=== PATIENT | female | born 1940 | race Caucasian/White ===

== ENCOUNTER 2018-09-18 13:35 | Inpatient (IN) ==
--- NOTE | 2018-09-18 13:57 | ED ---
HPI General Chief Complaint: Weakness Stated Complaint: Slurred Speech,Muscle Weakess Complaint Time Seen by Provider: 09/18/18 13:47 Source: patient Mode of arrival: wheelchair Limitations: other History of Present Illness HPI Narrative: The patient is a 78-year-old female who presents to the emergency department via private vehicle with her and a family friend for strokelike symptoms. The patient and her family and friends were going to lunch earlier today and stopped at approximately 1:30 PM to eat. When the patient tried to get out of the car she suddenly realized she had weakness and dysarthria. The family and friend immediately brought the patient to the emergency department. The patient did complain of weakness on the lower extremities bilaterally, dysarthria, and change in vision. The patient takes an aspirin a day, has no previous history of stroke. The patient does have a history of hypertension. Symptoms are moderate, started acutely at 130 P a.m. per Onset (ago): minute(s) Time: 13:59 Last Observed Normal: 13:30 Timing confirmed by: spouse and family member Location: Reports speech and right leg History of same: No Severity: moderate Quality: Reports weak Relieving factors: none Exacerbating factors: none On Anticoagulants: Yes (ASA) Related Data Allergies Allergy/AdvReac Type Severity Reaction Status Date / Time ampicillin Allergy Severe DIARRHEA Unverified 07/02/17 21:56 Review of Systems ROS: all other systems reviewed are negative [facility] Medical History Medical History Hypertension (Acute) Kidney disease (Acute) Social History Social History Substance History: No History of Abuse Second Hand Smoke Exposure: No Smoking Status: Never smoker How Often Do You Have a Drink Containing Alcohol: Never Recent Travel in [facility] within the Last 8 Weeks: No Recent Out of Country Travel within the Last 8 Weeks: No Immunization History Tetanus Immunization: <5 Years Exam Narrative Exam Narrative: GENERAL: Awake, alert, 78-year-old female who appears her stated age and is in no acute respiratory distress. SKIN: Focused skin assessment warm/dry. HEAD: Atraumatic. Normocephalic. EYES: Pupils equal and round. 3 mm bilateral and reactive. EOMs appear intact vertically and horizontally, however, patient has difficulty looking downwards. Patient is able to see fingers at a distance of 2 feet. However, visual dumont appear diminished in the lower dumont bilaterally. ENT: No nasal bleeding or discharge. Mucous membranes pink and moist. NECK: Trachea midline. No JVD. CARDIOVASCULAR: Regular rate and rhythm. No murmur appreciated. RESPIRATORY: No accessory muscle use. Clear to auscultation. Breath sounds equal bilaterally. GASTROINTESTINAL: Abdomen soft, non-tender, nondistended. Hepatic and splenic margins not palpable. MUSCULOSKELETAL: No obvious deformities. No clubbing. No cyanosis. No edema. NEUROLOGICAL: Awake and alert. Patient appears to have decreased visual dumont in the lower dumont bilaterally. Horizontal eye movements are intact, patient is able look vertically, occasionally has difficulty looking downwards. She is able to see fingers at a distance of 2 feet straight in front of her. Smile is symmetric. Tongue is midline. No drift of the upper extremities. Drift of the right lower extremity but it does not fall to the bed. Decreased sensation to soft touch right lower extremity. Sensation is symmetric on the arms and face. Finger to nose is normal. Heel to plascencia is normal. Patient is oriented x4. Mild dysarthria. PSYCHIATRIC: Appropriate mood and affect; insight and judgment normal. Course Initial Documented Vital Signs Temperature 98.2 F 09/18/18 13:42 Pulse Rate 96 H 09/18/18 13:42 Respiratory Rate 16 09/18/18 13:42 Blood Pressure 172/77 H 09/18/18 13:42 Pulse Oximetry 99 09/18/18 13:42 Last Documented Vital Signs Temperature 98.2 F 09/18/18 13:42 Pulse Rate 78 09/18/18 14:41 Respiratory Rate 19 09/18/18 14:41 Blood Pressure 160/72 H 09/18/18 14:41 Pulse Oximetry 100 09/18/18 14:41 Critical Care Time Critical Care Time: Yes Total Critical Care Time: 40 Attestation: Aggregate critical care time was 40 minutes. Time to perform other separately billable procedures was not included in the critical care time. My time did not include minutes spent treating any other patients simultaneously or on activities that did not directly contribute to the patient's treatment. The services I provided to this patient were to treat and/or prevent clinically significant deterioration that could result in: Hemorrhagic conversion, chronic neurologic deficit, aspiration, arrhythmia. I provided critical care services requiring my management, as noted below: Chart data review, documentation time, medication orders and management, vital sign assessments/reviewing monitor data, ordering and reviewing lab tests, ordering and interpreting/reviewing x-rays and diagnostic studies, care of the patient and discussion of the patient with the admitting physicians. NIH Stroke Scale NIH Stroke Scale Level of Consciousness: 0-Alert Orientation Questions: 0-Answers both correct Responds to Commands: 0-Both tasks correct Gaze Eye Movement: 0-Horizontal movement WNL Visual Dumont: 1-Partial hemianopia Facial Movement: 0-Normal Motor Functions Arm LEFT: 0-No drift Motor Functions Arm RIGHT: 0-No drift Motor Functions Leg LEFT: 0-No drift Motor Functions Leg RIGHT: 1-Drift before 5 seconds Limb Ataxia: 0-No ataxia Sensory Loss: 1-Mild sensory loss Best Language: 0-Normal Articulation: 1-Mild dysarthia Extinction or Inattention Sensory: 0-Absent Total: 4 Quality Measure Queries Stroke Last date observed well: 09/18/18 Last time observed well: 13:15 Medical Decision Making MDM Narrative Medical decision making narrative: The patient was brought back to echo room 50 immediately. The patient was placed on a stroke stretcher and an accurate weight was obtained. The patient stroke scale was obtained, was 4 with drift of the right lower extremity, decreased sensation right lower extremity, mild dysarthria, and visual field deficits of lower dumont bilaterally. I discussed the patient immediately with the neurologist, Dr. Mejía, who agrees with CT and CTA. He does recommend TPA if the patient's symptoms do not improve. I discussed the CT of the brain with the radiologist, Dr. Gómez, who states there is no acute intracranial hemorrhage. I had a discussion regarding TPA and the risk and benefits with the patient as well as the and friend at bedside. The patient is agreeable to TPA. The patient does have dysarthria and visual field deficits, most likely TPA is of benefit. The patient was hypertensive, therefore, was administered labetalol and placed on a Cardene drip. The patient will be admitted to the intensive surgical care unit for further evaluation. Medical Screen Exam Complete: Yes Emergency Medical Condition: Yes Differential Diagnosis Differential Diagnosis: Differential diagnosis includes CVA, TIA, hypertensive urgency, hypertensive emergency, intracranial hemorrhage, MS, transient focal neurologic deficit. Lab Data Lab results reviewed: Yes I reviewed the patient's lab results. Result diagrams: 09/18/18 13:50 Lab Results 09/18/18 09/18/18 09/18/18 Range/Units 13:50 13:50 13:50 WBC 9.2 (4.0-11.0) th/mm3 RBC 4.66 (4.00-5.30) mil/mm3 Hgb 15.0 (11.6-15.3) gm/dL POC Hgb (Calc) 13.9 (11.6-15.3) g/dL Hct 43.2 (35.0-46.0) % POC Hct 41.0 (35-46.0) % MCV 92.6 (80.0-100.0) fL MCH 32.1 (27.0-34.0) pg MCHC 34.6 (32.0-36.0) % RDW 13.8 (11.6-17.2) % Plt Count 248 (150-450) th/mm3 MPV 8.0 (7.0-11.0) fL Prelim Diff (Auto) Slide review pending Neut % (Auto) 65.1 (16.0-70.0) % Lymph % (Auto) 25.6 (9.0-44.0) % [place] % (Auto) 7.3 (0.0-8.0) % Eos % (Auto) 1.4 (0.0-4.0) % Baso % (Auto) 0.6 (0.0-2.0) % Neut # (Auto) 6.0 (1.8-7.7) th/mm3 Lymph # (Auto) 2.3 (1.0-4.8) th/mm3 [place] # (Auto) 0.7 (0.0-0.9) th/mm3 Eos # (Auto) 0.1 (0.0-0.4) th/mm3 Baso # (Auto) 0.1 (0.0-0.2) th/mm3 Differential Comment . PT 10.0 (9.8-11.6) sec INR 1.0 Ratio APTT 20.1 L (23.4-31.7) sec Fibrinogen 389 H (227-377) mg/dL POC Sodium 141 (137-144) mmol/L POC Potassium 4.3 (3.6-5.0) mmol/L POC Chloride 104 (102-111) mmol/L POC BUN 25 H (5-21) mg/dL POC Creatinine 1.4 H (0.6-1.3) mg/dL POC Glucose 94 (68-110) mg/dL Total Creatine Kinase 102 (26-192) U/L Troponin I Less than 0.02 L (0.02-0.05) ng/mL Beta HCG, Quant 5 (0-5) mIU/mL Imaging Data Radiologist's impression: Chest X-Ray 09/18/18 13:47 CONCLUSION: Mild interstitial prominence in the lungs. Old healed fracture of the right humerus. No infiltrate. Head CT 09/18/18 13:47 CONCLUSION: 1. Cerebral atrophy and chronic ischemic small vessel vasculopathy. Report was called by [Dr. Gómez to [facility] at 2:22 PM.] Discharge Plan Physicians Team ED Provider: Talat Youngblood Primary Care Provider: MITESH, Other Providers: Albert Mejía Discharge Interventions Interventions: Vital Signs Last Done: 09/18/18 14:13 Status ED Status: Admitted Patient
[2018-09-18] MEDS ORDERED: Alteplase Drip 61.5 MG in Syringe/Bag 1 EACH IV.SIG ONE (14:11)
[2018-09-18] MEDS ORDERED: Alteplase Bolus 9 MG/9 ML Syringe IV.PUSH ONE (14:11)
[2018-09-18 14:20] LABS: Baso # (Auto) 0.1 th/mm3 (0.0-0.2); Baso % (Auto) 0.6 % (0.0-2.0); Eos # (Auto) 0.1 th/mm3 (0.0-0.4); Eos % (Auto) 1.4 % (0.0-4.0); Hematocrit 43.2 % (35.0-46.0); Lymph # (Auto) 2.3 th/mm3 (1.0-4.8); Lymph % (Auto) 25.6 % (9.0-44.0); Mean Corpuscular HGB Conc 34.6 % (32.0-36.0); Mean Corpuscular Hemoglobin 32.1 pg (27.0-34.0); Mean Corpuscular Volume 92.6 fL (80.0-100.0); Mono # (Auto) 0.7 th/mm3 (0.0-0.9); Mono % (Auto) 7.3 % (0.0-8.0); Neut % (Auto) 65.1 % (16.0-70.0); Platelet Count 248 th/mm3 (150-450); Red Blood Count 4.66 mil/mm3 (4.00-5.30); Red Cell Distribution Width 13.8 % (11.6-17.2); White Blood Count 9.2 th/mm3 (4.0-11.0)
[2018-09-18] MEDS: niCARdipine Inj 25 MG in Sodium Chlor 0.9% Inj 240 ML IV.CONT PRN ×3 (14:20→23:08)
[2018-09-18] MEDS ORDERED: Labetalol HCl Inj 100 MG/20 ML Vial IV.PUSH ONE (14:23)
--- NOTE | 2018-09-18 14:26 | CT ---
EXAM DATE: 09/18/2018 2:00 PM EDT AGE/SEX: 78 years / Female INDICATIONS: Right side weakness CLINICAL DATA: This is the patient's initial encounter. Patient reports that signs and symptoms have been present for 1 day and indicates a pain score of 0/10. MEDICAL/SURGICAL HISTORY: Cerebrovascular disease. Hypertension. None. RADIATION DOSE: 32.47 CTDI (mGy) COMPARISON: [facility], CTA HEAD W CONTRAST W 3D, 09/18/2018. . TECHNIQUE: CT of the head without contrast. Using automated exposure control and adjustment of the mA and/or kV according to patient size, radiation dose was kept as low as reasonably achievable to ob tain optimal diagnostic quality images. DICOM format image data is available electronically for revi ew and comparison. FINDINGS: Cerebrum: The ventricles are normal for age. Mild cerebral atrophy. Areas of low attenuation through out the white matter. No evidence of midline shift, mass lesion, hemorrhage or acute infarction. No extraaxial fluid collections are seen. Posterior Fossa: The cerebellum and brainstem are intact. The 4th ventricle is midline. The cerebe llopontine angle is unremarkable. Extracranial: The visualized portion of the orbits is intact. Skull: The calvaria is intact. No evidence of skull fracture. CONCLUSION: 1. Cerebral atrophy and chronic ischemic small vessel vasculopathy. Report was called by [Dr. Gómez to [place] at 2:22 PM.] Electronically signed by: Freddy Gómez MD 09/18/2018 2:25 PM EDT
[2018-09-18 14:34] LABS: Activated Partial Thrombo Time 20.1 sec (23.4-31.7)
--- NOTE | 2018-09-18 14:38 | XR ---
EXAM DATE: 09/18/2018 2:25 PM EDT AGE/SEX: 78 years / Female INDICATIONS: Stroke alert. CLINICAL DATA: This is the patient's initial encounter. Patient reports that signs and symptoms have been present for 1 day and indicates a pain score of Nonresponsive. MEDICAL/SURGICAL HISTORY: None. None. COMPARISON: No prior exams available for comparison. FINDINGS: A single AP view of the chest demonstrates the lungs to be symmetrically aerated without evidence of mass, infiltrate or effusion. There is mild interstitial prominence throughout the lungs The cardiom ediastinal contours are unremarkable. Osseous structures are intact. CONCLUSION: Mild interstitial prominence in the lungs. Old healed fracture of the right humerus. No infiltrate. Electronically signed by: Srikanth Bellamy MD 09/18/2018 2:36 PM EDT
[2018-09-18 14:44] LABS: Beta HCG,Quantitative 5 mIU/mL (0-5)
[2018-09-18 14:46] LABS: Creatine Kinase 102 U/L (26-192)
--- NOTE | 2018-09-18 14:49 | CT ---
EXAM DATE: 09/18/2018 2:16 PM EDT AGE/SEX: 78 years / Female INDICATIONS: Stroke alert, right sided weakness CLINICAL DATA: This is the patient's initial encounter. Patient reports that signs and symptoms have been present for 1 day and indicates a pain score of 0/10. MEDICAL/SURGICAL HISTORY: Hypertension. None. RADIATION DOSE: 27.40 CTDI (mGy) ; Combined studies COMPARISON: [facility], CT HEAD W/O CONTRAST, 09/18/2018. . TECHNIQUE: Volumetric scanning was performed using a multi-row detector CT scanner during bolus infu dianelys of 80 ml Visipaque 320 (iodixanol) nonionic water-soluble contrast as a cumulative dose for mul tiple exams. The data was post processed with a variety of visualization algorithms including full volume maximum intensity projection, multi-planar sliding thin slab reformation, curved planar reform ation, and surface rendering techniques. Using automated exposure control and adjustment of the mA a nd/or kV according to patient size, radiation dose was kept as low as reasonably achievable to obtain optimal diagnostic quality images. DICOM format image data is available electronically for review a nd comparison. FINDINGS: Anterior Circulation: Intracranial Carotid Arteries: Right internal carotid artery is occluded. TODD: Slightly hypoplastic right A1 segment in comparison to the left. Otherwise, there is contralater al filling of the right TODD through the anterior communicating artery. No large vessel occlusion. MCA: Contralateral filling of the right MCA territories through the anterior communicating artery. Th e procedure indicating arteries are diminutive in caliber bilaterally. No evidence for large vessel o cclusion. Posterior Circulation: Distal Vertebral Arteries: Distal Vertebral arteries are symmetrical and patent. Basilar Artery: There is no evidence for aneurysm, vessel truncation or stenosis, and no evidence for vascular malformation. OCCUPATIONAL HEALTH PHYSIOTHERAPIST and Cerebellar Branches: There is no evidence for aneurysm, vessel truncation or stenosis, and no evidence for vascular malformation. CONCLUSION: 1. Occlusion of the right internal carotid artery. 2. Slightly hypoplastic right A1 segment. Otherwise, there is reconstitution of the anterior and mid dle cerebral arteries through the anterior communicating artery and likely posterior communicating ar teries although the P-comm's are also hypoplastic. No evidence for TODD or MCA large vessel occlusion. Electronically signed by: Samuel Portillo MD 09/18/2018 2:48 PM EDT
[2018-09-18] MEDS ORDERED: Bisacodyl 10 MG Supp RECTAL PRN (14:51)
[2018-09-18] MEDS ORDERED: Morphine Sulfate Inj 2 MG/ML Vial IV.PUSH PRN (14:51)
--- NOTE | 2018-09-18 15:13 | CT ---
EXAM DATE: 09/18/2018 3:00 PM EDT AGE/SEX: 78 years / Female INDICATIONS: Stroke alert, Right sided weakness CLINICAL DATA: This is the patient's initial encounter. Patient reports that signs and symptoms have been present for 1 day and indicates a pain score of 0/10. MEDICAL/SURGICAL HISTORY: Hypertension. None. RADIATION DOSE: 27.40 CTDI (mGy) ; Combined studies COMPARISON: . TECHNIQUE: Volumetric scanning was performed using a multirow detector CT scanner during bolus infus ion of 80 ml Visipaque 320 (iodixanol) nonionic water-soluble contrast as a cumulative dose for mult iple exams. The data was postprocessed with a variety of visualization algorithms including full-vo lume maximum intensity projection, multiplanar sliding thin-slab reformation, curved-planar reformati on, and surface-rendering techniques. Using automated exposure control and adjustment of the mA and/ or kV according to patient size, radiation dose was kept as low as reasonably achievable to obtain op timal diagnostic quality images. DICOM format image data is available electronically for review and comparison. FINDINGS: Aortic Arch: There is a three-vessel origin of the great vessels from the aorta. No evidence of ost ial narrowing Right Carotid: The common carotid artery is intact with mild atherosclerotic changes. There is compl ete occlusion of the right internal carotid artery starting at its origin. Left Carotid: The common carotid artery is intact. Mild atherosclerotic changes are seen at the orig in of the left internal carotid artery in the region of the bulb demonstrating mild narrowing without significant stenosis. The external carotid artery is intact. Vertebrals: The vertebral arteries have a symmetric diameter. No stenotic lesions are seen. Percent stenosis is calculated using the diameter of the stenotic region over the diameter of the nor mal distal internal carotid artery. CONCLUSION: 1. Complete occlusion of the right internal carotid artery. 2. Mild narrowing the left internal carotid artery. Electronically signed by: Freddy Gómez MD 09/18/2018 3:11 PM EDT
[2018-09-18 15:16] LABS: Platelet Estimate Normal (Normal); Platelet Morphology Normal (Normal); RBC Morphology Normal (Normal)
[2018-09-18 15:58] LABS: Bacteria,Urine Rare /hpf; Bilirubin,Urine Negative (Negative); Clarity,Urine Hazy (Clear); Color,Urine Yellow (Yellw/Straw); Glucose,Urine (UA) Negative (Negative); Leukocyte Esterase,Urine Trace (Negative); Nitrite,Urine Negative (Negative); Squamous Epithelial Cell,Urine 2 /hpf (0-5)
[2018-09-18 16:17] LABS: Amphetamine Screen,Urine Neg (Neg); Barbiturate Screen,Urine Neg (Neg); Cannabinoid Screen,Urine Neg (Neg); Cocaine Screen,Urine Neg (Neg)
[2018-09-18 16:34] LABS: Opiate Screen,Urine Neg (Neg)
[2018-09-18 17:36] LABS: Free T4 (Free Thyroxine) 0.94 ng/dL (0.76-1.46); Thyroid Stimulating Hormone 0.462 uIU/mL (0.358-3.740)
--- NOTE | 2018-09-18 18:02 | MB ---
cc: Albert Mejía MD DATE: 09/18/2018 HISTORY OF PRESENT ILLNESS: This is a 78-year-old right-handed woman with a history of hypertension, borderline diabetes, hypercholesterolemia, 1 kidney and hypothyroidism. She does take a baby aspirin a day. Today, she is going out for lunch and had a sudden onset of slurred speech and the car. She was driven here and was felt to have some numbness in the right leg, slurred speech and diminished vision inferiorly. As such, we did give her tPA. Her NIH stroke scale was 4 at that time. She has since recovered. SOCIAL HISTORY: Not a smoker or drinker. Lives with her . FAMILY HISTORY: Negative cancer, seizure, stroke. REVIEW OF SYSTEMS: She denied any history of MN, CABG, stent, angioplasty, atrial fibrillation, Coumadin, heart problems, hepatic or pulmonary disease, lupus, ulcer, cancer, seizure, prior stroke. MEDICATIONS AT HOME: She was taking a baby aspirin a day. Otherwise, none listed for home medications. PHYSICAL EXAMINATION: VITAL SIGNS: Sinus rhythm at 69. Afebrile. Highest pulse 104. Blood pressure initially up to 202/89. She was given a Cardene drip and down to 128/57, now 174/106. HEART: Regular rate and rhythm. I did not detect a murmur. There is probably a 2/6 systolic ejection murmur that radiates to the right carotid versus a carotid bruit, but I think probably more of a heart murmur that radiates there. NEUROLOGIC: The pupils are equal. Visual koehler are full. There is no diminished vision inferiorly. Extraocular movements intact without nystagmus. Face is symmetric with normal sensation. Tongue is midline. There is no drift. She has normal strength in her upper and lower extremities bilaterally. DTRs are trace throughout. Toes downgoing bilaterally. Pinprick is intact throughout except for mildly diminished at the feet bilaterally. She is not ataxic on [id number]. Speech is fluent. She is not aphasic. Names well and gives a good history. No longer slurred speech. LABORATORY DATA: CBC is normal. Urine drug screen pending. UA: 7 white cells, trace leukocyte esterase only. BMP: Creatinine is 1.4. Troponin, CPK, beta hCG, coags normal. A CT of the head was read as no AC or MC occlusion, but it turns out, she has a right internal carotid artery occlusion. She appears to fill well across the anterior communicating artery. Neck CTA showed a complete right internal carotid artery occlusion. ASSESSMENT AND PLAN: Her neurological exam is back to normal at this time. She does have that right carotid occlusion. It is unclear if that is old or not, probably I would suspect is chronic. We will check an MRI of the brain, an echo and a Holter. Twenty-four hours after the tPA is done, we will give her Plavix and I will be following in the hospital. MD BRANDI Ridley/obed , 04:07 PM , 04:17 PM
[2018-09-18] MEDS ORDERED: Gadobutrol PF 7.5 MMOL/7.5 ML Vial (for RAD) IV.SIG ONE (18:17)
--- NOTE | 2018-09-18 18:29 | ECHRPT ---
Indication: CVA/TIA CONCLUSIONS Normal left ventricular size. There is assymetric septal hypertrophy. The left ventricular systolic function is low normal with an estimated ejection fraction in the rang e of 50- 55%. Mild mitral valve regurgitation. Moderate mitral annular calcification. The estimated pulmonary arterial pressure is 29 mmHg. There is mild tricuspid valve regurgitation. There is a small pericardial effusion present. BP: / HR: Rhythm: MEASUREMENTS (Male / Female) Normal Values Technical Quality:Very technically difficult study 2D ECHO LV Diastolic Diameter PLAX 3.3 cm 4.2 - 5.9 / 3.9 - 5.3 cm LV Systolic Diameter PLAX 2.6 cm IVS Diastolic Thickness 2.1 cm 0.6 - 1.0 / 0.6 - 0.9 cm LVPW Diastolic Thickness 1.4 cm 0.6 - 1.0 / 0.6 - 0.9 cm LV Relative Wall Thickness 1.1 RV Internal Dim ED PLAX 2.1 cm LVOT Diameter 1.5 cm Aortic Root Diameter 2.1 cm LA Systolic Diameter LX 3.5 cm 3.0 - 4.0 / 2.7 - 3.8 cm M-MODE Aortic Root Diameter MM 2.8 cm LA Systolic Diameter MM 4.3 cm LA Ao Ratio MM 1.5 AV Cusp Separation MM 1.5 cm DOPPLER AV Peak Velocity 155.0 cm/s AV Peak Gradient 9.6 mmHg LVOT Peak Velocity 129.0 cm/s LVOT Peak Gradient 6.7 mmHg AV Area Cont Eq pk 1.5 cm Mitral E Point Velocity 44.9 cm/s Mitral A Point Velocity 78.0 cm/s Mitral E to A Ratio 0.6 LV E' Lateral Velocity 3.9 cm/s Mitral E to LV E' Lateral Ratio 11.5 LV E' Septal Velocity 3.8 cm/s Mitral E to LV E' Septal Ratio 11.8 TR Peak Velocity 218.0 cm/s TR Peak Gradient 19.0 mmHg Right Atrial Pressure 10.0 mmHg Pulmonary Artery Systolic Pressu 29.0 mmHg Right Ventricular Systolic Press 29.0 mmHg PV Peak Velocity 141.0 cm/s PV Peak Gradient 8.0 mmHg FINDINGS LEFT VENTRICLE Normal left ventricular size. There is assymetric septal hypertrophy. The left ventricular systolic function is low normal with an estimated ejection fraction in the rang e of 50- 55%. No regional wall motion abnormalities are present. RIGHT VENTRICLE Normal right ventricular size and systolic function. LEFT ATRIUM The left atrial size is normal. RIGHT ATRIUM The right atrial size is normal. ATRIAL SEPTUM Normal atrial septal thickness without atrial level shunting by limited color doppler interrogation. AORTA The aortic root and proximal ascending aorta are normal in size on limited imaging. MITRAL VALVE Structurally normal mitral valve. Mild mitral valve regurgitation. Moderate mitral annular calcification. AORTIC VALVE The aortic valve is not well visualized. Aortic valve sclerosis is present. No aortic valve stenosis or regurgitation. TRICUSPID VALVE The tricuspid valve is not well visualized. The estimated pulmonary arterial pressure is 29 mmHg. There is mild tricuspid valve regurgitation. PULMONARY VALVE No pulmonary valve regurgitation or stenosis. VESSELS The inferior vena cava is normal in size. PERICARDIUM There is a small pericardial effusion present. [address] (Electronically Signed) Final Date:18 September 2018 18:29
[2018-09-18] MEDS ORDERED: Dextrose 50% in Water 50 ML Vial IV.PUSH PRN (18:31)
--- NOTE | 2018-09-18 18:37 | P.HPCC ---
History of Present Illness Service: Critical care medicine Primary Care Physician: UNKNOWN Chief Complaint: Slurred speech, unsteady walking History of Present Illness: This 78-year-old right-handed woman developed sudden speech difficulty earlier today and when attempting to walk she was unsteady. Her family recognized stroke symptomatology and brought her straight to the emergency department where she was found to be dysarthric, unsteady, and weak in the right arm. Blood pressure was controlled with nicardipine and she received TPA after consultation with the neurologist. I have seen her initially on the floor following her arrival and her symptoms have largely resolved. She does sense that her words were abnormal initially despite appearing normal to others. Her history is significant for hypertension and diabetes. We will plan to hold her outpatient antihypertensives, amlodipine and clonidine, tonight and adjust the Cardene drip for better control. - Diagnosis (1) Hypertensive urgency (2) Acute CVA (cerebrovascular accident) (3) Dysarthria Inpatient Certification: I certify that the inpatient services were ordered in accordance with Medicare regulations governing the order. This includes certification that hospital inpatient services are reasonable and necessary and in the case of services not specified as inpatient-only under 42 CFR 419.22(n), that they are appropriately provided as inpatient services in accordance to with the 2-midnight benchmark under 43 CFR 412.3(e) Estimated Total Length of Stay (Days): 3 Plans for Post Hospital Care: Home Review of Systems No chest pain or shortness of breath. PMFSH - History History Provided By: Patient - Medical History Medical History: Medical History (Last Updated 09/18/18 @ 13:56 by Mariela Gonzalez) Hypertension Kidney disease - Tobacco History Second Hand Smoke Exposure: No Smoking Status: Never smoker - Alcohol History How Often Do You Have a Drink Containing Alcohol: Never - Substance Use History Substance History: No History of Abuse - Travel History Recent Travel in the [place] Within the Last 8 Weeks: No Recent Travel Out of the Country Within the Last 8 Weeks: No - Immunization History Tetanus Immunization: <5 Years Medications and Allergies Active Medications: Active Medications Al Hydroxide/Mg Hydroxide (Milk Of Magnesia Liq) 30 ml PO Q12H PRN PRN Reason: Mild Constipation Albuterol (Duoneb Neb (Prn)) 1 ampul NEB Q2HR NEB PRN PRN Reason: WHEEZING Bisacodyl (Dulcolax Supp) 10 mg RECTAL DAILY PRN PRN Reason: SEVERE CONSITIPATION Chlorhexidine Gluconate (Chlorhexidine 2% Cloth) 3 pack TOPICAL DAILY@0400 CORDELIA Stop: 09/24/18 03:59 Chlorhexidine Gluconate (Chlorhexidine 2% Cloth) 3 pack TOPICAL DAILY@0400 PRN PRN Reason: Extra cloth needed Stop: 09/24/18 03:59 Dextrose (D50w Vial) 50 ml IV.PUSH UNSCH PRN PRN Reason: PER HYPOGLYCEMIA PROTOCOL Famotidine (Pepcid Pf Inj) 20 mg IV.PUSH Q12HR CORDEL[place] Glucagon (Glucagon Inj) 1 mg OTHER PRN PRN PRN Reason: for Hypoglycemia Protocol Hydralazine HCl (Apresoline Inj) 10 mg IV.PUSH Q2H PRN PRN Reason: SBP > 170 Sodium Chloride (Ns Inj) 1,000 mls @ 70 mls/hr IV.CONT .[id number] CORDELIA Nicardipine HCl 25 mg/ Sodium (Chloride) 250 mls @ 50 mls/hr IV.CONT TITRATE PRN; Protocol PRN Reason: Per Protocol Last Titration: 09/18/18 15:11 Dose: 0 mg/hr, 0 mls/hr Insulin Aspart (Novolog Insulin Correctional Sugar Inj) 0 unit SQ Q6HR [facility]; Protocol Labetalol HCl (Trandate Inj) 20 mg IV.PUSH Q2H PRN PRN Reason: SBP > 180 Lactulose (Lactulose Liq) 30 ml PO DAILY PRN PRN Reason: SEVERE CONSITIPATION Morphine Sulfate (Morphine Inj) 2 mg IV.PUSH Q2H PRN PRN Reason: PAIN SCALE 6 TO 10 Senna/Docusate Sodium (Camila-Colace) 1 tab PO BID [facility] Sennosides (Senokot) 17.2 mg PO Q12H PRN PRN Reason: Moderate Constipation Sodium Chloride (Ns Flush) 2 ml IV.FLUSH BID [facility] Sodium Chloride (Ns Flush) 2 ml IV.FLUSH PRN PRN PRN Reason: FLUSH AFTER USING IV ACCESS Allergies Allergy/AdvReac Type Severity Reaction Status Date / Time ampicillin Allergy Severe DIARRHEA Unverified 07/02/17 21:56 Home Medications Medication Instructions Recorded Confirmed Type amlodipine 10 mg PO DAILY 09/18/18 09/18/18 History clonidine HCl 0.1 mg PO BID 09/18/18 09/18/18 History glipizide 5 mg PO DAILY 09/18/18 09/18/18 History linagliptin [Tradjenta] 5 mg PO DAILY 09/18/18 09/18/18 History lovastatin 20 mg PO HS 09/18/18 09/18/18 History omeprazole 20 mg PO HS 09/18/18 09/18/18 History Results - Labs CBC & Chem 7: 09/18/18 13:50 Labs: Short CBC 09/18/18 Range/Units 13:50 WBC 9.2 (4.0-11.0) th/mm3 Hgb 15.0 (11.6-15.3) gm/dL Hct 43.2 (35.0-46.0) % Plt Count 248 (150-450) th/mm3 Cardiac Enzymes 09/18/18 Range/Units 13:50 Total Creatine Kinase 102 (26-192) U/L Troponin I Less than 0.02 L (0.02-0.05) ng/mL Urine 09/18/18 Range/Units 15:30 Urine Color Yellow (Yellw/Straw) Urine Clarity Hazy H (Clear) Urine pH 6.0 (5.0-8.5) Ur Specific Jackson 1.020 (1.002-1.035) Urine Protein 500 or greater (Neg-Trace) mg/dL Urine Glucose (UA) Negative (Negative) mg/dL - Imaging Impressions Chest X-Ray 09/18/18 13:47 CONCLUSION: Mild interstitial prominence in the lungs. Old healed fracture of the right humerus. No infiltrate. Head CT 09/18/18 13:47 CONCLUSION: 1. Cerebral atrophy and chronic ischemic small vessel vasculopathy. Report was called by [Dr. Gómez to [place] at 2:22 PM.] Head CTA 09/18/18 13:47 CONCLUSION: 1. Occlusion of the right internal carotid artery. 2. Slightly hypoplastic right A1 segment. Otherwise, there is reconstitution of the anterior and middle cerebral arteries through the anterior communicating artery and likely posterior communicating arteries although the P-comm's are also hypoplastic. No evidence for TODD or MCA large vessel occlusion. Neck CTA 09/18/18 13:47 CONCLUSION: 1. Complete occlusion of the right internal carotid artery. 2. Mild narrowing the left internal carotid artery. Exam Vital signs: Vital Signs 09/18/18 13:42 09/18/18 13:45 09/18/18 13:49 Temperature 98.2 F Pulse Rate 96 H Respiratory Rate 16 Blood Pressure 172/77 H Pulse Oximetry 99 96 96 09/18/18 14:13 09/18/18 14:26 09/18/18 14:41 Temperature Pulse Rate 84 73 78 Respiratory Rate 20 19 19 Blood Pressure 202/89 H 173/74 H 160/72 H Pulse Oximetry 100 110 H 100 09/18/18 14:56 09/18/18 15:05 09/18/18 15:11 Temperature Pulse Rate 75 84 78 Respiratory Rate 18 19 Blood Pressure 162/72 H 153/69 H 126/58 L Pulse Oximetry 98 99 99 09/18/18 15:15 09/18/18 15:20 09/18/18 15:34 Temperature Pulse Rate 80 73 104 H Respiratory Rate 17 20 17 Blood Pressure 142/71 H 154/79 H 128/57 L Pulse Oximetry 99 100 100 09/18/18 15:47 09/18/18 15:56 09/18/18 16:10 Temperature Pulse Rate 69 75 81 Respiratory Rate 20 19 Blood Pressure 174/106 H 206/83 H 154/69 H Pulse Oximetry 99 96 09/18/18 16:26 09/18/18 17:00 Temperature Pulse Rate 83 90 Respiratory Rate 20 20 Blood Pressure 150/72 H 146/77 H Pulse Oximetry 97 98 Intake & Output 09/17/18 09/18/18 09/18/18 18:59 06:59 18:59 Intake Total 61.5 / 61.5 Balance 61.5 / 61.5 Weight 76.2 kg Intake: IV 61.5 / 61.5 Activase Drip 61.5 MG In Bag/ 61.5 / 61.5 Syringe 1 EACH @ 61.5 mls/hr IV .SIG ONCE ONE Rx#:[id number] Narrative: General: Calm, alert Head: Atraumatic, normal Neck: Supple, airway widely patent, no obstructive sounds Lungs: Clear bilaterally, no wheezes or crackles, comfortable respiratory pattern Heart: Normal S1-S2, regular rate and rhythm, 3/6 systolic murmur RSB, 2nd ICS, no JVD Abdomen: Soft, nondistended, no guarding, bowel sounds active Extremities: Warm, well-perfused, no peripheral edema Neuro: Pupils are equal and react to light. Extraocular movements are intact. She moves 4 extremities to command and spontaneously. 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 Caprini VTE Risk Assessment Caprini VTE Risk Assessment: Moderate/High Risk (score >= 2) VTE Pharmacological Exception Reason: High risk for bleeding Caprini Risk Assessment Model: Point Value = 1 Point Value = 2 Point Value = 3 Point Value = 5 Age 41-60 Minor surgery BMI > 25 kg/m2 Swollen legs Varicose veins or History of unexplained or recurrent spontaneous Oral contraceptives or hormone replacement Sepsis (< 1 month) Serious lung disease, including pneumonia (< 1 month) Abnormal pulmonary function Acute myocardial infarction Congestive heart failure (< 1 month) History of inflammatory bowel disease Medical patient at bed rest Age 61-74 Arthroscopic surgery Major open surgery (> 45 min) Laparoscopic surgery (> 45 min) Malignancy Confined to bed (> 72 hours) Immobilizing plaster cast Central venous access Age >= 75 History of VTE Family history of VTE Factor V Leiden Prothrombin [id number] Lupus anticoagulant Anticardiolipin antibodies Elevated serum homocysteine Heparin-induced thrombocytopenia Other congenital or acquired thrombophilia Stroke (< 1 month) Elective arthroplasty Hip, pelvis, or leg fracture Acute spinal cord injury (< 1 month) Prophylaxis Regimen: Total Risk Factor Score Risk Level Prophylaxis Regimen 0-1 Low Early ambulation 2 Moderate Order ONE of the following: *Sequential Compression Device (SCD) *Heparin 5000 units SQ BID 3-4 Higher Order ONE of the following medications: *Heparin 5000 units SQ TID *Enoxaparin/Lovenox 40 mg SQ daily (WT < 150 kg, CrCl > 30 mL/min) *Enoxaparin/Lovenox 30 mg SQ daily (WT < 150 kg, CrCl > 10-29 mL/min) *Enoxaparin/Lovenox 30 mg SQ BID (WT < 150 kg, CrCl > 30 mL/min) AND/OR *Sequential Compression Device (SCD) 5 or more Highest Order ONE of the following medications: *Heparin 5000 units SQ TID (Preferred with Epidurals) *Enoxaparin/Lovenox 40 mg SQ daily (WT < 150 kg, CrCl > 30 mL/min) *Enoxaparin/Lovenox 30 mg SQ daily (WT < 150 kg, CrCl > 10-29 mL/min) *Enoxaparin/Lovenox 30 mg SQ BID (WT < 150 kg, CrCl > 30 mL/min) AND *Sequential Compression Device (SCD) Assessment and Plan - Problem List (1) Hypertensive urgency Code(s): I16.0 - Hypertensive urgency Status: Acute (2) Acute CVA (cerebrovascular accident) Code(s): I63.9 - Cerebral infarction, unspecified Status: Acute (3) Dysarthria Code(s): R47.1 - Dysarthria and anarthria Status: Acute - Assessment and Plan Plan: Plan: 1. Maintain blood pressure control with nicardipine, and aim for less than 160 systolic after TPA 2. Restart amlodipine and clonidine in a.m. 3. Repeat head CT after 24 hours 4. Lipid profile 5. Cardiac echo 6. Post TPA order set protocol 7. Pepcid for GI ulcer prophylaxis 8. No chemical DVT prophylaxis due to risk of bleed 9. Serial neurologic exams 10. Maintenance IV isotonic crystalloid Overall impression: Patient arrived critically ill with acute ischemic cerebrovascular accident including dysarthria and right extremity weakness. She required nicardipine for control of hypertensive urgency and subsequently received TPA. We will follow her neurologic exam closely tonight and maintain blood pressure control. She has a murmur consistent with aortic stenosis - review ECHO. Critical care 38 minutes
[2018-09-18] MEDS: Sod Chloride 0.9% Inj 1,000 ML IV.CONT SCH (18:52)
--- NOTE | 2018-09-18 19:12 | MR ---
EXAM DATE: 09/18/2018 6:29 PM EDT AGE/SEX: 78 years / Female INDICATIONS: CVA. CLINICAL DATA: This is the patient's initial encounter. Patient reports that signs and symptoms have been present for 1 day and indicates a pain score of 0/10. MEDICAL/SURGICAL HISTORY: Hypertension. Renal disease, end stage. Appendectomy. sect ion. COMPARISON: No prior exams available for comparison. TECHNIQUE: Multiplanar, multisequence examination of the brain was performed without and with 7.5 ml Gadavist (gadobutrol) contrast as a single exam dose. FINDINGS: There is moderate chronic ischemic changes in the periventricular white matter. No recent infarct jarad ntified on diffusion-weighted images. Absent flow void distal right internal carotid artery character istic of right internal carotid artery occlusion. No mass effect or midline shift. No hydrocephalus. No abnormal extra-axial fluid. No abnormal enhanci ng lesions within the brain. CONCLUSION: 1. No acute findings. No recent infarct. 2. Occlusion of the distal right internal carotid artery. Moderate to severe chronic white matter is chemic changes. Electronically signed by: Bunny Warner MD 09/18/2018 7:11 PM EDT
[2018-09-18] MEDS: Famotidine PF Inj 20 MG/2 ML Vial IV.PUSH SCH (21:27)
[2018-09-18] MEDS: Senna/Docusate Sodium 8.6/50 MG Tablet PO SCH (21:27)
[2018-09-19] MEDS: Insulin NovoLOG Aspart Correctional Sugar Inj SQ SCH ×4 (01:32→18:53)
[2018-09-19] MEDS: niCARdipine Inj 25 MG in Sodium Chlor 0.9% Inj 240 ML IV.CONT PRN ×2 (01:32→09:28)
[2018-09-19] MEDS ORDERED: Chlorhexidine Gluconate 2% 1 Pack (2 Cloths) TOPICAL PRN (04:00)
[2018-09-19] MEDS: Chlorhexidine Gluconate 2% 1 Pack (2 Cloths) TOPICAL SCH (05:44)
[2018-09-19] MEDS: Sod Chloride 0.9% Inj 1,000 ML IV.CONT SCH ×2 (06:53→18:53)
--- NOTE | 2018-09-19 08:11 | P.PNNEU ---
Subjective Active Medications: Active Medications Al Hydroxide/Mg Hydroxide (Milk Of Magnesia Liq) 30 ml PO Q12H PRN PRN Reason: Mild Constipation Albuterol (Duoneb Neb (Prn)) 1 ampul NEB Q2HR NEB PRN PRN Reason: WHEEZING Bisacodyl (Dulcolax Supp) 10 mg RECTAL DAILY PRN PRN Reason: SEVERE CONSITIPATION Chlorhexidine Gluconate (Chlorhexidine 2% Cloth) 3 pack TOPICAL DAILY@0400 [facility] Stop: 09/24/18 03:59 Last Admin: 09/19/18 05:44 Dose: 3 pack Chlorhexidine Gluconate (Chlorhexidine 2% Cloth) 3 pack TOPICAL DAILY@0400 PRN PRN Reason: Extra cloth needed Stop: 09/24/18 03:59 Dextrose (D50w Vial) 50 ml IV.PUSH UNSCH PRN PRN Reason: PER HYPOGLYCEMIA PROTOCOL Famotidine (Pepcid Pf Inj) 20 mg IV.PUSH Q12HR [facility] Last Admin: 09/18/18 21:27 Dose: 20 mg Glucagon (Glucagon Inj) 1 mg OTHER PRN PRN PRN Reason: for Hypoglycemia Protocol Hydralazine HCl (Apresoline Inj) 10 mg IV.PUSH Q2H PRN PRN Reason: SBP > 170 Sodium Chloride (Ns Inj) 1,000 mls @ 70 mls/hr IV.CONT .[id number] [facility] Last Admin: 09/19/18 06:53 Dose: 70 mls/hr Nicardipine HCl 25 mg/ Sodium (Chloride) 250 mls @ 50 mls/hr IV.CONT TITRATE PRN; Protocol PRN Reason: Per Protocol Last Admin: 09/19/18 01:32 Dose: 5 mg/hr, 50 mls/hr Insulin Aspart (Novolog Insulin Correctional Sugar Inj) 0 unit SQ Q6HR [facility]; Protocol Last Admin: 09/19/18 06:53 Dose: Not Given Labetalol HCl (Trandate Inj) 20 mg IV.PUSH Q2H PRN PRN Reason: SBP > 180 Lactulose (Lactulose Liq) 30 ml PO DAILY PRN PRN Reason: SEVERE CONSITIPATION Morphine Sulfate (Morphine Inj) 2 mg IV.PUSH Q2H PRN PRN Reason: PAIN SCALE 6 TO 10 Senna/Docusate Sodium (Camila-Colace) 1 tab PO BID [facility] Last Admin: 09/18/18 21:27 Dose: Not Given Sennosides (Senokot) 17.2 mg PO Q12H PRN PRN Reason: Moderate Constipation Sodium Chloride (Ns Flush) 2 ml IV.FLUSH BID [facility] Last Admin: 09/18/18 21:27 Dose: 2 ml Sodium Chloride (Ns Flush) 2 ml IV.FLUSH PRN PRN PRN Reason: FLUSH AFTER USING IV ACCESS Allergies/Adverse Reactions: Allergies Allergy/AdvReac Type Severity Reaction Status Date / Time ampicillin Allergy Intermediate DIARRHEA Verified 09/18/18 23:08 Physical Exam Vital signs: Vital Signs 09/18/18 13:42 09/18/18 13:45 09/18/18 13:49 Temperature 98.2 F Pulse Rate 96 H Respiratory Rate 16 Blood Pressure 172/77 H Pulse Oximetry 99 96 96 09/18/18 14:13 09/18/18 14:26 09/18/18 14:41 Temperature Pulse Rate 84 73 78 Respiratory Rate 20 19 19 Blood Pressure 202/89 H 173/74 H 160/72 H Pulse Oximetry 100 110 H 100 09/18/18 14:56 09/18/18 15:05 09/18/18 15:11 Temperature Pulse Rate 75 84 78 Respiratory Rate 18 19 Blood Pressure 162/72 H 153/69 H 126/58 L Pulse Oximetry 98 99 99 09/18/18 15:15 09/18/18 15:20 09/18/18 15:34 Temperature Pulse Rate 80 73 104 H Respiratory Rate 17 20 17 Blood Pressure 142/71 H 154/79 H 128/57 L Pulse Oximetry 99 100 100 09/18/18 15:47 09/18/18 15:56 09/18/18 16:10 Temperature Pulse Rate 69 75 81 Respiratory Rate 20 19 Blood Pressure 174/106 H 206/83 H 154/69 H Pulse Oximetry 99 96 09/18/18 16:26 09/18/18 17:00 09/18/18 18:45 Temperature Pulse Rate 83 90 75 Respiratory Rate 20 20 21 Blood Pressure 150/72 H 146/77 H Pulse Oximetry 97 98 98 09/18/18 18:46 09/18/18 19:00 09/18/18 19:01 Temperature 97.9 F Pulse Rate 72 71 71 Respiratory Rate 25 H 26 H 24 Blood Pressure 177/77 H 150/67 H Pulse Oximetry 98 98 99 09/18/18 19:16 09/18/18 19:31 09/18/18 19:44 Temperature Pulse Rate 73 73 Respiratory Rate 25 H 23 Blood Pressure 130/61 137/60 Pulse Oximetry 96 96 94 L 09/18/18 19:46 09/18/18 20:00 09/18/18 20:01 Temperature 98.1 F Pulse Rate 73 76 76 Respiratory Rate 48 H 39 H 30 H Blood Pressure 138/65 149/70 H Pulse Oximetry 95 95 93 L 09/18/18 20:16 09/18/18 20:31 09/18/18 20:46 Temperature Pulse Rate 74 75 77 Respiratory Rate 30 H 20 19 Blood Pressure 132/63 116/58 L 113/58 L Pulse Oximetry 95 93 L 94 L 09/18/18 21:00 09/18/18 21:01 09/18/18 21:16 Temperature Pulse Rate 77 78 77 Respiratory Rate 23 25 H 25 H Blood Pressure 128/60 131/61 Pulse Oximetry 93 L 93 L 94 L 09/18/18 21:31 09/18/18 21:46 09/18/18 22:00 Temperature Pulse Rate 76 77 76 Respiratory Rate 21 29 H 20 Blood Pressure 120/58 L 122/60 Pulse Oximetry 94 L 95 94 L 09/18/18 22:01 09/18/18 22:16 09/18/18 22:31 Temperature Pulse Rate 76 78 72 Respiratory Rate 21 45 H 30 H Blood Pressure 119/56 L 136/60 111/56 L Pulse Oximetry 94 L 96 95 09/18/18 22:46 09/18/18 23:00 09/18/18 23:01 Temperature Pulse Rate 70 73 71 Respiratory Rate 18 24 20 Blood Pressure 105/52 L 116/53 L Pulse Oximetry 95 92 L 93 L 09/18/18 23:16 09/18/18 23:31 09/18/18 23:46 Temperature Pulse Rate 76 72 75 Respiratory Rate 56 H 20 24 Blood Pressure 127/65 115/58 L 112/55 L Pulse Oximetry 98 95 94 L 09/19/18 00:00 09/19/18 00:01 09/19/18 00:16 Temperature 97.9 F Pulse Rate 74 73 81 Respiratory Rate 25 H 24 29 H Blood Pressure 120/59 L 120/59 L 123/60 Pulse Oximetry 95 96 95 09/19/18 00:31 09/19/18 00:46 09/19/18 01:00 Temperature Pulse Rate 75 66 71 Respiratory Rate 43 H 20 28 H Blood Pressure 111/56 L 108/55 L Pulse Oximetry 95 98 97 09/19/18 01:01 09/19/18 01:16 09/19/18 01:31 Temperature Pulse Rate 69 72 69 Respiratory Rate 21 19 18 Blood Pressure 126/57 L 111/54 L 110/55 L Pulse Oximetry 97 95 93 L 09/19/18 01:46 09/19/18 02:00 09/19/18 02:01 Temperature Pulse Rate 72 69 69 Respiratory Rate 21 21 20 Blood Pressure 127/63 128/61 Pulse Oximetry 94 L 92 L 92 L 09/19/18 02:16 09/19/18 02:31 09/19/18 02:46 Temperature Pulse Rate 69 70 76 Respiratory Rate 20 19 31 H Blood Pressure 113/58 L 120/56 L 137/62 Pulse Oximetry 92 L 90 L 97 09/19/18 03:00 09/19/18 03:01 09/19/18 03:16 Temperature Pulse Rate 73 73 74 Respiratory Rate 26 H 29 H 38 H Blood Pressure 124/58 L 128/60 Pulse Oximetry 98 98 98 09/19/18 03:31 09/19/18 03:32 09/19/18 03:46 Temperature Pulse Rate 75 75 75 Respiratory Rate 37 H 30 H 20 Blood Pressure 151/65 H 154/60 H 133/58 L Pulse Oximetry 99 98 97 09/19/18 04:00 09/19/18 04:01 09/19/18 04:16 Temperature 98 F Pulse Rate 76 75 78 Respiratory Rate 20 19 30 H Blood Pressure 131/62 136/61 Pulse Oximetry 94 L 94 L 96 09/19/18 04:31 09/19/18 04:46 09/19/18 05:00 Temperature Pulse Rate 75 76 77 Respiratory Rate 20 25 H 19 Blood Pressure 128/62 131/62 Pulse Oximetry 90 L 95 95 09/19/18 05:01 09/19/18 05:16 09/19/18 05:31 Temperature Pulse Rate 78 79 78 Respiratory Rate 25 H 22 38 H Blood Pressure 123/58 L 128/62 128/61 Pulse Oximetry 96 95 97 09/19/18 05:46 09/19/18 06:00 09/19/18 06:01 Temperature Pulse Rate 77 82 81 Respiratory Rate 23 29 H 32 H Blood Pressure 124/58 L 132/62 Pulse Oximetry 95 96 96 09/19/18 06:16 09/19/18 06:31 Temperature Pulse Rate 80 81 Respiratory Rate 29 H 42 H Blood Pressure 132/63 136/56 L Pulse Oximetry 95 97 Intake & Output 09/18/18 09/19/18 09/19/18 18:59 06:59 18:59 Intake Total 61.5 / 61.5 1750 / 1750 Output Total 500 / 500 Balance 61.5 / 61.5 1250 / 1250 Weight 76.2 kg 78.7 kg Intake: IV 61.5 / 61.5 1750 / 1750 NS Inj 1,000 ML @ 70 mls/hr IV. 1000 / 1000 CONT .[id number] [facility] Rx#:[id number] Cardene Inj 25 MG In NS Inj 240 750 / 750 ML @ 5 MG/HR 50 mls/hr IV.CONT TITRATE PRN Rx#:[id number] Activase Drip 61.5 MG In Bag/ 61.5 / 61.5 Syringe 1 EACH @ 61.5 mls/hr IV .SIG ONCE ONE Rx#:[id number] Output: Urine 500 / 500 Other: # Voids 1 2 Weight On Admission 76.2 kg Narrative: sr vff face sym nl speech 5/5 t/o Objective Laboratory Results - last 24 hr 09/18/18 09/18/18 09/18/18 13:50 13:50 13:50 WBC 9.2 RBC 4.66 Hgb 15.0 POC Hgb (Calc) 13.9 Hct 43.2 POC Hct 41.0 MCV 92.6 MCH 32.1 MCHC 34.6 RDW 13.8 Plt Count 248 MPV 8.0 Prelim Diff (Auto) Slide review pending Neut % (Auto) 65.1 Lymph % (Auto) 25.6 [place] % (Auto) 7.3 Eos % (Auto) 1.4 Baso % (Auto) 0.6 Neut # (Auto) 6.0 Lymph # (Auto) 2.3 [place] # (Auto) 0.7 Eos # (Auto) 0.1 Baso # (Auto) 0.1 WBC Differential . Diff Scan Auto diff confirmed Differential Comment . Platelet Estimate Normal Platelet Morphology Normal RBC Morphology Normal ESR PT 10.0 INR 1.0 APTT 20.1 L Fibrinogen 389 H POC Sodium 141 POC Potassium 4.3 POC Chloride 104 POC BUN 25 H POC Creatinine 1.4 H POC Glucose 94 Total Creatine Kinase 102 Troponin I Less than 0.02 L Vitamin B12 TSH Free T4 Beta HCG, Quant 5 Urine Color Urine Clarity Urine pH Ur Specific [place] Urine Protein Urine Glucose (UA) Urine Ketones Urine Occult Blood Urine Nitrate Urine Bilirubin Urine Urobilinogen Ur Leukocyte Esterase Urine RBC Urine WBC Ur Squamous Epith Cells Urine Bacteria Micro UA Comment Ur Microscopic Review Urine Culture Comments Nasal Screen MRSA (PCR) Urine Opiates Screen Ur Barbiturates Screen Ur Amphetamines Screen U Benzodiazepines Scrn Urine Cocaine Screen U Cannabinoids Screen Blood Type Blood Type Recheck Antibody Screen 09/18/18 09/18/18 09/18/18 13:50 13:50 13:50 WBC RBC Hgb POC Hgb (Calc) Hct POC Hct MCV MCH MCHC RDW Plt Count MPV Prelim Diff (Auto) Neut % (Auto) Lymph % (Auto) [place] % (Auto) Eos % (Auto) Baso % (Auto) Neut # (Auto) Lymph # (Auto) [place] # (Auto) Eos # (Auto) Baso # (Auto) WBC Differential Diff Scan Differential Comment Platelet Estimate Platelet Morphology RBC Morphology ESR 18 PT INR APTT Fibrinogen POC Sodium POC Potassium POC Chloride POC BUN POC Creatinine POC Glucose Total Creatine Kinase Troponin I Vitamin B12 494 TSH 0.462 Free T4 0.94 Beta HCG, Quant Urine Color Urine Clarity Urine pH Ur Specific [place] Urine Protein Urine Glucose (UA) Urine Ketones Urine Occult Blood Urine Nitrate Urine Bilirubin Urine Urobilinogen Ur Leukocyte Esterase Urine RBC Urine WBC Ur Squamous Epith Cells Urine Bacteria Micro UA Comment Ur Microscopic Review Urine Culture Comments Nasal Screen MRSA (PCR) Urine Opiates Screen Ur Barbiturates Screen Ur Amphetamines Screen U Benzodiazepines Scrn Urine Cocaine Screen U Cannabinoids Screen Blood Type A Positive Blood Type Recheck Not needed Antibody Screen Negative 09/18/18 09/18/18 09/18/18 15:30 15:30 23:00 WBC RBC Hgb POC Hgb (Calc) Hct POC Hct MCV MCH MCHC RDW Plt Count MPV Prelim Diff (Auto) Neut % (Auto) Lymph % (Auto) [place] % (Auto) Eos % (Auto) Baso % (Auto) Neut # (Auto) Lymph # (Auto) [place] # (Auto) Eos # (Auto) Baso # (Auto) WBC Differential Diff Scan Differential Comment Platelet Estimate Platelet Morphology RBC Morphology ESR PT INR APTT Fibrinogen POC Sodium POC Potassium POC Chloride POC BUN POC Creatinine POC Glucose Total Creatine Kinase Troponin I Vitamin B12 TSH Free T4 Beta HCG, Quant Urine Color Yellow Urine Clarity Hazy H Urine pH 6.0 Ur Specific [place] 1.020 Urine Protein 500 or greater Urine Glucose (UA) Negative Urine Ketones Negative Urine Occult Blood Negative Urine Nitrate Negative Urine Bilirubin Negative Urine Urobilinogen Less than 2 Ur Leukocyte Esterase Trace H Urine RBC 2 Urine WBC 7 H Ur Squamous Epith Cells 2 Urine Bacteria Rare H Micro UA Comment Cath-culture ind Ur Microscopic Review Not Reportable Urine Culture Comments Cath-cult indicated Nasal Screen MRSA (PCR) Not detected Urine Opiates Screen Neg Ur Barbiturates Screen Neg Ur Amphetamines Screen Neg U Benzodiazepines Scrn Neg Urine Cocaine Screen Neg U Cannabinoids Screen Neg Blood Type Blood Type Recheck Antibody Screen 09/19/18 09/19/18 00:03 06:49 WBC RBC Hgb POC Hgb (Calc) Hct POC Hct MCV MCH MCHC RDW Plt Count MPV Prelim Diff (Auto) Neut % (Auto) Lymph % (Auto) [place] % (Auto) Eos % (Auto) Baso % (Auto) Neut # (Auto) Lymph # (Auto) [place] # (Auto) Eos # (Auto) Baso # (Auto) WBC Differential Diff Scan Differential Comment Platelet Estimate Platelet Morphology RBC Morphology ESR PT INR APTT Fibrinogen POC Sodium POC Potassium POC Chloride POC BUN POC Creatinine POC Glucose 128 H 141 H Total Creatine Kinase Troponin I Vitamin B12 TSH Free T4 Beta HCG, Quant Urine Color Urine Clarity Urine pH Ur Specific [place] Urine Protein Urine Glucose (UA) Urine Ketones Urine Occult Blood Urine Nitrate Urine Bilirubin Urine Urobilinogen Ur Leukocyte Esterase Urine RBC Urine WBC Ur Squamous Epith Cells Urine Bacteria Micro UA Comment Ur Microscopic Review Urine Culture Comments Nasal Screen MRSA (PCR) Urine Opiates Screen Ur Barbiturates Screen Ur Amphetamines Screen U Benzodiazepines Scrn Urine Cocaine Screen U Cannabinoids Screen Blood Type Blood Type Recheck Antibody Screen Review/Management - Review/Management Plan: imp no cva on mri ldl nl r ica old occlusion plan is plavix start 75 at 24 hours post tpa and fu echo and holter and ok to dc if echo neg oob ok
[2018-09-19] MEDS: Senna/Docusate Sodium 8.6/50 MG Tablet PO SCH ×3 (09:27→20:41)
[2018-09-19] MEDS: Famotidine PF Inj 20 MG/2 ML Vial IV.PUSH SCH ×2 (09:27→20:14)
--- NOTE | 2018-09-19 09:51 | P.PNCC ---
Subjective Subjective Remarks/Hospital Course: This 78-year-old right-handed woman developed sudden speech difficulty earlier today and when attempting to walk she was unsteady. Her family recognized stroke symptomatology and brought her straight to the emergency department where she was found to be dysarthric, unsteady, and weak in the right arm. Blood pressure was controlled with nicardipine and she received TPA after consultation with the neurologist. I have seen her initially on the floor following her arrival and her symptoms have largely resolved. She does sense that her words were abnormal initially despite appearing normal to others. Her history is significant for hypertension and diabetes. We will plan to hold her outpatient antihypertensives, amlodipine and clonidine, tonight and adjust the Cardene drip for better control. 09/19: MRI shows no acute injury. Chronically occluded distal right internal carotid artery observed. Cardiac echo without obvious cause for TIA/CVA. Mild mitral regurgitation, low normal EF, sinus mechanism. Neurology service would like to see her Holter monitor reading before discharge. - Diagnosis (1) Hypertensive urgency (2) Acute CVA (cerebrovascular accident) (3) Dysarthria Objective Vital Signs / I&O: Vital Signs 09/18/18 13:42 09/18/18 13:45 09/18/18 13:49 Temperature 98.2 F Pulse Rate 96 H Respiratory Rate 16 Blood Pressure 172/77 H Pulse Oximetry 99 96 96 09/18/18 14:13 09/18/18 14:26 09/18/18 14:41 Temperature Pulse Rate 84 73 78 Respiratory Rate 20 19 19 Blood Pressure 202/89 H 173/74 H 160/72 H Pulse Oximetry 100 110 H 100 09/18/18 14:56 09/18/18 15:05 09/18/18 15:11 Temperature Pulse Rate 75 84 78 Respiratory Rate 18 19 Blood Pressure 162/72 H 153/69 H 126/58 L Pulse Oximetry 98 99 99 09/18/18 15:15 09/18/18 15:20 09/18/18 15:34 Temperature Pulse Rate 80 73 104 H Respiratory Rate 17 20 17 Blood Pressure 142/71 H 154/79 H 128/57 L Pulse Oximetry 99 100 100 09/18/18 15:47 09/18/18 15:56 09/18/18 16:10 Temperature Pulse Rate 69 75 81 Respiratory Rate 20 19 Blood Pressure 174/106 H 206/83 H 154/69 H Pulse Oximetry 99 96 09/18/18 16:26 09/18/18 17:00 09/18/18 18:45 Temperature Pulse Rate 83 90 75 Respiratory Rate 20 20 21 Blood Pressure 150/72 H 146/77 H Pulse Oximetry 97 98 98 09/18/18 18:46 09/18/18 19:00 09/18/18 19:01 Temperature 97.9 F Pulse Rate 72 71 71 Respiratory Rate 25 H 26 H 24 Blood Pressure 177/77 H 150/67 H Pulse Oximetry 98 98 99 09/18/18 19:16 09/18/18 19:31 09/18/18 19:44 Temperature Pulse Rate 73 73 Respiratory Rate 25 H 23 Blood Pressure 130/61 137/60 Pulse Oximetry 96 96 94 L 09/18/18 19:46 09/18/18 20:00 09/18/18 20:01 Temperature 98.1 F Pulse Rate 73 76 76 Respiratory Rate 48 H 39 H 30 H Blood Pressure 138/65 149/70 H Pulse Oximetry 95 95 93 L 09/18/18 20:16 09/18/18 20:31 09/18/18 20:46 Temperature Pulse Rate 74 75 77 Respiratory Rate 30 H 20 19 Blood Pressure 132/63 116/58 L 113/58 L Pulse Oximetry 95 93 L 94 L 09/18/18 21:00 09/18/18 21:01 09/18/18 21:16 Temperature Pulse Rate 77 78 77 Respiratory Rate 23 25 H 25 H Blood Pressure 128/60 131/61 Pulse Oximetry 93 L 93 L 94 L 09/18/18 21:31 09/18/18 21:46 09/18/18 22:00 Temperature Pulse Rate 76 77 76 Respiratory Rate 21 29 H 20 Blood Pressure 120/58 L 122/60 Pulse Oximetry 94 L 95 94 L 09/18/18 22:01 09/18/18 22:16 09/18/18 22:31 Temperature Pulse Rate 76 78 72 Respiratory Rate 21 45 H 30 H Blood Pressure 119/56 L 136/60 111/56 L Pulse Oximetry 94 L 96 95 09/18/18 22:46 09/18/18 23:00 09/18/18 23:01 Temperature Pulse Rate 70 73 71 Respiratory Rate 18 24 20 Blood Pressure 105/52 L 116/53 L Pulse Oximetry 95 92 L 93 L 09/18/18 23:16 09/18/18 23:31 09/18/18 23:46 Temperature Pulse Rate 76 72 75 Respiratory Rate 56 H 20 24 Blood Pressure 127/65 115/58 L 112/55 L Pulse Oximetry 98 95 94 L 09/19/18 00:00 09/19/18 00:01 09/19/18 00:16 Temperature 97.9 F Pulse Rate 74 73 81 Respiratory Rate 25 H 24 29 H Blood Pressure 120/59 L 120/59 L 123/60 Pulse Oximetry 95 96 95 09/19/18 00:31 09/19/18 00:46 09/19/18 01:00 Temperature Pulse Rate 75 66 71 Respiratory Rate 43 H 20 28 H Blood Pressure 111/56 L 108/55 L Pulse Oximetry 95 98 97 09/19/18 01:01 09/19/18 01:16 09/19/18 01:31 Temperature Pulse Rate 69 72 69 Respiratory Rate 21 19 18 Blood Pressure 126/57 L 111/54 L 110/55 L Pulse Oximetry 97 95 93 L 09/19/18 01:46 09/19/18 02:00 09/19/18 02:01 Temperature Pulse Rate 72 69 69 Respiratory Rate 21 21 20 Blood Pressure 127/63 128/61 Pulse Oximetry 94 L 92 L 92 L 09/19/18 02:16 09/19/18 02:31 09/19/18 02:46 Temperature Pulse Rate 69 70 76 Respiratory Rate 20 19 31 H Blood Pressure 113/58 L 120/56 L 137/62 Pulse Oximetry 92 L 90 L 97 09/19/18 03:00 09/19/18 03:01 09/19/18 03:16 Temperature Pulse Rate 73 73 74 Respiratory Rate 26 H 29 H 38 H Blood Pressure 124/58 L 128/60 Pulse Oximetry 98 98 98 09/19/18 03:31 09/19/18 03:32 09/19/18 03:46 Temperature Pulse Rate 75 75 75 Respiratory Rate 37 H 30 H 20 Blood Pressure 151/65 H 154/60 H 133/58 L Pulse Oximetry 99 98 97 09/19/18 04:00 09/19/18 04:01 09/19/18 04:16 Temperature 98 F Pulse Rate 76 75 78 Respiratory Rate 20 19 30 H Blood Pressure 131/62 136/61 Pulse Oximetry 94 L 94 L 96 09/19/18 04:31 11/02/18 04:46 09/19/18 05:00 Temperature Pulse Rate 75 76 77 Respiratory Rate 20 25 H 19 Blood Pressure 128/62 131/62 Pulse Oximetry 90 L 95 95 09/19/18 05:01 09/19/18 05:16 09/19/18 05:31 Temperature Pulse Rate 78 79 78 Respiratory Rate 25 H 22 38 H Blood Pressure 123/58 L 128/62 128/61 Pulse Oximetry 96 95 97 09/19/18 05:46 09/19/18 06:00 09/19/18 06:01 Temperature Pulse Rate 77 82 81 Respiratory Rate 23 29 H 32 H Blood Pressure 124/58 L 132/62 Pulse Oximetry 95 96 96 09/19/18 06:16 09/19/18 06:31 Temperature Pulse Rate 80 81 Respiratory Rate 29 H 42 H Blood Pressure 132/63 136/56 L Pulse Oximetry 95 97 Intake & Output 09/18/18 09/19/18 09/19/18 18:59 06:59 18:59 Intake Total 61.5 / 61.5 1999 Output Total 500 / 500 Balance 61.5 / 61.5 1500 / 1500 Weight 76.2 kg 78.7 kg Intake: IV 61.5 / 61.5 1999 NS Inj 1,000 ML @ 70 mls/hr IV. 1000 / 1000 CONT .[id number] [facility] Rx#:[id number] Cardene Inj 25 MG In NS Inj 240 1000 / 1000 ML @ 5 MG/HR 50 mls/hr IV.CONT TITRATE PRN Rx#:[id number] Activase Drip 61.5 MG In Bag/ 61.5 / 61.5 Syringe 1 EACH @ 61.5 mls/hr IV .SIG ONCE ONE Rx#:[id number] Output: Urine 500 / 500 Other: # Voids 1 2 Weight On Admission 76.2 kg Result Diagrams: 09/18/18 13:50 Objective Remarks: Narrative: General: Calm, alert Head: Atraumatic, normal Neck: Supple, airway widely patent, no obstructive sounds Lungs: Clear bilaterally, no wheezes or crackles, comfortable respiratory pattern Heart: Normal S1-S2, regular rate and rhythm, 3/6 systolic murmur RSB, no JVD Abdomen: Soft, nondistended, nontender, no guarding, bowel sounds active Extremities: Warm, well-perfused, no peripheral edema Neuro: Pupils are equal and react to light. Extraocular movements are intact. She moves 4 extremities to command and spontaneously. Oriented x3, conversant, speech and medical receptionist intact. Assessment and Plan - Problem List (1) Hypertensive urgency Code(s): I16.0 - Hypertensive urgency Status: Acute (2) Acute CVA (cerebrovascular accident) Code(s): I63.9 - Cerebral infarction, unspecified Status: Acute (3) Dysarthria Code(s): R47.1 - Dysarthria and anarthria Status: Acute - Assessment and Plan Plan: Plan: 1. Maintain blood pressure control with nicardipine, convert to amlodipine and clonidine. 2. Restart amlodipine and clonidine 3. Repeat head CT today 24 hours after TPA 4. Lipid profile 5. Cardiac echo 6. Post TPA order set protocol 7. Pepcid for GI ulcer prophylaxis 8. No chemical DVT prophylaxis due to risk of bleed 9. Serial neurologic exams 10. Maintenance IV isotonic crystalloid 11. Swallow eval, cardiac diet. 12. Transfer to floor 13. Start Plavix 75 mg daily at 1700 today (24 hours after TPA) per Neurology Service Overall impression: Patient arrived critically ill with acute ischemic cerebrovascular accident including dysarthria and right extremity weakness. She required nicardipine for control of hypertensive urgency and subsequently received TPA. She had a good response with return of speech and right-sided strength. MRI is significant for chronically occluded distal right internal carotid artery. Cardiac echo is largely benign. Holter monitor is in progress.
[2018-09-19] MEDS: amLODIPine 10 MG Tablet PO SCH (10:10)
[2018-09-19] MEDS: Dexmedetomidine Inj 200 MCG in Sodium Chlor 0.9% Inj 48 ML IV.CONT PRN ×2 (15:00→19:40)
--- NOTE | 2018-09-19 15:37 | CT ---
EXAM DATE: 09/19/2018 3:31 PM EDT AGE/SEX: 78 years / Female INDICATIONS: Status post TPA. CLINICAL DATA: This is the patient's initial encounter. Patient reports that signs and symptoms have been present for 2 days and indicates a pain score of Nonresponsive. MEDICAL/SURGICAL HISTORY: Hypertension. Cerebrovascular disease. Renal disease. None. RADIATION DOSE: 31.30 CTDI (mGy) COM[place]: [facility] [place] & W/O [place]AST, 09/18/2018. [facility] [place]/O CONTRAST, 09/18/2018. . TECHNIQUE: CT of the head without contrast. Using automated exposure control and adjustment of the mA and/or kV according to patient size, radiation dose was kept as low as reasonably achievable to ob tain optimal diagnostic quality images. DICOM format image data is available electronically for revi ew and comparison. FINDINGS: Examination quality is degraded by motion artifact. Cerebrum: There is mild generalized atrophy and ventricles are normal given the degree of atrophy. M oderate periventricular white matter change is present. No midline shift, mass lesion, hemorrhage or acute infarction. No extraaxial fluid collections are seen. Posterior Fossa: The cerebellum and brainstem demonstrate no acute abnormality. The 4th ventricle is midline. The cerebellopontine angle is within normal limits. Extracranial: The visualized sinuses are clear. Skull: The calvaria is intact. No skull fracture. CONCLUSION: 1. Examination quality is degraded by motion artifact. No hemorrhage is identified. 2. Chronic findings include mild generalized atrophy and moderate periventricular white matter walker eTariq . Electronically signed by: Decaln Zhang MD 09/19/2018 3:35 PM EDT
--- NOTE | 2018-09-19 20:22 | ECG ---
Date Performed: 09/18/2018 Time Performed: 15:56:37 PTAGE: 78 years EKG: Sinus rhythm WITH SHORT CT INTERVAL MINIMAL VOLTAGE CRITERIA FOR LVH, CONSIDER NORMAL VARIANT NONSPECIFIC T-WAVE ABNORMALITY BORDERLINE ECG PREVIOUS TRACING : 04/11/2010 11.03 Compared to previous tracing, ST abnormalities are new Clin ical correlation is recommended DOCTOR: Jhonny Root Interpretating Date/Time 09/19/2018 20:21:00
[2018-09-19 22:43] LABS: Calcium 8.2 mg/dL (8.5-10.1); Carbon Dioxide 25.4 meq/L (21.0-32.0); Potassium 3.8 meq/L (3.5-5.1)
[2018-09-19 22:45] LABS: Chol/HDL Ratio 6.24 Ratio; HDL Cholesterol 29.3 mg/dL (40.0-60.0)
[2018-09-20] MEDS: Insulin NovoLOG Aspart Correctional Sugar Inj SQ SCH ×4 (00:56→19:07)
[2018-09-20] MEDS: Chlorhexidine Gluconate 2% 1 Pack (2 Cloths) TOPICAL SCH (03:19)
[2018-09-20] MEDS: Sod Chloride 0.9% Inj 1,000 ML IV.CONT SCH (07:58)
[2018-09-20] MEDS: Famotidine PF Inj 20 MG/2 ML Vial IV.PUSH SCH ×2 (08:00→22:35)
[2018-09-20] MEDS: amLODIPine 10 MG Tablet PO SCH (08:00)
[2018-09-20] MEDS: Senna/Docusate Sodium 8.6/50 MG Tablet PO SCH ×2 (08:00→21:59)
[2018-09-20] MEDS: hydrALAZINE 50 MG Tablet PO PRN ×2 (10:06→15:46)
[2018-09-20] MEDS: hydrALAZINE HCl Inj 20 MG/ML Vial IV.PUSH PRN (12:33)
--- NOTE | 2018-09-20 14:49 | P.PNCC ---
Subjective Subjective Remarks/Hospital Course: This 78-year-old right-handed woman developed sudden speech difficulty earlier today and when attempting to walk she was unsteady. Her family recognized stroke symptomatology and brought her straight to the emergency department where she was found to be dysarthric, unsteady, and weak in the right arm. Blood pressure was controlled with nicardipine and she received TPA after consultation with the neurologist. I have seen her initially on the floor following her arrival and her symptoms have largely resolved. She does sense that her words were abnormal initially despite appearing normal to others. Her history is significant for hypertension and diabetes. We will plan to hold her outpatient antihypertensives, amlodipine and clonidine, tonight and adjust the Cardene drip for better control. 09/19: MRI shows no acute injury. Chronically occluded distal right internal carotid artery observed. Cardiac echo without obvious cause for TIA/CVA. Mild mitral regurgitation, low normal EF, sinus mechanism. Neurology service would like to see her Holter monitor reading before discharge. 09/20: Patient is developed severe agitated delirium and requiring four-point restraints and Precedex infusion. History from family indicates early Alzheimer 's disease and dementia as a chronic problem. We will need to keep her in the ICU for management. She is without a doubt a risk to herself and others. - Diagnosis (1) Hypertensive urgency (2) Acute CVA (cerebrovascular accident) (3) Dysarthria Objective Vital Signs / I&O: Vital Signs 09/19/18 15:00 09/19/18 16:00 09/19/18 16:30 Temperature 98.0 F Pulse Rate 75 60 57 L Respiratory Rate 21 24 118 H Blood Pressure 125/66 137/65 132/61 Pulse Oximetry 93 L 94 L 93 L 09/19/18 16:45 09/19/18 17:00 09/19/18 17:15 Temperature Pulse Rate 57 L 58 L 58 L Respiratory Rate 112 H 128 H 115 H Blood Pressure 128/61 121/58 L 126/61 Pulse Oximetry 92 L 92 L 92 L 09/19/18 17:30 09/19/18 17:45 09/19/18 18:00 Temperature Pulse Rate 58 L 57 L 57 L Respiratory Rate 105 H 100 H 86 H Blood Pressure 126/62 127/60 128/55 L Pulse Oximetry 92 L 96 98 09/19/18 19:00 09/19/18 20:00 09/19/18 21:00 Temperature 97.9 F Pulse Rate 56 L 55 L 58 L Respiratory Rate 77 H 126 H 57 H Blood Pressure 140/65 143/65 H 138/63 Pulse Oximetry 92 L 94 L 95 09/19/18 21:36 09/19/18 22:00 09/19/18 23:00 Temperature Pulse Rate 54 L 55 L Respiratory Rate 75 H 66 H Blood Pressure 141/65 H 144/67 H Pulse Oximetry 94 L 95 94 L 09/20/18 00:00 09/20/18 01:00 09/20/18 02:00 Temperature 98.1 F Pulse Rate 55 L 55 L 56 L Respiratory Rate 75 H 84 H 66 H Blood Pressure 144/66 H 140/65 139/64 Pulse Oximetry 95 96 96 09/20/18 03:00 09/20/18 04:00 09/20/18 05:00 Temperature 98 F Pulse Rate 56 L 60 61 Respiratory Rate 74 H 77 H 88 H Blood Pressure 148/68 H 143/67 H 152/67 H Pulse Oximetry 96 97 97 09/20/18 06:00 09/20/18 07:00 09/20/18 07:59 Temperature Pulse Rate 72 90 Respiratory Rate 87 H 20 Blood Pressure 162/74 H 179/77 H Pulse Oximetry 99 97 09/20/18 08:00 09/20/18 08:04 09/20/18 09:00 Temperature 98.3 F Pulse Rate 75 74 81 Respiratory Rate 18 75 H Blood Pressure 172/76 H 178/84 H Pulse Oximetry 94 L 94 L 96 09/20/18 10:00 09/20/18 11:00 Temperature Pulse Rate 93 H 88 Respiratory Rate 22 24 Blood Pressure 152/68 H 172/78 H Pulse Oximetry 98 93 L Intake & Output 09/19/18 09/20/18 09/20/18 18:59 06:59 18:59 Intake Total 480 / 480 50 / 50 Output Total 300 / 300 Balance 180 / 180 50 / 50 Weight 78 kg Intake: IV 50 / 50 Precedex Inj 200 MCG In NS Inj 50 / 50 48 ML @ 0.2 MCG/KG/HR 3.93 mls/ hr IV.CONT TITRATE PRN Rx#: [id number] Oral 480 / 480 Output: Urine 300 / 300 Other: # Incontinent Voids 3 Result Diagrams: 09/18/18 13:50 09/19/18 21:59 Objective Remarks: Narrative: General: Agitated, confused Head: Atraumatic, normal Neck: Supple, airway widely patent, no obstructive sounds Lungs: Clear bilaterally, no wheezes or crackles, comfortable respiratory pattern Heart: Normal S1-S2, regular rate and rhythm, 3/6 systolic murmur RSB, no JVD Abdomen: Soft, nondistended, nontender, no guarding, bowel sounds active Extremities: Warm, well-perfused, no peripheral edema Neuro: Pupils are equal and react to light. Extraocular movements are intact. She moves 4 extremities to command and spontaneously. This oriented x3, speech clear. Very agitated moving all 4 extremities with 5/5 strength Assessment and Plan - Problem List (1) Hypertensive urgency Code(s): I16.0 - Hypertensive urgency Status: Acute (2) Acute CVA (cerebrovascular accident) Code(s): I63.9 - Cerebral infarction, unspecified Status: Acute (3) Dysarthria Code(s): R47.1 - Dysarthria and anarthria Status: Acute - Assessment and Plan Plan: Plan: 1. Maintain blood pressure control with nicardipine, convert to amlodipine and clonidine. 2. Restart amlodipine and clonidine 3. Repeat head CT today 24 hours after TPA 4. Lipid profile 5. Cardiac echo 6. Post TPA order set protocol 7. Pepcid for GI ulcer prophylaxis 8. No chemical DVT prophylaxis due to risk of bleed 9. Serial neurologic exams 10. Maintenance IV isotonic crystalloid 11. Swallow eval, cardiac diet. 12. Transfer to floor 13. Start Plavix 75 mg daily at 1700 today (24 hours after TPA) per Neurology Service 14: Overall impression: Patient arrived critically ill with acute ischemic cerebrovascular accident including dysarthria and right extremity weakness. She required nicardipine for control of hypertensive urgency and subsequently received TPA. She had a good response with return of speech and right-sided strength. MRI is significant for chronically occluded distal right internal carotid artery. Cardiac echo is largely benign. Holter monitor is in progress. Her agitated state is requiring sedation protocol for management. She is critically ill at this time and a danger to herself and others. Critical care 32 minutes
[2018-09-20] MEDS: Labetalol HCl Inj 100 MG/20 ML Vial IV.PUSH PRN (16:39)
[2018-09-20] MEDS: Dexmedetomidine Inj 200 MCG in Sodium Chlor 0.9% Inj 48 ML IV.CONT PRN (20:36)
[2018-09-21] MEDS: Insulin NovoLOG Aspart Correctional Sugar Inj SQ SCH ×4 (00:55→18:06)
[2018-09-21] MEDS: Sod Chloride 0.9% Inj 1,000 ML IV.CONT SCH ×3 (02:36→17:40)
[2018-09-21] MEDS: Chlorhexidine Gluconate 2% 1 Pack (2 Cloths) TOPICAL SCH (04:14)
[2018-09-21] MEDS: hydrALAZINE HCl Inj 20 MG/ML Vial IV.PUSH PRN ×2 (04:38→10:37)
--- NOTE | 2018-09-21 08:17 | P.PNCC ---
Subjective Subjective Remarks/Hospital Course: This 78-year-old right-handed woman developed sudden speech difficulty earlier today and when attempting to walk she was unsteady. Her family recognized stroke symptomatology and brought her straight to the emergency department where she was found to be dysarthric, unsteady, and weak in the right arm. Blood pressure was controlled with nicardipine and she received TPA after consultation with the neurologist. I have seen her initially on the floor following her arrival and her symptoms have largely resolved. She does sense that her words were abnormal initially despite appearing normal to others. Her history is significant for hypertension and diabetes. We will plan to hold her outpatient antihypertensives, amlodipine and clonidine, tonight and adjust the Cardene drip for better control. 09/19: MRI shows no acute injury. Chronically occluded distal right internal carotid artery observed. Cardiac echo without obvious cause for TIA/CVA. Mild mitral regurgitation, low normal EF, sinus mechanism. Neurology service would like to see her Holter monitor reading before discharge. 09/20: Patient is developed severe agitated delirium and requiring four-point restraints and Precedex infusion. History from family indicates early Alzheimer 's disease and dementia as a chronic problem. We will need to keep her in the ICU for management. She is without a doubt a risk to herself and others. 09/21: Calm and cooperative this morning. Agitated confusion has passed. Neurological exam grossly normal and non-focal. - Diagnosis (1) Hypertensive urgency (2) Acute CVA (cerebrovascular accident) (3) Dysarthria Objective Vital Signs / I&O: Vital Signs 09/20/18 10:00 09/20/18 11:00 09/20/18 12:21 Temperature 98.2 F Pulse Rate 93 H 88 86 Respiratory Rate 22 24 20 Blood Pressure 152/68 H 172/78 H 197/81 H Pulse Oximetry 98 93 L 94 L 09/20/18 13:00 09/20/18 14:00 09/20/18 15:00 Temperature Pulse Rate 83 114 H 118 H Respiratory Rate 20 20 22 Blood Pressure 186/82 H 214/77 H 198/105 H Pulse Oximetry 95 99 94 L 09/20/18 16:43 09/20/18 17:33 09/20/18 18:13 Temperature 98.4 F Pulse Rate 86 94 H 78 Respiratory Rate 22 22 20 Blood Pressure 162/77 H 163/84 H 159/75 H Pulse Oximetry 94 L 92 L 99 09/20/18 19:00 09/20/18 19:50 09/20/18 20:00 Temperature 97.7 F Pulse Rate 74 70 Respiratory Rate 20 16 Blood Pressure 157/70 H 143/66 H Pulse Oximetry 98 93 L 96 09/20/18 21:00 09/20/18 22:00 09/20/18 23:00 Temperature Pulse Rate 62 58 L 56 L Respiratory Rate 20 18 16 Blood Pressure 151/70 H 152/68 H 154/68 H Pulse Oximetry 96 98 100 09/21/18 00:00 09/21/18 01:54 EDT 09/21/18 01:55 EDT Temperature 97.7 F Pulse Rate 56 L 58 L 56 L Respiratory Rate 16 18 16 Blood Pressure 146/65 H 152/67 H 151/66 H Pulse Oximetry 98 98 98 09/21/18 03:00 09/21/18 04:00 09/21/18 05:00 Temperature 97.8 F Pulse Rate 62 66 60 Respiratory Rate 16 21 22 Blood Pressure 162/72 H 175/74 H 160/68 H Pulse Oximetry 99 100 100 09/21/18 06:00 Temperature Pulse Rate 64 Respiratory Rate 22 Blood Pressure 167/73 H Pulse Oximetry 100 Intake & Output 09/20/18 09/21/18 09/21/18 19:59 06:59 18:59 Intake Total Output Total Balance Weight Intake: IV Precedex Inj 200 MCG In NS Inj 48 ML @ 0.2 MCG/KG/HR 3.93 mls/ hr IV.CONT TITRATE PRN Rx#: [id number] NS Inj 1,000 ML @ 70 mls/hr IV. CONT .[id number] [facility] Rx#:[id number] Oral Output: Urine Other: # Incontinent Voids Result Diagrams: 09/18/18 13:50 09/19/18 21:59 Objective Remarks: Narrative: General: Head: Atraumatic, normal Neck: Supple, airway widely patent, no obstructive sounds Lungs: Clear bilaterally, no wheezes or crackles, comfortable respiratory pattern Heart: Normal S1-S2, regular rate and rhythm, 3/6 systolic murmur RSB, no JVD Abdomen: Soft, nondistended, nontender, no guarding, bowel sounds active Extremities: Warm, well-perfused, no peripheral edema Neuro: Pupils are equal and react to light. Extraocular movements are intact. She moves 4 extremities to command and spontaneously. She is oriented x3, speech clear. Moving all 4 extremities with 5/5 strength Assessment and Plan - Problem List (1) Hypertensive urgency Code(s): I16.0 - Hypertensive urgency Status: Acute (2) Acute CVA (cerebrovascular accident) Code(s): I63.9 - Cerebral infarction, unspecified Status: Acute (3) Encephalopathy acute Code(s): G93.40 - Encephalopathy, unspecified Status: Acute (4) Dysarthria Code(s): R47.1 - Dysarthria and anarthria Status: Acute - Assessment and Plan Plan: Plan: 1. Continue amlodipine and clonidine. 2. Transfer to floor 3. Repeat head 4. Lipid profile 5. Cardiac echo 6. Post TPA order set protocol 7. Pepcid for GI ulcer prophylaxis 8. No chemical DVT prophylaxis due to risk of bleed 9. Serial neurologic exams 10. Maintenance IV isotonic crystalloid 11. Swallow eval, cardiac diet. 12. Transfer to floor 13. Start Plavix 75 mg daily at 1700 today (24 hours after TPA) per Neurology Service 14: Overall impression: Patient arrived critically ill with acute ischemic cerebrovascular accident including dysarthria and right extremity weakness. She required nicardipine for control of hypertensive urgency and subsequently received TPA. She had a good response with return of speech and right-sided strength. MRI is significant for chronically occluded distal right internal carotid artery. Cardiac echo is largely benign. Holter monitor is in progress. Yesterday her agitated state was requiring sedation protocol for management and she was a danger to herself and others. This morning she if fine.
[2018-09-21] MEDS: Senna/Docusate Sodium 8.6/50 MG Tablet PO SCH ×2 (09:31→22:49)
[2018-09-21] MEDS: Famotidine PF Inj 20 MG/2 ML Vial IV.PUSH SCH ×2 (09:31→22:48)
[2018-09-21] MEDS: amLODIPine 10 MG Tablet PO SCH (09:31)
[2018-09-21] MEDS: Labetalol HCl Inj 100 MG/20 ML Vial IV.PUSH PRN (09:41)
[2018-09-22] MEDS: Insulin NovoLOG Aspart Correctional Sugar Inj SQ SCH ×5 (01:35→23:36)
[2018-09-22] MEDS: Chlorhexidine Gluconate 2% 1 Pack (2 Cloths) TOPICAL SCH (03:30)
[2018-09-22] MEDS: Sod Chloride 0.9% Inj 1,000 ML IV.CONT SCH ×2 (06:20→22:58)
--- NOTE | 2018-09-22 07:57 | P.PNNEU ---
Subjective Active Medications: Active Medications Al Hydroxide/Mg Hydroxide (Milk Of Khanh Liq) 30 ml PO Q12H PRN PRN Reason: Mild Constipation Albuterol (Duoneb Neb (Prn)) 1 ampul NEB Q2HR NEB PRN PRN Reason: WHEEZING Amlodipine Besylate (Norvasc) 10 mg PO DAILY [facility] Last Admin: 09/21/18 09:31 Dose: 10 mg Bisacodyl (Dulcolax Supp) 10 mg RECTAL DAILY PRN PRN Reason: SEVERE CONSITIPATION Chlorhexidine Gluconate (Chlorhexidine 2% Cloth) 3 pack TOPICAL DAILY@0400 [facility] Stop: 09/24/18 03:59 Last Admin: 09/22/18 03:30 Dose: Not Given Chlorhexidine Gluconate (Chlorhexidine 2% Cloth) 3 pack TOPICAL DAILY@0400 PRN PRN Reason: Extra cloth needed Stop: 09/24/18 03:59 Clonidine HCl (Catapres) 0.2 mg PO Q12HR [facility] Last Admin: 09/21/18 22:49 Dose: 0.2 mg Clonidine HCl (Catapres) 0.1 mg PO Q6H PRN PRN Reason: SBP > 170 Clopidogrel Bisulfate (Plavix) 75 mg PO Q24H [facility] Last Admin: 09/21/18 22:49 Dose: 75 mg Dextrose (D50w Vial) 50 ml IV.PUSH UNSCH PRN PRN Reason: PER HYPOGLYCEMIA PROTOCOL Famotidine (Pepcid Pf Inj) 10 mg IV.PUSH Q12HR [facility] Last Admin: 09/21/18 22:48 Dose: 10 mg Glucagon (Glucagon Inj) 1 mg OTHER PRN PRN PRN Reason: for Hypoglycemia Protocol Hydralazine HCl (Apresoline Inj) 10 mg IV.PUSH Q2H PRN PRN Reason: SBP > 170 Last Admin: 09/21/18 10:37 Dose: 10 mg Hydralazine HCl (Apresoline) 50 mg PO Q6H PRN PRN Reason: SBP > 170 Last Admin: 09/20/18 15:46 Dose: 50 mg Sodium Chloride (Ns Inj) 1,000 mls @ 70 mls/hr IV.CONT .[id number] [facility] Last Admin: 09/22/18 06:20 Dose: 70 mls/hr Nicardipine HCl 25 mg/ Sodium (Chloride) 250 mls @ 50 mls/hr IV.CONT TITRATE PRN; Protocol PRN Reason: Per Protocol Last Titration: 09/19/18 10:30 Dose: 0 mg/hr, 0 mls/hr Insulin Aspart (Novolog Insulin Correctional Sugar Inj) 0 unit SQ Q6HR [facility]; Protocol Last Admin: 09/22/18 06:20 Dose: Not Given Labetalol HCl (Trandate Inj) 20 mg IV.PUSH Q2H PRN PRN Reason: SBP > 180 Last Admin: 09/21/18 09:41 Dose: 20 mg Lactulose (Lactulose Liq) 30 ml PO DAILY PRN PRN Reason: SEVERE CONSITIPATION Lorazepam (Ativan Inj) 1 mg IV.PUSH Q15M PRN PRN Reason: SEVERE AGITATION Last Admin: 09/20/18 15:46 Dose: 1 mg Morphine Sulfate (Morphine Inj) 2 mg IV.PUSH Q2H PRN PRN Reason: PAIN SCALE 6 TO 10 Senna/Docusate Sodium (Camila-Colace) 1 tab PO BID [facility] Last Admin: 09/21/18 22:49 Dose: 1 tab Sennosides (Senokot) 17.2 mg PO Q12H PRN PRN Reason: Moderate Constipation Sodium Chloride (Ns Flush) 2 ml IV.FLUSH BID [facility] Last Admin: 09/21/18 22:49 Dose: 2 ml Sodium Chloride (Ns Flush) 2 ml IV.FLUSH PRN PRN PRN Reason: FLUSH AFTER USING IV ACCESS Allergies/Adverse Reactions: Allergies Allergy/AdvReac Type Severity Reaction Status Date / Time ampicillin Allergy Intermediate DIARRHEA Verified 09/18/18 23:08 Physical Exam Vital signs: Vital Signs 09/21/18 08:00 09/21/18 09:00 09/21/18 10:00 Temperature 98.2 F Pulse Rate 64 69 68 Respiratory Rate 26 H 30 H 26 H Blood Pressure 170/72 H 175/82 H 179/74 H Pulse Oximetry 100 97 100 09/21/18 11:00 09/21/18 12:00 09/21/18 13:00 Temperature 98.7 F Pulse Rate 76 74 79 Respiratory Rate 26 H 22 26 H Blood Pressure 120/74 182/75 H 129/84 Pulse Oximetry 98 94 L 98 09/21/18 14:00 09/21/18 15:02 09/21/18 16:00 Temperature 98.8 F Pulse Rate 82 91 H 73 Respiratory Rate 26 H 18 27 H Blood Pressure 170/95 H 176/81 H 157/70 H Pulse Oximetry 95 98 98 09/21/18 17:00 09/21/18 18:00 09/21/18 19:00 Temperature 98.7 F Pulse Rate 71 81 Respiratory Rate 24 20 Blood Pressure 167/74 H 161/70 H 168/75 H Pulse Oximetry 97 98 09/21/18 20:00 09/22/18 00:00 09/22/18 04:00 Temperature 98.8 F 98.4 F Pulse Rate 74 80 Respiratory Rate 20 18 Blood Pressure 166/74 H 158/75 H Pulse Oximetry 97 96 98 Intake & Output 09/21/18 09/22/18 09/22/18 18:59 06:59 18:59 Intake Total 1480 / 1480 1360 / 1360 Balance 1480 / 1480 1360 / 1360 Weight 76.4 kg Intake: IV 1000 / 1000 1000 / 1000 NS Inj 1,000 ML @ 70 mls/hr IV. 1000 / 1000 1000 / 1000 CONT .[id number] [facility] Rx#:[id number] Oral 480 / 480 360 / 360 Other: # Incontinent Voids 3 4 Narrative: awake vff moves all well a little groggy not yr or month and cannot remember mo but does yr at 2 min hint left droop Objective Laboratory Results - last 24 hr 09/21/18 09/21/18 09/22/18 12:25 18:02 01:32 POC Glucose 117 H 145 H 132 H 09/22/18 09/22/18 06:03 07:24 POC Glucose 132 H 140 H Review/Management - Review/Management Plan: imp no cva on mri ldl nl r ica old occlusion plan is plavix start 75 at 24 hours post tpa and fu echo and holter and ok to dc if echo neg oob ok 09/22/18 echo nl hollter pend ldl nl r ica occ old on plavix check mri repeat for any cva if neg can dc to rehab today oob chair ambulate fu office for dementia
[2018-09-22] MEDS: Senna/Docusate Sodium 8.6/50 MG Tablet PO SCH ×2 (09:20→23:00)
[2018-09-22] MEDS: Famotidine PF Inj 20 MG/2 ML Vial IV.PUSH SCH (09:21)
[2018-09-22] MEDS: amLODIPine 10 MG Tablet PO SCH (09:21)
--- NOTE | 2018-09-22 11:13 | MR ---
EXAM DATE: 09/22/2018 11:00 AM EST AGE/SEX: 78 years / Female INDICATIONS: CVA. Lower extremity weakness. CLINICAL DATA: This is the patient's initial encounter. Patient reports that signs and symptoms have been present for 2 days and indicates a pain score of 0/10. MEDICAL/SURGICAL HISTORY: . Hysterectomy. Facial surgery. COMPARISON: [facility] [place], MR HEAD W & W/O CONTRAST, 09/18/2018. . TECHNIQUE: Multiplanar, multisequence examination of the brain was performed without contrast. FINDINGS: Cerebrum: The ventricles are normal for age. A few areas of focal increased T2 signal abnormality se en within the cortex of the parietal lobes bilaterally. No evidence of midline shift, mass lesion, he morrhage. No extraaxial fluid collections are seen. The pituitary gland and suprasellar cistern are normal in configuration. White Matter: Scattered areas of high FLAIR signal abnormalities are seen in the white matter. Posterior Fossa: The cerebellum and brainstem are intact. The 4th ventricle is midline. The cerebel lopontine angle is unremarkable. The cerebellar tonsils are normal in position. Diffusion Imaging: No focal areas of restricted diffusion are seen. No evidence of acute infarction . Extracranial: The visualized portions of the orbits and paranasal sinuses are unremarkable. CONCLUSION: 1. Focal areas of restricted diffusion along the parietal cortices could be tiny lacunar infarcts. 2. Chronic ischemic small vessel vasculopathy. Electronically signed by: Freddy Gómez MD 09/22/2018 11:11 AM EST
--- NOTE | 2018-09-22 13:16 | P.PN ---
Subjective Interval history: 78 years old right handed female , some baselinedementia admitted 09/18 under [facility] service for CVA now awkeanad padminirrt, very feisty, ax ox x 3, no wekaness speehc clear denies any pain seen with suportive at bedside complains of right foot pain when standing- unable to bear weight on this- mild swelling per patient since saturday not seen by PT yet Physical Exam Vital signs: Vital Signs 09/21/18 14:00 09/21/18 15:02 09/21/18 16:00 Temperature 98.8 F Pulse Rate 82 91 H 73 Respiratory Rate 26 H 18 27 H Blood Pressure 170/95 H 176/81 H 157/70 H Pulse Oximetry 95 98 98 09/21/18 17:00 09/21/18 18:00 09/21/18 19:00 Temperature 98.7 F Pulse Rate 71 81 Respiratory Rate 24 20 Blood Pressure 167/74 H 161/70 H 168/75 H Pulse Oximetry 97 98 09/21/18 20:00 09/22/18 00:00 09/22/18 04:00 Temperature 98.8 F 98.4 F Pulse Rate 74 80 Respiratory Rate 20 18 Blood Pressure 166/74 H 158/75 H Pulse Oximetry 97 96 98 09/22/18 08:00 Temperature 98 F Pulse Rate 66 Respiratory Rate 16 Blood Pressure 177/76 H Pulse Oximetry 96 Intake & Output 09/21/18 09/22/18 09/22/18 18:59 06:59 18:59 Intake Total 1480 / 1480 1360 / 1360 Balance 1480 / 1480 1360 / 1360 Weight 76.4 kg Intake: IV 1000 / 1000 1000 / 1000 NS Inj 1,000 ML @ 70 mls/hr IV. 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 Focal areas of restricted diffusion along the parietal cortices could be tiny lacunar infarcts. 2. Chronic ischemic small vessel vasculopathy. Assessment and Plan - Plan (1) Hypertensive urgency Code(s): I16.0 - Hypertensive urgency Status: Acute (2) Acute CVA (cerebrovascular accident) Code(s): I63.9 - Cerebral infarction, unspecified Status: Acute (3) Encephalopathy acute Code(s): G93.40 - Encephalopathy, unspecified Status: Acute (4) Dysarthria Code(s): R47.1 - Dysarthria and anarthria Status: Acute - Assessment and Plan Plan: 78 years sold right handed female CVA S/P TPA Hypertensive urgency - right ICA occlusion- old - MRI no CVA. LDL normal - speech clear, grossly no motor deficits- but pain on right foot with - Neurology ff - started on Plavix - continue on amlodipine 10 mg daily, clonidine 0.2 mg po bid - Echo carotid stiudies- negative - Holter in progress - get Pt/OT eval- has not been seen by rehab yet since admission - OP ff up with Dr. Delgado on DC and ff up for dementia - continue on home statin 20 mg hs - repeat MRI today DM type 2 on oral hypoglycemic- as OP on glipizide and Tradjenta - ff blood sugars - check A1C right foot pain- unable to bear weight - get Xrays- if negative - consider get CT or MRI and podiatry consult - PT eval CM consult for SNF- prefers [facility] oob chair ambulate- PT consult
[2018-09-22] MEDS: hydrALAZINE 25 MG Tablet PO SCH ×2 (14:10→17:25)
--- NOTE | 2018-09-22 15:57 | XR ---
EXAM DATE: 09/22/2018 2:59 PM EST AGE/SEX: 78 years / Female INDICATIONS: Left foot pain. CLINICAL DATA: This is the patient's initial encounter. Patient reports that signs and symptoms have been present for 3 days and indicates a pain score of 5/10. MEDICAL/SURGICAL HISTORY: None. None. COMPARISON: [facility], XR FOOT (MIN 3 VIEWS), LEFT, 09/25/2017. . FINDINGS: Bony structures are intact and in normal alignment. Osseous density is normal. Soft tissues are unre markable. No radiopaque foreign bodies seen. CONCLUSION: No evidence of acute bony abnormality or significant soft tissue swelling. Electronically signed by: Dylan Jacobo MD 09/22/2018 3:55 PM EST
--- NOTE | 2018-09-22 19:38 | MR ---
EXAM DATE: 09/22/2018 7:22 PM EST AGE/SEX: 78 years / Female INDICATIONS: . Planter surface foot pain by MTPJ. CLINICAL DATA: This is the patient's initial encounter. Patient reports that signs and symptoms have been present for 1 week and indicates a pain score of 8/10. MEDICAL/SURGICAL HISTORY: Diabetes mellitus type II. Hysterectomy. Facial sx. COMPARISON: No prior exams available for comparison. TECHNIQUE: Multiplanar, multisequence MRI examination was performed without contrast. FINDINGS: Soft tissues dorsal and lateral to the fifth metatarsophalangeal joint are focally ulcerated. There i s marrow edema and focal T1 signal abnormality involving the head and neck of the fifth metatarsal of concern for osteomyelitis in the proper clinical setting. No abscesses are demonstrated. Marrow edema with cortical: Indistinctness and mild patchy T1 signal abnormality involves the distal phalanx of the great toe and also the head of the proximal phalanx. No other evidence of osteomyeliti s. 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 Moderate size heel spur. There is mild to moderate thickening of the proximal and mid portions of the plantar fascia. There is moderate distal and insertional tendinosis of Achilles with enthesopathic c hanges. CONCLUSION: 1. Signal changes of the fifth metatarsal head and neck of concern for osteomyelitis. The adjacent s oft tissues are ulcerated dorsally and laterally. No abscess. 2. Questionable osteomyelitis of the great toe distal phalanx and head of the proximal phalanx. 3. No other evidence of osteomyelitis. 4. [id number] osteoarthritis of Lisfranc joint. 5. Moderate severity plantar fasciitis/fibromatosis. No tear. 6. Achilles tendinosis/enthesopathic changes without tear. Electronically signed by: Declan Tuttle MD 09/22/2018 7:37 PM EST
--- NOTE | 2018-09-22 21:52 | HM ---
Date Performed: 09/19/2018 Time Performed: 20:05:00 HOOKUP DATE: 09/19/18 08:05:00 PM Fri ANALYSIS START TIME: 09/19/2018 8:10:00 PM ANALYSIS END TIME: 09/20/2018 8:13:59 PM PATIENT AGE: 78 PATIENT HEIGHT PATIENT WEIGHT: 167 DRUG LIST: ROOM 1322 PATIENT DIAGNOSIS: ACUTE CVA WITH DYSARTHRIA TEST NARRATIVE: The patient's average heart rate was 77 BPM. Heart rates greater than 120 B PM were noted 5% of the time. No episodes of bradycardia were noted. No pauses exceeding 2.0 sec onds were noted. 317 ventricular ectopics, which represented < 1% of the total beat count, were n oted. The highest ventricular ectopic frequency occurred from 05:00 PM to 06:00 PM Sat. During this time 104 VE(s) occurred. Ventricular ectopics were observed as 307 isolated beat(s) and as 5 couple t(s). No runs were noted. 377 supraventricular ectopics, which represented < 1% of the total gilberto t count, were noted. The highest supraventricular ectopic frequency occurred from 03:00 PM to 04:00 PM Sat. During this time 62 SVE(s) occurred. Multiple episodes of ST depression (defined as -1.0 mm or more) were noted in channel 1. The maximum depression of -3.0 mm occurred at 09:47:07 AM Sat . Multiple episodes of ST depression (defined as -1.0 mm or more) were noted in channel 2. The max imum depression of -2.7 mm occurred at 02:08:18 PM Sat. Multiple episodes of ST depression (defined as -1.0 mm or more) were noted in channel 3. The maximum depression of -3.1 mm occurred at 02:46:17 PM Sat. PATIENT UNABLE TO MAINTAIN A DIARY TEST INTERPRETATION: Sinus rhythm Frequent PACs Frequent PVCs Multiple episodes of nonsustained atrial tachycardia Signed by : John Meeks
[2018-09-23] MEDS: Chlorhexidine Gluconate 2% 1 Pack (2 Cloths) TOPICAL SCH (03:09)
[2018-09-23] MEDS: Insulin NovoLOG Aspart Correctional Sugar Inj SQ SCH ×3 (06:45→17:56)
[2018-09-23] MEDS: Sod Chloride 0.9% Inj 1,000 ML IV.CONT SCH (09:37)
[2018-09-23] MEDS: amLODIPine 10 MG Tablet PO SCH (09:39)
[2018-09-23] MEDS: hydrALAZINE 25 MG Tablet PO SCH ×3 (09:39→17:56)
[2018-09-23] MEDS: Senna/Docusate Sodium 8.6/50 MG Tablet PO SCH ×2 (09:39→20:57)
--- NOTE | 2018-09-23 11:20 | P.PN ---
Subjective Interval history: Patient with CVA status post TPA, hypertensive urgency. Patient seen and examined. Patient states she feels well. She denies any acute medical complaints. She no longer has pain in her right foot. She denies any headache , dizziness, lightheadedness or vision changes. She denies any chest pain or shortness of breath. She denies any nausea, vomiting or abdominal pain. Physical Exam Vital signs: Vital Signs 09/22/18 12:00 09/22/18 16:00 09/22/18 20:00 Temperature 97.2 F L 98.2 F 97.8 F Pulse Rate 62 68 52 L Respiratory Rate 20 20 16 Blood Pressure 155/68 H 140/70 199/88 H Pulse Oximetry 97 97 96 09/22/18 21:00 09/23/18 00:00 09/23/18 02:45 Temperature 98.6 F 98.2 F Pulse Rate 61 63 Respiratory Rate 16 20 Blood Pressure 168/78 H 139/71 146/73 H Pulse Oximetry 97 96 09/23/18 04:00 09/23/18 08:00 Temperature 97.8 F 98 F Pulse Rate 65 60 Respiratory Rate 16 18 Blood Pressure 169/77 H 173/75 H Pulse Oximetry 97 97 Intake & Output 09/22/18 09/23/18 09/23/18 18:59 06:59 18:59 Intake Total 700 / 700 Balance 700 / 700 Intake: IV 100 / 100 NS Inj 1,000 ML @ 70 mls/hr IV. 100 / 100 CONT .[id number] [facility] Rx#:[id number] Oral 600 / 600 Other: # Voids 5 2 # Incontinent Voids 2 # Urine Diapers 1 # Incontinent Bowel Movements 3 Narrative: GENERAL: WDWN overweight elderly female patient, INAD. Awake and alert. SKIN: Warm and dry. +Chronic venous stasis changes noted BLEs. HEAD: Atraumatic. Normocephalic. EYES: Pupils equal and round. No scleral icterus. No injection or drainage. ENT: No nasal bleeding or discharge. Mucous membranes pink and moist. NECK: Trachea midline. CARDIOVASCULAR: Regular rate and rhythm. RESPIRATORY: No accessory muscle use. Clear to auscultation. Breath sounds equal bilaterally. GASTROINTESTINAL: Abdomen soft, non-tender, nondistended. +BS. MUSCULOSKELETAL: Extremities without clubbing, cyanosis, or edema. No obvious deformities. Right foot exam unremarkable. No areas of infection. No pain to palpation. No open sores. NEUROLOGICAL: Awake and alert. No obvious cranial nerve deficits. Motor grossly within normal limits. Able to move all extremities spontaneously. Normal speech. PSYCHIATRIC: Appropriate mood and affect; insight and judgment normal. Results - Labs CBC & Chem 7: 09/18/18 13:50 09/19/18 21:59 Laboratory Results - last 24 hr 09/19/18 09/22/18 09/22/18 21:59 12:02 16:34 POC Glucose 142 H [place] Screen Neg RPR Nonreactive 09/22/18 09/23/18 23:03 06:30 POC Glucose 166 H 141 H [place] Screen RPR - Imaging Impressions Foot MRI 09/22/18 00:00 CONCLUSION: 1. Signal changes of the fifth metatarsal head and neck of concern for osteomyelitis. The adjacent soft tissues are ulcerated dorsally and laterally. No abscess. 2. Questionable osteomyelitis of the great toe distal phalanx and head of the proximal phalanx. 3. No other evidence of osteomyelitis. 4. Sooc-br-oildxyyi osteoarthritis of Lisfranc joint. 5. Moderate severity plantar fasciitis/fibromatosis. No tear. 6. Achilles tendinosis/enthesopathic changes without tear. Foot X-Ray 09/22/18 13:49 CONCLUSION: No evidence of acute bony abnormality or significant soft tissue swelling. 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 LDL normal -Echo and carotid studies- negative -speech clear, grossly no motor deficits -Neurology ff. Repeat MRI shows focal areas of restricted diffusion along the parietal cortices could be tiny lacunar infarcts, chronic ischemic small vessel vasculopathy -started on Plavix 75mg daily, continue -Holter in progress -OP ff up with Dr. Delgado on DC and ff up for dementia -continue on home statin 20 mg hs Hypertensive urgency BP improved -Continue on hydralazine 25 mg 3 times daily, clonidine 0.2 mg twice daily, Norvasc 10 mg daily -Continue to monitor BP closely DM type 2 on oral hypoglycemic- as OP on glipizide and Tradjenta Blood sugars overall controlled -Continue on Accu-Cheks and insulin sliding scale right foot pain- unable to bear weight, now resolved?? - MRI right foot + signal changes in the fifth metatarsal head and neck concern for osteomyelitis, questionable osteomyelitis of great toe distal phalanx and head of the proximal phalanx -Consult infectious disease and podiatry, appreciate assistance DVT prophylaxis -bilateral SCD/ALCON hose Code Status: Full Discussed Condition With: patient, nursing staff, Dr. Carl Discharge Planning: Likely discharge in the next 24 hours. Discharge pending podiatry and neurology clearance.
--- NOTE | 2018-09-23 13:02 | P.CONID ---
History of Present Illness Service: Infectious disease Consult date: 09/23/18 Requesting Physician: Jasvir Carl Reason for Consult: Evaluate patient for possible osteo on toe on MRI Primary Care Provider: UNKNOWN Chief Complaint: Slurred speech, unsteady walking History of Present Illness: Patient seen and examined. Records reviewed. Patient is a 78-year-old female, brought into the hospital because she was noted to be having a sudden onset of difficulty speaking as well as unsteady gait. Evaluation in the ED showed that he was dysarthric, unsteady, and weak in the right upper extremity. He received TPA. His symptoms resolved. Neurology workup showed a chronic occlusion of the right ICA. Echo did not show any evidence of thrombus. Brain MRI did not show any evidence of acute CVA. Patient clinically is better. According to the patient she has had problem with unsteady gait for years, and needs a walker to ambulate. Yesterday patient complained of pain in the right foot. It apparently started the day prior to admission. She thought she might have stepped on something. She has not had any problem with infection on the feet, or any problems with wounds. X-ray did not show any evidence of bony abnormality. MRI is showing some abnormality in the fifth toe and in the big toe. At the time my exam patient stated that his foot pain is completely gone. She is able to put weight on it and she is walking like her baseline. She is afebrile. Sed rate is normal. Patient is currently not on antibiotics. Infectious disease consultation has been requested due to the concern of possible osteomyelitis as seen on the MRI of the foot. Review of Systems Constitutional: Denies chills, Denies fever(s), Denies headache(s), Denies night sweats Eyes: Denies discharge, Denies dry eyes Ears, Nose, Mouth, and Throat: Denies difficulty swallowing, Denies lip swelling , Denies mouth pain, Denies nasal discharge, Denies sore throat Cardiovascular: Denies chest pain, Denies shortness of breath Respiratory: Denies chest congestion, Denies cough, Denies shortness of breath Gastrointestinal: Denies abdominal pain, Denies incontinent of stools, Denies loose stools, Denies nausea, Denies pain with swallowing, Denies vomiting Genitourinary: Denies difficulty urinating, Denies painful urination Musculoskeletal: Denies body aches, Denies joint swelling Skin/Breast: Denies rash, Denies wounds Neurologic: Reports unsteadiness, Denies tingling, Denies tingling/numbness/ burning sensations Psychiatric: Reports confusion PMFSH - History History Provided By: Patient - Medical History Medical History: Medical History (Last Reviewed 09/23/18 @ 13:00 by Octavia Rosenberg MD) Alzheimer's disease Dementia Hypertension Kidney disease - Tobacco History Second Hand Smoke Exposure: No Tobacco Use In Past 30 Days: No Smoking Status: Former smoker - Alcohol History How Often Do You Have a Drink Containing Alcohol: Never - Substance Use History Substance History: No History of Abuse - Travel History Recent Travel in the [place] Within the Last 8 Weeks: No Recent Travel Out of the Country Within the Last 8 Weeks: No - Immunization History Tetanus Immunization: >5 Years Hx Influenza Vaccine This Season: Yes Medications and Allergies Active Medications: Active Medications Al Hydroxide/Mg Hydroxide (Milk Of Magnfariba Liq) 30 ml PO Q12H PRN PRN Reason: Mild Constipation Albuterol (Duoneb Neb (Prn)) 1 ampul NEB Q2HR NEB PRN PRN Reason: WHEEZING Amlodipine Besylate (Norvasc) 10 mg PO DAILY [facility] Last Admin: 09/23/18 09:39 Dose: 10 mg Atorvastatin Calcium (Lipitor) 20 mg PO HS [facility] Last Admin: 09/22/18 22:59 Dose: 20 mg Bisacodyl (Dulcolax Supp) 10 mg RECTAL DAILY PRN PRN Reason: SEVERE CONSITIPATION Chlorhexidine Gluconate (Chlorhexidine 2% Cloth) 3 pack TOPICAL DAILY@0400 [facility] Stop: 09/24/18 03:59 Last Admin: 09/23/18 03:09 Dose: Not Given Chlorhexidine Gluconate (Chlorhexidine 2% Cloth) 3 pack TOPICAL DAILY@0400 PRN PRN Reason: Extra cloth needed Stop: 09/24/18 03:59 Clonidine HCl (Catapres) 0.2 mg PO Q12HR [facility] Last Admin: 09/23/18 09:39 Dose: 0.2 mg Clonidine HCl (Catapres) 0.1 mg PO Q6H PRN PRN Reason: SBP > 170 Clopidogrel Bisulfate (Plavix) 75 mg PO Q24H [facility] Last Admin: 09/22/18 22:59 Dose: 75 mg Dextrose (D50w Vial) 50 ml IV.PUSH UNSCH PRN PRN Reason: PER HYPOGLYCEMIA PROTOCOL Glucagon (Glucagon Inj) 1 mg OTHER PRN PRN PRN Reason: for Hypoglycemia Protocol Hydralazine HCl (Apresoline Inj) 10 mg IV.PUSH Q2H PRN PRN Reason: SBP > 170 Last Admin: 09/21/18 10:37 Dose: 10 mg Hydralazine HCl (Apresoline) 50 mg PO Q6H PRN PRN Reason: SBP > 170 Last Admin: 09/20/18 15:46 Dose: 50 mg Hydralazine HCl (Apresoline) 25 mg PO TID [facility] Last Admin: 09/23/18 12:08 Dose: 25 mg Sodium Chloride (Ns Inj) 1,000 mls @ 70 mls/hr IV.CONT .[id number] [facility] Last Infusion: 09/23/18 11:51 Dose: Infused Nicardipine HCl 25 mg/ Sodium (Chloride) 250 mls @ 50 mls/hr IV.CONT TITRATE PRN; Protocol PRN Reason: Per Protocol Last Titration: 09/19/18 10:30 Dose: 0 mg/hr, 0 mls/hr Insulin Aspart (Novolog Insulin Correctional Sugar Inj) 0 unit SQ Q6HR [facility]; Protocol Last Admin: 09/23/18 12:08 Dose: 1 unit Labetalol HCl (Trandate Inj) 20 mg IV.PUSH Q2H PRN PRN Reason: SBP > 180 Last Admin: 09/21/18 09:41 Dose: 20 mg Lactulose (Lactulose Liq) 30 ml PO DAILY PRN PRN Reason: SEVERE CONSITIPATION Morphine Sulfate (Morphine Inj) 2 mg IV.PUSH Q2H PRN PRN Reason: PAIN SCALE 6 TO 10 Senna/Docusate Sodium (Camila-Colace) 1 tab PO BID [facility] Last Admin: 09/23/18 09:39 Dose: 1 tab Sennosides (Senokot) 17.2 mg PO Q12H PRN PRN Reason: Moderate Constipation Sodium Chloride (Ns Flush) 2 ml IV.FLUSH BID [facility] Last Admin: 09/23/18 09:51 Dose: 2 ml Sodium Chloride (Ns Flush) 2 ml IV.FLUSH PRN PRN PRN Reason: FLUSH AFTER USING IV ACCESS Allergies Allergy/AdvReac Type Severity Reaction Status Date / Time ampicillin Allergy Intermediate DIARRHEA Verified 09/18/18 23:08 Home Medications Medication Instructions Recorded Confirmed Type amlodipine 10 mg PO DAILY 09/18/18 09/18/18 History clonidine HCl 0.1 mg PO BID 09/18/18 09/18/18 History glipizide 5 mg PO DAILY 09/18/18 09/18/18 History linagliptin [Tradjenta] 5 mg PO DAILY 09/18/18 09/18/18 History lovastatin 20 mg PO HS 09/18/18 09/18/18 History omeprazole 20 mg PO HS 09/18/18 09/18/18 History Exam Vital signs: Vital Signs 09/22/18 16:00 09/22/18 20:00 09/22/18 21:00 Temperature 98.2 F 97.8 F Pulse Rate 68 52 L Respiratory Rate 20 16 Blood Pressure 140/70 199/88 H 168/78 H Pulse Oximetry 97 96 09/23/18 00:00 09/23/18 02:45 09/23/18 04:00 Temperature 98.6 F 98.2 F 97.8 F Pulse Rate 61 63 65 Respiratory Rate 16 20 16 Blood Pressure 139/71 146/73 H 169/77 H Pulse Oximetry 97 96 97 09/23/18 08:00 Temperature 98 F Pulse Rate 60 Respiratory Rate 18 Blood Pressure 173/75 H Pulse Oximetry 97 Intake & Output 09/22/18 09/23/18 09/23/18 18:59 06:59 18:59 Intake Total 700 / 700 900 / 900 Balance 700 / 700 900 / 900 Intake: IV 100 / 100 900 / 900 NS Inj 1,000 ML @ 70 mls/hr IV. 100 / 100 900 / 900 CONT .[id number] [facility] Rx#:[id number] Oral 600 / 600 Other: # Voids 5 2 # Incontinent Voids 2 # Urine Diapers 1 # Incontinent Bowel Movements 3 Narrative: Physical examination GENERAL: Patient is a well-nourished, well-developed female, awake and alert , not in respiratory distress. SKIN: Cool and dry. No generalized rash, no ecchymoses and no evidence of embolic lesions. HEAD: Atraumatic. Normocephalic. No temporal wasting, or tenderness. EYES: Free Soil conjunctiva. No petechia or hemorrhage. Pupils equal, round and reactive to light. Extraocular movements full and intact. No scleral icterus. No injection or drainage. EARS, NOSE AND THROAT: Nose without bleeding or purulent nasal discharge. No sinus tenderness. Mucous membranes pink and moist. No oral lesions noted. No exudate. No oral thrush. NECK: Trachea midline. Supple and not tender, no meningeal signs CARDIOVASCULAR: Regular rate and rhythm. No murmurs, rubs or gallops heard RESPIRATORY: Clear to auscultation. Breath sounds equal bilaterally. No rales , wheezing or rhonchi ABDOMEN: Soft, non-tender, nondistended. Bowel sounds present and normoactive. No guarding. No rebound. No organomegaly. EXTREMITIES: No clubbing, cyanosis, or edema. Has chronic brownish pigmentation both legs. No joint effusion, has good ROM. No calf tenderness. L foot normal. R Foot normal - no wounds, no swelling, no redness, no tenderness on palpation specifically on her big toe and 5th toe NEUROLOGICAL: Awake and alert. Cranial nerves grossly intact. Motor grossly within normal limits. PSYCHIATRIC: Normal affect, calm and cooperative. LINE: No evidence of infection Results - Labs CBC & Chem 7: 09/18/18 13:50 09/19/18 21:59 Labs: Laboratory Results - last 24 hr 09/19/18 09/22/18 09/22/18 21:59 12:02 16:34 POC Glucose 142 H [place] Screen Neg RPR Nonreactive 09/22/18 09/23/18 09/23/18 23:03 06:30 12:06 POC Glucose 166 H 141 H 155 H [place] Screen RPR - Imaging Impressions Foot MRI 09/22/18 00:00 CONCLUSION: 1. Signal changes of the fifth metatarsal head and neck of concern for osteomyelitis. The adjacent soft tissues are ulcerated dorsally and laterally. No abscess. 2. Questionable osteomyelitis of the great toe distal phalanx and head of the proximal phalanx. 3. No other evidence of osteomyelitis. 4. [id number] osteoarthritis of Lisfranc joint. 5. Moderate severity plantar fasciitis/fibromatosis. No tear. 6. Achilles tendinosis/enthesopathic changes without tear. Foot X-Ray 09/22/18 13:49 CONCLUSION: No evidence of acute bony abnormality or significant soft tissue swelling. Assessment and Plan - Plan Impression TIA, neuro symptoms resolved - received TPA in ED R foot pain, resolved - MRI abnormal but clinically no evidence to support any infection in her R foot\ - R big toe and 5th toe look normal with no evidence of infection Clinically no evidence of osteo R foot Recommendation Clinically no evidence of osteo to correlate with abnormal findings of MRI Will not give any systemic Abx She can followup with her primary care She can have reevaluation of her foot if she develops any new or recurrent problems Thank you for this consultation Please call if there is any new ID issue or question
--- NOTE | 2018-09-23 18:20 | P.CONPOD ---
History of Present Illness Service: podiatry Consult date: 09/23/18 Reason for Consult: right foot pain, possible infection Primary Care Provider: UNKNOWN Chief Complaint: Slurred speech, unsteady walking History of Present Illness: 78-year-old female with pain yesterday to her right foot specifically to the 4th toe. It apparently started the day prior to admission. She thought she might have stepped [place] something [place]. She has not had any problem with infection on the feet, or any problems with wounds in the past. X-ray was negative and MRI was ordered with abnormalities to hallux/5th digit. Review of Systems All other systems reviewed negative except as stated in HPI [facility] - History History Provided By: Patient - Medical History Medical History: Medical History (Last Reviewed 09/23/18 @ 13:00 by Octavia Rosenberg MD) Alzheimer's disease Dementia Hypertension Kidney disease - Tobacco History Second Hand Smoke Exposure: No Tobacco Use In Past 30 Days: No Smoking Status: Former smoker - Alcohol History How Often Do You Have a Drink Containing Alcohol: Never - Substance Use History Substance History: No History of Abuse - Travel History Recent Travel in the [place] Within the Last 8 Weeks: No Recent Travel Out of the Country Within the Last 8 Weeks: No - Immunization History Tetanus Immunization: >5 Years Hx Influenza Vaccine This Season: Yes Medications and Allergies Active Medications: Active Medications Al Hydroxide/Mg Hydroxide (Milk Of Khanh Conley) 30 ml PO Q12H PRN PRN Reason: Mild Constipation Albuterol (Duoneb Neb (Prn)) 1 ampul NEB Q2HR NEB PRN PRN Reason: WHEEZING Amlodipine Besylate (Norvasc) 10 mg PO DAILY [facility] Last Admin: 09/23/18 09:39 Dose: 10 mg Atorvastatin Calcium (Lipitor) 20 mg PO HS [facility] Last Admin: 09/22/18 22:59 Dose: 20 mg Bisacodyl (Dulcolax Supp) 10 mg RECTAL DAILY PRN PRN Reason: SEVERE CONSITIPATION Chlorhexidine Gluconate (Chlorhexidine 2% Cloth) 3 pack TOPICAL DAILY@0400 [facility] Stop: 09/24/18 03:59 Last Admin: 09/23/18 03:09 Dose: Not Given Chlorhexidine Gluconate (Chlorhexidine 2% Cloth) 3 pack TOPICAL DAILY@0400 PRN PRN Reason: Extra cloth needed Stop: 09/24/18 03:59 Clonidine HCl (Catapres) 0.2 mg PO Q12HR [facility] Last Admin: 09/23/18 09:39 Dose: 0.2 mg Clonidine HCl (Catapres) 0.1 mg PO Q6H PRN PRN Reason: SBP > 170 Clopidogrel Bisulfate (Plavix) 75 mg PO Q24H [facility] Last Admin: 09/22/18 22:59 Dose: 75 mg Dextrose (D50w Vial) 50 ml IV.PUSH UNSCH PRN PRN Reason: PER HYPOGLYCEMIA PROTOCOL Glucagon (Glucagon Inj) 1 mg OTHER PRN PRN PRN Reason: for Hypoglycemia Protocol Hydralazine HCl (Apresoline Inj) 10 mg IV.PUSH Q2H PRN PRN Reason: SBP > 170 Last Admin: 09/21/18 10:37 Dose: 10 mg Hydralazine HCl (Apresoline) 50 mg PO Q6H PRN PRN Reason: SBP > 170 Last Admin: 09/20/18 15:46 Dose: 50 mg Hydralazine HCl (Apresoline) 25 mg PO TID [facility] Last Admin: 09/23/18 17:56 Dose: 25 mg Nicardipine HCl 25 mg/ Sodium (Chloride) 250 mls @ 50 mls/hr IV.CONT TITRATE PRN; Protocol PRN Reason: Per Protocol Last Titration: 09/19/18 10:30 Dose: 0 mg/hr, 0 mls/hr Insulin Aspart (Novolog Insulin Correctional Sugar Inj) 0 unit SQ Q6HR [facility]; Protocol Last Admin: 09/23/18 17:56 Dose: Not Given Labetalol HCl (Trandate Inj) 20 mg IV.PUSH Q2H PRN PRN Reason: SBP > 180 Last Admin: 09/21/18 09:41 Dose: 20 mg Lactulose (Lactulose Liq) 30 ml PO DAILY PRN PRN Reason: SEVERE CONSITIPATION Morphine Sulfate (Morphine Inj) 2 mg IV.PUSH Q2H PRN PRN Reason: PAIN SCALE 6 TO 10 Senna/Docusate Sodium (Camila-Colace) 1 tab PO BID [facility] Last Admin: 09/23/18 09:39 Dose: 1 tab Sennosides (Senokot) 17.2 mg PO Q12H PRN PRN Reason: Moderate Constipation Sodium Chloride (Ns Flush) 2 ml IV.FLUSH BID [facility] Last Admin: 09/23/18 09:51 Dose: 2 ml Sodium Chloride (Ns Flush) 2 ml IV.FLUSH PRN PRN PRN Reason: FLUSH AFTER USING IV ACCESS Allergies Allergy/AdvReac Type Severity Reaction Status Date / Time ampicillin Allergy Intermediate DIARRHEA Verified 09/18/18 23:08 Home Medications Medication Instructions Recorded Confirmed Type amlodipine 10 mg PO DAILY 09/18/18 09/18/18 History clonidine HCl 0.1 mg PO BID 09/18/18 09/18/18 History glipizide 5 mg PO DAILY 09/18/18 09/18/18 History linagliptin [Tradjenta] 5 mg PO DAILY 09/18/18 09/18/18 History lovastatin 20 mg PO HS 09/18/18 09/18/18 History omeprazole 20 mg PO HS 09/18/18 09/18/18 History Physical Exam Vital signs: Vital Signs 09/22/18 20:00 09/22/18 21:00 09/23/18 00:00 Temperature 97.8 F 98.6 F Pulse Rate 52 L 61 Respiratory Rate 16 16 Blood Pressure 199/88 H 168/78 H 139/71 Pulse Oximetry 96 97 09/23/18 02:45 09/23/18 04:00 09/23/18 08:00 Temperature 98.2 F 97.8 F 98 F Pulse Rate 63 65 60 Respiratory Rate 20 16 18 Blood Pressure 146/73 H 169/77 H 173/75 H Pulse Oximetry 96 97 97 09/23/18 12:45 09/23/18 15:32 Temperature 97.3 F L 97.7 F Pulse Rate 56 L 60 Respiratory Rate 20 28 H Blood Pressure 134/62 Pulse Oximetry 97 97 Intake & Output 09/22/18 09/23/18 09/23/18 18:59 06:59 18:59 Intake Total 700 / 700 900 / 900 Balance 700 / 700 900 / 900 Intake: IV 100 / 100 900 / 900 NS Inj 1,000 ML @ 70 mls/hr IV. 100 / 100 900 / 900 CONT .[id number] [facility] Rx#:[id number] Oral 600 / 600 Other: # Voids 5 2 # Incontinent Voids 2 # Urine Diapers 1 # Incontinent Bowel Movements 3 Narrative: diminished pedal pulses. Hair loss to foot and digits, thin skin. elongated toenails. No open wounds or sign of infection whatsoever. sensation intact bilaterally Results - Labs CBC & Chem 7: 09/18/18 13:50 09/19/18 21:59 Laboratory Results - last 24 hr 09/22/18 09/23/18 09/23/18 23:03 06:30 12:06 POC Glucose 166 H 141 H 155 H 09/23/18 17:54 POC Glucose 131 H - Imaging Impressions Foot MRI 09/22/18 00:00 CONCLUSION: 1. Signal changes of the fifth metatarsal head and neck of concern for osteomyelitis. The adjacent soft tissues are ulcerated dorsally and laterally. No abscess. 2. Questionable osteomyelitis of the great toe distal phalanx and head of the proximal phalanx. 3. No other evidence of osteomyelitis. 4. [id number] osteoarthritis of Lisfranc joint. 5. Moderate severity plantar fasciitis/fibromatosis. No tear. 6. Achilles tendinosis/enthesopathic changes without tear. Assessment and Plan - Assessment (1) Pain in right foot Code(s): M79.671 - Pain in right foot Status: Acute - Plan No treatment required. States pain is resolving, but mild discomfort to 4th toe. Follow up outpatient if pain continues after 2-3 weeks for further examination in-office. Podiatry signing off
[2018-09-24] MEDS: Insulin NovoLOG Aspart Correctional Sugar Inj SQ SCH ×4 (01:08→19:17)
[2018-09-24] MEDS: amLODIPine 10 MG Tablet PO SCH (08:53)
[2018-09-24] MEDS: Senna/Docusate Sodium 8.6/50 MG Tablet PO SCH ×2 (08:53→20:51)
[2018-09-24] MEDS: hydrALAZINE 25 MG Tablet PO SCH ×3 (08:54→19:17)
--- NOTE | 2018-09-24 10:22 | P.PNNEU ---
Subjective Active Medications: Active Medications Al Hydroxide/Mg Hydroxide (Milk Of Khanh Liq) 30 ml PO Q12H PRN PRN Reason: Mild Constipation Albuterol (Duoneb Neb (Prn)) 1 ampul NEB Q2HR NEB PRN PRN Reason: WHEEZING Amlodipine Besylate (Norvasc) 10 mg PO DAILY [facility] Last Admin: 09/24/18 08:53 Dose: 10 mg Atorvastatin Calcium (Lipitor) 20 mg PO HS [facility] Last Admin: 09/23/18 20:57 Dose: 20 mg Bisacodyl (Dulcolax Supp) 10 mg RECTAL DAILY PRN PRN Reason: SEVERE CONSITIPATION Clonidine HCl (Catapres) 0.2 mg PO Q12HR [facility] Last Admin: 09/24/18 08:53 Dose: 0.2 mg Clonidine HCl (Catapres) 0.1 mg PO Q6H PRN PRN Reason: SBP > 170 Last Admin: 09/24/18 03:59 Dose: 0.1 mg Clopidogrel Bisulfate (Plavix) 75 mg PO Q24H [facility] Last Admin: 09/23/18 20:57 Dose: 75 mg Dextrose (D50w Vial) 50 ml IV.PUSH UNSCH PRN PRN Reason: PER HYPOGLYCEMIA PROTOCOL Glucagon (Glucagon Inj) 1 mg OTHER PRN PRN PRN Reason: for Hypoglycemia Protocol Hydralazine HCl (Apresoline Inj) 10 mg IV.PUSH Q2H PRN PRN Reason: SBP > 170 Last Admin: 09/21/18 10:37 Dose: 10 mg Hydralazine HCl (Apresoline) 50 mg PO Q6H PRN PRN Reason: SBP > 170 Last Admin: 09/20/18 15:46 Dose: 50 mg Hydralazine HCl (Apresoline) 50 mg PO TID [facility] Nicardipine HCl 25 mg/ Sodium (Chloride) 250 mls @ 50 mls/hr IV.CONT TITRATE PRN; Protocol PRN Reason: Per Protocol Last Titration: 09/19/18 10:30 Dose: 0 mg/hr, 0 mls/hr Insulin Aspart (Novolog Insulin Correctional Sugar Inj) 0 unit SQ Q6HR CORDELIA; Protocol Last Admin: 09/24/18 06:30 Dose: Not Given Labetalol HCl (Trandate Inj) 20 mg IV.PUSH Q2H PRN PRN Reason: SBP > 180 Last Admin: 09/21/18 09:41 Dose: 20 mg Lactulose (Lactulose Liq) 30 ml PO DAILY PRN PRN Reason: SEVERE CONSITIPATION Morphine Sulfate (Morphine Inj) 2 mg IV.PUSH Q2H PRN PRN Reason: PAIN SCALE 6 TO 10 Senna/Docusate Sodium (Camila-Colace) 1 tab PO BID [facility] Last Admin: 09/24/18 08:53 Dose: 1 tab Sennosides (Senokot) 17.2 mg PO Q12H PRN PRN Reason: Moderate Constipation Sodium Chloride (Ns Flush) 2 ml IV.FLUSH BID [facility] Last Admin: 09/24/18 08:54 Dose: 2 ml Sodium Chloride (Ns Flush) 2 ml IV.FLUSH PRN PRN PRN Reason: FLUSH AFTER USING IV ACCESS Allergies/Adverse Reactions: Allergies Allergy/AdvReac Type Severity Reaction Status Date / Time ampicillin Allergy Intermediate DIARRHEA Verified 09/18/18 23:08 Physical Exam Vital signs: Vital Signs 09/23/18 12:45 09/23/18 15:32 09/23/18 20:00 Temperature 97.3 F L 97.7 F 98.4 F Pulse Rate 56 L 60 66 Respiratory Rate 20 28 H 20 Blood Pressure 134/62 183/74 H Pulse Oximetry 97 97 97 09/24/18 00:00 09/24/18 04:00 09/24/18 08:00 Temperature 97.9 F 98.2 F 99.9 F H Pulse Rate 72 79 66 Respiratory Rate 14 21 16 Blood Pressure 171/79 H 200/88 H 174/77 H Pulse Oximetry 95 95 96 Intake & Output 09/23/18 09/24/18 09/24/18 18:59 06:59 18:59 Intake Total 900 / 900 Balance 900 / 900 Weight 78.5 kg Intake: IV 900 / 900 NS Inj 1,000 ML @ 70 mls/hr IV. 900 / 900 CONT .[id number] [facility] Rx#:[id number] Other: # Voids 3 # Incontinent Voids 3 Date of Last Bowel Movement 09/24/18 # Bowel Movements 1 Narrative: sr vff face sym gait steady with walker energetic oriented Objective Laboratory Results - last 24 hr 09/22/18 09/23/18 09/23/18 12:02 12:06 17:54 POC Glucose 155 H 131 H Thiamine 148 09/23/18 09/24/18 23:26 06:30 POC Glucose 131 H 147 H Thiamine Review/Management - Review/Management Plan: imp no cva on mri ldl nl r ica old occlusion plan is plavix start 75 at 24 hours post tpa and fu echo and holter and ok to dc if echo neg oob ok 09/22/18 echo nl hollter pend ldl nl r ica occ old on plavix check mri repeat for any cva if neg can dc to rehab today oob chair ambulate fu office for dementia 09/24/18 the mri shows one left and two right small cva tiny really acute not seen on prior mri she should get loop in and then ok dc and fu office plavix ok for now
--- NOTE | 2018-09-24 12:29 | P.PN ---
Subjective Interval history: Patient with CVA status post TPA, hypertensive urgency. Patient seen and examined. Patient denies any complaints. Denies any headache, dizziness, vision changes, palpitations, chest pain, N/V, dyspnea or abdominal pain. DW RN , patient had to be placed in restraints due to owning last night. DW patient repeat MRI findings. Physical Exam Vital signs: Vital Signs 09/23/18 12:45 09/23/18 15:32 09/23/18 20:00 Temperature 97.3 F L 97.7 F 98.4 F Pulse Rate 56 L 60 66 Respiratory Rate 20 28 H 20 Blood Pressure 134/62 183/74 H Pulse Oximetry 97 97 97 09/24/18 00:00 09/24/18 04:00 09/24/18 08:00 Temperature 97.9 F 98.2 F 99.9 F H Pulse Rate 72 79 66 Respiratory Rate 14 21 16 Blood Pressure 171/79 H 200/88 H 174/77 H Pulse Oximetry 95 95 96 09/24/18 12:00 Temperature 97.6 F Pulse Rate 62 Respiratory Rate 16 Blood Pressure 151/68 H Pulse Oximetry 98 Intake & Output 09/23/18 09/24/18 09/24/18 18:59 06:59 18:59 Intake Total 900 / 900 Balance 900 / 900 Weight 78.5 kg Intake: IV 900 / 900 NS Inj 1,000 ML @ 70 mls/hr IV. 900 / 900 CONT .[id number] [facility] Rx#:[id number] Other: # Voids 3 # Incontinent Voids 3 Date of Last Bowel Movement 09/24/18 # Bowel Movements 1 Narrative: GENERAL: WDWN elderly female patient, INAD. Awake and alert. Calm and cooperative. SKIN: Warm and dry. +Chronic venous stasis changes noted BLEs. HEENT: Atraumatic. Normocephalic. Pupils equal and round. No scleral icterus. No injection or drainage. No nasal bleeding or discharge. Mucous membranes pink and moist. NECK: Trachea midline. CARDIOVASCULAR: Regular rate and rhythm. RESPIRATORY: No accessory muscle use. Clear to auscultation. Breath sounds equal bilaterally. GASTROINTESTINAL: Abdomen soft, non-tender, nondistended. +BS. MUSCULOSKELETAL: Extremities without clubbing, cyanosis, or edema. No obvious deformities. Right foot exam benign. NEUROLOGICAL: Awake and alert. No obvious cranial nerve deficits. Motor grossly within normal limits. Able to move all extremities spontaneously. Normal speech. PSYCHIATRIC: Appropriate mood and affect; calm and cooperative. Results - Labs CBC & Chem 7: 09/18/18 13:50 09/19/18 21:59 Laboratory Results - last 24 hr 09/22/18 09/23/18 09/23/18 12:02 12:06 17:54 POC Glucose 155 H 131 H Thiamine 148 09/23/18 09/24/18 23:26 06:30 POC Glucose 131 H 147 H Thiamine Assessment and Plan - Plan 78 years sold right handed female CVA S/P TPA Hypertensive urgency right ICA occlusion- old -MRI no CVA. LDL normal -Echo and carotid studies- negative -speech clear, grossly no motor deficits -Neurology ff. Repeat MRI shows focal areas of restricted diffusion along the parietal cortices could be tiny lacunar infarcts, chronic ischemic small vessel vasculopathy. CEASAR Mejía who has consulted cardiology for loop recorder placement. -started on Plavix 75mg daily, continue -Holter in progress -OP ff up with Dr. Mejía on DC and ff up for dementia -continue on home statin 20 mg hs Hypertensive urgency BP elevated this am, 200/88 - possibly due to increased agitation/sundowning -Continue on clonidine 0.2 mg twice daily, Norvasc 10 mg daily. Increase hydralazine to 50 mg 3 times daily -Continue to monitor BP closely DM type 2 on oral hypoglycemic- as OP on glipizide and Tradjenta Blood sugars overall controlled -Continue on Accu-Cheks and insulin sliding scale right foot pain- unable to bear weight, now resolved - MRI right foot + signal changes in the fifth metatarsal head and neck concern for osteomyelitis, questionable osteomyelitis of great toe distal phalanx and head of the proximal phalanx -Evaluated by Podiatry and ID, no further treatment indicated DVT prophylaxis -bilateral SCD/ALCON hose Code Status: Full Discussed Condition With: patient, nursing staff, Dr. Carl, Dr. Mejía Discharge Planning: Discharge pending placement of loop recorder.
--- NOTE | 2018-09-24 12:30 | P.DCO ---
- Diagnosis (1) Impaired activities of daily living Status: Acute (2) Risk for falls Status: Acute (3) Acute CVA (cerebrovascular accident) Status: Acute (4) Encephalopathy acute Status: Acute (5) Hypertensive urgency Status: Acute - Physical Therapy Order: Evaluate and treat, Improve ambulation, Strength and gait training - Home Health Nursing Order: Medical education, Signs/symptoms of disease process, Medication education-adverse effect, Nursing assessment with vital signs - Case Management Consult No - Certification I have seen patient Lydia Carpenter on 09/24/18. My clinical findings support the need for the requested home health care services because: Limited mobility due to disease progression, Deconditioned with increased weakness, Medication compliance is questionable, Limited ability to care for self, Impaired cognition/judgement, High risk of falls I certify that my clinical findings support that this patient is homebound because: Impaired cognitive ability/safety, Unsteady gait/balance, Unsafe to leave home unassisted, Unable to use public transportation
--- NOTE | 2018-09-24 18:36 | ECG ---
Date Performed: 09/24/2018 Time Performed: 07:17:02 PTAGE: 78 years EKG: SINUS BRADYCARDIA NONSPECIFIC ST & T-WAVE ABNORMALITY BORDERLINE ECG PREVIOUS TRACING : 09/18/2018 15.56 Since the previous tracing, no significant change noted DOCTOR: Rich Lane Interpretating Date/Time 09/24/2018 18:34:22
[2018-09-24 20:01] LABS: Hemoglobin A1c 6.3 % (4.3-6.0)
[2018-09-25] MEDS: Insulin NovoLOG Aspart Correctional Sugar Inj SQ SCH ×4 (00:31→17:43)
[2018-09-25] MEDS: hydrALAZINE 50 MG Tablet PO PRN (00:54)
--- NOTE | 2018-09-25 01:15 | MB ---
cc: Addison Parikh DO DATE: 09/24/2018 REASON FOR CONSULTATION: Consideration for a loop recorder. 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 Apparently, she was having difficulty speaking and walking unsteady. Her family recognized the symptoms and brought her straight to the emergency room. She received TPA on 09/18/2018 after consultation with the neurologist. Apparently, her symptoms had largely resolved at that time. She underwent an MRI of the head showing tiny lacunar infarcts. She was continued to be followed by Neurology, and due to concern with the initial one showing no CVA, she then underwent a repeat MRI on 09/22/2018 and during that was found to have 1 left and 2 right small CVAs, which were acute, which were not seen in the primary MRI. Neurology has requested that a loop recorder be placed due to possible atrial fibrillation. She also underwent a Holter monitor, which showed sinus rhythm with PACs as well as PVCs and episodes of regular narrow complex tachycardia, which appear to be paroxysmal atrial tachycardia. No episodes of atrial fibrillation were noted. PAST MEDICAL HISTORY: 1. Hypertension. 2. Borderline diabetes. 3. Hyperlipidemia. 4. Kidney disease. 5. Hypothyroidism. PAST SURGICAL HISTORY: She denies. ALLERGIES: AMPICILLIN. MEDICATIONS: 1. Tradjenta 5 mg daily. 2. Clonidine 0.1 mg b.i.d. 3. Lovastatin 20 mg every night. 4. Glipizide 5 mg daily. 5. Norvasc 10 mg daily. 6. Omeprazole 20 mg every night. FAMILY HISTORY: She denies premature coronary artery disease or sudden cardiac within the family. SOCIAL HISTORY: The patient is a former smoker. She denies alcohol or drug abuse. REVIEW OF SYSTEMS: Fourteen systems were reviewed including osteopathic. Pertinent positives and negatives as above, otherwise negative. PHYSICAL EXAMINATION: VITAL SIGNS: Temperature 97.6, heart rate 62, blood pressure 151/68, respirations 16, pulse oximetry 98% on room air. GENERAL: The patient is alert and awake, with no acute distress. HEENT: Extraocular muscles intact. Mucous membranes moist. NECK: Supple. No JVD at 45 degrees. No carotid bruits heard bilaterally. Carotid upstroke is brisk in nature. HEART: Regular rate and rhythm. Positive first and second heart sounds with no noted murmurs, gallops, or rubs. LUNGS: Clear to auscultation bilaterally. No wheezes, rales, or rhonchi. ABDOMEN: Soft, nontender, nondistended. No organomegaly noted. EXTREMITIES: No clubbing, cyanosis, or edema. Femoral and distal pulses are intact bilaterally. NEUROLOGIC: No focal deficits. SKIN: Warm, dry, and intact. OSTEOPATHIC: No kyphoscoliosis, lordosis, or paraspinal tender points. LABORATORY DATA: Hemoglobin 15.0, hematocrit 43.2, platelets 248. Potassium 3.8, BUN 16, creatinine 1.24. Electrocardiogram (09/24/2018 at 0717): Sinus bradycardia, nonspecific ST-T wave changes. IMPRESSION: 1. Cerebrovascular accident, status post TPA. 2. Hypertensive urgency. 3. Peripheral artery disease with right internal carotid artery occlusion, which is old. 4. Diabetes mellitus. RECOMMENDATIONS: 1. Ms. Carpenter appears to have had multifocal areas of small acute strokes on both the left and right side. 2. Overall, Neurology believes that the patient may have underlying atrial fibrillation as a possible cause. Due to the cryptogenic strokes, they have recommended a loop recorder placement. 3. Risks, benefits, and alternatives have been discussed with the patient. We will plan on placing tomorrow. 4. Overall, she will need further blood pressure control once allowed from a neurological standpoint if they are hoping for permissive hypertension. 5. She will follow up with Dr. Alcaraz upon discharge. Thank you for allowing me to see Lydia Carpenter. If there are any questions, please do not hesitate to call. DO MIKEY Schwartz/rosa isela , 12:24 AM , 12:37 AM
--- NOTE | 2018-09-25 07:51 | P.PN ---
Subjective Interval history: Follow-up on patient with CVA. Patient seen and examined. Patient status post loop recorder placement. She states she feels well. She denies any acute medical complaints. Physical Exam Vital signs: Vital Signs 09/24/18 08:00 09/24/18 12:00 09/24/18 16:00 Temperature 99.9 F H 97.6 F 97.7 F Pulse Rate 66 62 61 Respiratory Rate 16 16 18 Blood Pressure 174/77 H 151/68 H 174/77 H Pulse Oximetry 96 98 97 09/24/18 20:00 09/25/18 00:00 09/25/18 01:56 Temperature 98.2 F 98.1 F Pulse Rate 69 69 Respiratory Rate 21 19 Blood Pressure 187/85 H 181/85 H 166/71 H Pulse Oximetry 96 97 09/25/18 04:00 Temperature 98.1 F Pulse Rate 66 Respiratory Rate 17 Blood Pressure 128/89 Pulse Oximetry 97 Intake & Output 09/24/18 09/25/18 09/25/18 18:59 06:59 18:59 Weight 81.2 kg Other: # Incontinent Voids 5 # Urine Diapers 5 Date of Last Bowel Movement 09/24/18 09/25/18 # Bowel Movements 1 Narrative: GENERAL: WDWN elderly female patient, INAD. Awake and alert. SKIN: Warm and dry. +Chronic venous stasis changes noted BLEs. HEENT: Atraumatic. Normocephalic. Pupils equal and round. No scleral icterus. No injection or drainage. No nasal bleeding or discharge. Mucous membranes pink and moist. NECK: Trachea midline. CARDIOVASCULAR: Regular rate and rhythm. s/p loop recorder placement, dressing intact C/D/I. RESPIRATORY: No accessory muscle use. Clear to auscultation. Breath sounds equal bilaterally. GASTROINTESTINAL: Abdomen soft, non-tender, nondistended. +BS. MUSCULOSKELETAL: Extremities without clubbing, cyanosis, or edema. No obvious deformities. Right foot exam benign. NEUROLOGICAL: Awake and alert. No obvious cranial nerve deficits. Motor grossly within normal limits. Able to move all extremities spontaneously. Normal speech. PSYCHIATRIC: Appropriate mood and affect; calm and cooperative. 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 LDL normal -Echo and carotid studies- negative -speech clear, grossly no motor deficits -Neurology ff. Repeat MRI shows focal areas of restricted diffusion along the parietal cortices could be tiny lacunar infarcts, chronic ischemic small vessel vasculopathy. DW Dr. Mejía who has consulted cardiology for loop recorder placement. -s/p loop recorder placement by Dr. Parikh earlier today. Patient to follow up with her apple thinner Dr. Richards following discharge. -started on Plavix 75mg daily, continue -OP ff up with Dr. Mejía on DC and ff up for dementia -continue on home statin 20 mg hs Hypertensive urgency BP improved -Continue on clonidine 0.2 mg twice daily, Norvasc 10 mg daily and hydralazine to 50 mg 3 times daily -Continue to monitor BP closely DM type 2 on oral hypoglycemic- as OP on glipizide and Tradjenta Blood sugars overall controlled -Continue on Accu-Cheks and insulin sliding scale right foot pain- unable to bear weight, now resolved - MRI right foot + signal changes in the fifth metatarsal head and neck concern for osteomyelitis, questionable osteomyelitis of great toe distal phalanx and head of the proximal phalanx -Evaluated by Podiatry and ID, no further treatment indicated DVT prophylaxis -bilateral SCD/ALCON hose Code Status: Full Discussed Condition With: patient, nursing staff, Dr. Carl, Dr. Parikh Discharge Planning: Plan for discharge later today
[2018-09-25] MEDS ORDERED: niCARdipine 20mg/NS Premix 20 MG/200 ML PIGGYBACK IV.SIG PRN (08:37)
[2018-09-25] MEDS: Senna/Docusate Sodium 8.6/50 MG Tablet PO SCH (08:48)
[2018-09-25] MEDS: amLODIPine 10 MG Tablet PO SCH (08:48)
[2018-09-25] MEDS: hydrALAZINE 25 MG Tablet PO SCH ×3 (08:48→17:44)
[2018-09-25 10:17] VITALS: RESP 20
[2018-09-25] MEDS ORDERED: Mupirocin 2% Nasal Oint Topical Syringe EACH NARE SCH (10:45)
[2018-09-25] MEDS ORDERED: Sod Chloride 0.9% Inj 1,000 ML IV.CONT SCH (10:45)
[2018-09-25] MEDS ORDERED: Chlorhexidine Gluconate 2% 1 Pack (2 Cloths) TOPICAL SCH (10:45)
[2018-09-25] MEDS ORDERED: fentaNYL Citrate Inj 100 MCG/2 ML Ampul ONE (10:46)
[2018-09-25] MEDS ORDERED: Vancomycin Inj 1,000 MG in Sodium Chlor 0.9% Inj 250 ML IV.SIG ONE (11:00)
[2018-09-25] MEDS ORDERED: Midazolam Inj 5 MG/ML 1 ML Vial IV.PUSH ONE (13:00)
[2018-09-25] MEDS ORDERED: fentaNYL Citrate Inj 100 MCG/2 ML Ampul IV.PUSH ONE (13:00)
--- NOTE | 2018-09-25 14:46 | P.DS ---
Date of admission: 09/18/18 14:49 Primary care physician: UNKNOWN Attending physician on discharge: Jasvir Carl Anticipated date of discharge: 09/25/18 Brief History from admission: This 78-year-old right-handed woman developed sudden speech difficulty earlier today and when attempting to walk she was unsteady. Her family recognized stroke symptomatology and brought her straight to the emergency department where she was found to be dysarthric, unsteady, and weak in the right arm. Blood pressure was controlled with nicardipine and she received TPA after consultation with the neurologist. I have seen her initially on the floor following her arrival and her symptoms have largely resolved. She does sense that her words were abnormal initially despite appearing normal to others. Her history is significant for hypertension and diabetes. We will plan to hold her outpatient antihypertensives, amlodipine and clonidine, tonight and adjust the Cardene drip for better control. Patient update on day of discharge: Patient seen and examined. Patient status post loop recorder placement. Postoperative site covered in postop dressing is clean dry and intact. Patient denies any complaints of chest pain or shortness of breath. She denies any nausea vomiting or abdominal pain. DS: Diagnosis - Discharge Diagnosis (1) Carotid artery occlusion Status: Acute (2) Acute CVA (cerebrovascular accident) Status: Acute (3) Encephalopathy acute Status: Acute (4) Hypertensive urgency Status: Acute (5) Dysarthria Status: Acute (6) Pain in right foot Status: Acute (7) Risk for falls Status: Acute (8) Impaired activities of daily living Status: Acute DS: Medications - Discharge Medications Prescriptions: atorvastatin 20 mg PO HS #30 tab clonidine HCl [Catapres] 0.2 mg PO Q12HR #60 tab clopidogrel [Plavix] 75 mg PO Q24H #30 tab hydralazine 50 mg PO TID #90 tab DS: Summary Hospital Course: Patient admitted to critical care service with sudden speech difficulty and unsteady gait. Patient was also noted to be dysarthric and with weakness of the right arm. She was found to have complete right internal carotid artery occlusion and was treated with TPA. She was seen in consultation by neurology. She was started on nicardipine for hypertensive urgency. MRI of the brain failed to show any acute findings. Patient was started on Plavix. Echocardiogram was obtained which revealed low normal EF and mild mitral regurgitation. Patient's blood pressure improved and she was able to be managed with oral antihypertensive alone. She developed complaints of right foot pain and x-rays were negative however follow-up MRI revealed concern for osteomyelitis. Patient was seen in consultation by podiatry who did not see any evidence of infection and no further treatment was warranted. Patient improved clinically. Repeat MRI study was concerning for tiny lacunar infarcts. Neurology consulted cardiology for loop recorder placement prior to discharge. Patient had a loop recorder placed without incident. Patient was cleared for discharge from neurologic and cardiac standpoint. Patient received maximum benefit from hospitalization and was discharged to home with home health care in satisfactory condition. - Time Spent with Patient Total time spent providing and/or coordinating discharge services: Greater than 30 minutes - Quality: Stroke Last date observed well: 09/18/18 Last time observed well: 13:15 - Quality: VTE Deep Vein Thrombosis/Pulmonary Embolism Present on Admission: No Exam Vital signs: Vital Signs 09/24/18 16:00 09/24/18 20:00 09/25/18 00:00 Temperature 97.7 F 98.2 F 98.1 F Pulse Rate 61 69 69 Respiratory Rate 18 21 19 Blood Pressure 174/77 H 187/85 H 181/85 H Pulse Oximetry 97 96 97 09/25/18 01:56 09/25/18 04:00 09/25/18 08:00 Temperature 98.1 F 98.6 F Pulse Rate 66 60 Respiratory Rate 17 20 Blood Pressure 166/71 H 128/89 185/78 H Pulse Oximetry 97 95 Intake & Output 09/24/18 09/25/18 09/25/18 18:59 06:59 18:59 Weight 81.2 kg Other: # Incontinent Voids 5 # Urine Diapers 5 Date of Last Bowel Movement 09/24/18 09/25/18 09/25/18 # Bowel Movements 1 Narrative: GENERAL: WDWN elderly female patient, INAD. Awake and alert. Sitting up in bed watching TV. SKIN: Warm and dry. +Chronic venous stasis changes noted BLEs. HEENT: Atraumatic. Normocephalic. Pupils equal and round. No scleral icterus. No injection or drainage. No nasal bleeding or discharge. Mucous membranes pink and moist. NECK: Trachea midline. CARDIOVASCULAR: Regular rate and rhythm. s/p loop recorder placement, dressing intact C/D/I. RESPIRATORY: No accessory muscle use. Clear to auscultation. Breath sounds equal bilaterally. GASTROINTESTINAL: Abdomen soft, non-tender, nondistended. +BS. MUSCULOSKELETAL: Extremities without clubbing, cyanosis, or edema. No obvious deformities. Right foot exam benign. NEUROLOGICAL: Awake and alert. No obvious cranial nerve deficits. Motor grossly within normal limits. Able to move all extremities spontaneously. Normal speech. PSYCHIATRIC: Appropriate mood and affect; calm and cooperative. Results Procedures completed during hospitalization: 09/25/18 s/p Loop recorder placement Labs on day of discharge: Labs from last 24 hours 09/25/18 09/25/18 09/25/18 12:58 06:06 00:18 POC Glucose 117 H 150 H 136 H Hemoglobin A1c 09/24/18 09/24/18 16:39 06:44 POC Glucose 137 H Hemoglobin A1c 6.3 H - Impressions ITS Impressions Chest X-Ray 09/18/18 13:47 CONCLUSION: Mild interstitial prominence in the lungs. Old healed fracture of the right humerus. No infiltrate. Head CTA 09/18/18 13:47 CONCLUSION: 1. Occlusion of the right internal carotid artery. 2. Slightly hypoplastic right A1 segment. Otherwise, there is reconstitution of the anterior and middle cerebral arteries through the anterior communicating artery and likely posterior communicating arteries although the P-comm's are also hypoplastic. No evidence for TODD or MCA large vessel occlusion. Neck CTA 09/18/18 13:47 CONCLUSION: 1. Complete occlusion of the right internal carotid artery. 2. Mild narrowing the left internal carotid artery. Head CT 09/19/18 14:11 CONCLUSION: 1. Examination quality is degraded by motion artifact. No hemorrhage is identified. 2. Chronic findings include mild generalized atrophy and moderate periventricular white matter change. . Foot MRI 09/22/18 00:00 CONCLUSION: 1. Signal changes of the fifth metatarsal head and neck of concern for osteomyelitis. The adjacent soft tissues are ulcerated dorsally and laterally. No abscess. 2. Questionable osteomyelitis of the great toe distal phalanx and head of the proximal phalanx. 3. No other evidence of osteomyelitis. 4. Hjvu-[id number] osteoarthritis of Lisfranc joint. 5. Moderate severity plantar fasciitis/fibromatosis. No tear. 6. Achilles tendinosis/enthesopathic changes without tear. Head MRI 09/22/18 00:00 CONCLUSION: 1. Focal areas of restricted diffusion along the parietal cortices could be tiny lacunar infarcts. 2. Chronic ischemic small vessel vasculopathy. Foot X-Ray 09/22/18 13:49 CONCLUSION: No evidence of acute bony abnormality or significant soft tissue swelling. Discharge Plan - Discharge Disposition Patient Disposition: W/Home Health Service - Discharge Condition Condition: Stable - Discharge Order Discharge Orders: Discharge Order (Routine); Ordered 09/25/18 Ordered By: Richa Jeffries - Discharge Details Anticipated Discharge Date: 09/25/18 - Physicians Team Primary Care Provider: UNKNOWN, Attending Provider: Jasvir Carl Other Providers: Albert Delgado MD ; [facility],Agency ; Octavia Rosenberg MD ; Darrick Aquino DPM ; Addison Parikh DO ; [facility]ency
[2018-09-25 17:55] VITALS: TEMP 97.8; O2SAT 96
[2018-09-25 18:50] VITALS: BP 139/64; PULSE 61
--- NOTE | 2018-09-25 23:15 | P.PNCA ---
Subjective Interval history: No complaints s/p loop recorder placement Medications and Allergies Allergies Allergy/AdvReac Type Severity Reaction Status Date / Time ampicillin Allergy Intermediate DIARRHEA Verified 09/18/18 23:08 Home Medications Medication Instructions Recorded Confirmed Type amlodipine 10 mg PO DAILY 09/18/18 09/18/18 History glipizide 5 mg PO DAILY 09/18/18 09/18/18 History linagliptin [Tradjenta] 5 mg PO DAILY 09/18/18 09/18/18 History omeprazole 20 mg PO HS 09/18/18 09/18/18 History Physical Exam Vital signs: Vital Signs 09/25/18 00:00 09/25/18 01:56 09/25/18 04:00 Temperature 98.1 F 98.1 F Pulse Rate 69 66 Respiratory Rate 19 17 Blood Pressure 181/85 H 166/71 H 128/89 Pulse Oximetry 97 97 09/25/18 08:00 09/25/18 16:00 09/25/18 18:49 Temperature 98.6 F 97.8 F Pulse Rate 60 62 61 Respiratory Rate 20 20 Blood Pressure 185/78 H 172/75 H 139/64 Pulse Oximetry 95 96 Intake & Output 09/25/18 09/25/18 09/26/18 06:59 18:59 06:59 Weight 81.2 kg Other: # Incontinent Voids 5 # Urine Diapers 5 Date of Last Bowel Movement 09/25/18 09/25/18 # Bowel Movements 1 Narrative: GENERAL: WDWN elderly female patient, INAD. Awake and alert. Sitting up in bed watching TV. SKIN: Warm and dry. +Chronic venous stasis changes noted BLEs. HEENT: Atraumatic. Normocephalic. Pupils equal and round. No scleral icterus. No injection or drainage. No nasal bleeding or discharge. Mucous membranes pink and moist. NECK: Trachea midline. CARDIOVASCULAR: Regular rate and rhythm. s/p loop recorder placement, dressing intact C/D/I. RESPIRATORY: No accessory muscle use. Clear to auscultation. Breath sounds equal bilaterally. GASTROINTESTINAL: Abdomen soft, non-tender, nondistended. +BS. MUSCULOSKELETAL: Extremities without clubbing, cyanosis, or edema. No obvious deformities. Right foot exam benign. NEUROLOGICAL: Awake and alert. No obvious cranial nerve deficits. Motor grossly within normal limits. Able to move all extremities spontaneously. Normal speech. PSYCHIATRIC: Appropriate mood and affect; calm and cooperative. Results 09/18/18 13:50 09/19/18 21:59 Intake and Output 09/25/18 09/25/18 09/26/18 14:59 22:59 06:59 Other: Date of Last Bowel Movement 09/25/18 Assessment and Plan - Assessment (1) Acute CVA (cerebrovascular accident) Code(s): I63.9 - Cerebral infarction, unspecified Status: Acute (2) Carotid artery occlusion Code(s): I65.29 - Occlusion and stenosis of unspecified carotid artery Status : Acute (3) Dysarthria Code(s): R47.1 - Dysarthria and anarthria Status: Acute (4) Hypertensive urgency Code(s): I16.0 - Hypertensive urgency Status: Acute - Plan 1) CVA s/p TPA Occluded right carotid Loop recorder placed Instructions given Interrogations to Dr. Alcaraz 2) HTN Better controlled 3) Cardiovascularly stable for discharge, to follow up with Dr. Alcaraz
--- NOTE | 2018-09-26 01:45 | MR ---
cc: Addison Parikh DO DATE: 09/25/2018 DATE OF PROCEDURE: 09/25/2018. PROCEDURE: Placement of a Medtronic Reveal LINQ loop recorder (model number LNQ11, serial number [id number]). PREOPERATIVE DIAGNOSIS: Cryptogenic stroke. POSTPROCEDURE: Status post Loop recorder placement. ANESTHESIA: Moderate sedation, 15 minutes. ESTIMATED BLOOD LOSS: Minimal. 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 She was given tPA at that time. MRI at that time showed no significant problems. She had repeat MRI a few days later, which showed lesions, both on the left and right side and it was felt from Neurology that this is cardioembolic in nature and she should undergo a loop recorder placement. Risks, benefits and alternatives were explained to her and she consented as such. PROCEDURAL SUMMARY: She was brought to the holding area and prepped in the usual sterile fashion. Anterior chest wall was anesthetized with lidocaine. A small incision was placed over the fourth intercostal space on the left chest wall. Loop recorder was then injected under the skin. Evaluation showed good R waves, but minimal P waves and so loop recorder was retrieved and placed in a more horizontal position. R waves were still within range and P waves were now noted. Pressure was held for hemostasis. The patient tolerated the procedure well. MEDICATIONS: Versed 0.5 mg, fentanyl 25 mcg, vancomycin 1 gram. R-wave 0.71 millivolts. HARDWARE: Medtronic Reveal LINQ (model number LNQ11, serial number [id number]). PARAMETERS: Tachycardia greater than 154 beats per minute, bradycardia less than 30 beats per minute, pause greater than 3 seconds. IMPRESSION: 1. Cryptogenic stroke. 2. Status post loop recorder placement. RECOMMENDATIONS: 1. Ms. Carpenter presented with stroke-like symptoms and underwent tPA. Original MRI showed no significant disease, but repeat MRI showed cryptogenic stroke, which was felt to be cardioembolic in nature. 2. Per Neurology's recommendations, she underwent loop recorder placement. 3. From my standpoint, she may be discharged home for followup with Dr. Alcaraz. Interrogations will be sent to his office. Thank you for allowing me to see Lydia Carpenter. If there are any questions, please do not hesitate to call. DO MIKEY Schwartz/guido , 11:55 PM , 12:04 AM
== END 2018-09-25 18:59 | disposition home health service (06) ==
LOC: NEPE 13:35 → NEDA 14:49 → N03 18:30 → N05 09-21 18:04
PROVIDERS: ADMIT Hospitalist; ATTEND Hospitalist

== ENCOUNTER 2018-10-06 17:00 | Inpatient (IN) ==
[2018-10-06] MEDS ORDERED: hydrALAZINE HCl Inj 20 MG/ML Vial IV.PUSH ONE (17:57)
[2018-10-06] MEDS ORDERED: niCARdipine Inj 25 MG in Sodium Chlor 0.9% Inj 240 ML IV.CONT PRN (18:00)
--- NOTE | 2018-10-06 18:05 | ED ---
HPI General Chief complaint: Hypertension Stated complaint: Elevated HBP Time Seen by Provider: 10/06/18 17:46 Source: patient, family and old records reviewed Mode of arrival: ambulatory Limitations: other (Dementia) History of Present Illness HPI narrative: The patient is a 78-year-old female status post TPa for acute CVA on 09/18/2018. The patient also had a loop recorder placed 5 days ago. At discharge she had the diagnosis of carotid artery occlusion with an acute CVA and hypertensive urgency. The patient called her primary today and told him that her blood pressure was 225/124 Dr. Phipps advised her to come to the emergency department immediately. Patient takes clonidine and took the last one 2 hours ago. On arrival here her blood pressure was 223/98 but the patient denies headache, nausea vomiting, dizziness, shortness of breath or chest pain. Related Data Home Medications Medication Instructions Recorded Confirmed amlodipine 10 mg PO DAILY 09/18/18 10/06/18 glipizide 5 mg PO DAILY 09/18/18 10/06/18 linagliptin [Tradjenta] 5 mg PO DAILY 09/18/18 10/06/18 omeprazole 20 mg PO HS 09/18/18 10/06/18 Previous Rx's Medication Instructions Recorded atorvastatin 20 mg PO HS #30 tab 09/25/18 clonidine HCl [Catapres] 0.2 mg PO TID #90 tab 09/25/18 clopidogrel [Plavix] 75 mg PO Q24H #30 tab 09/25/18 hydralazine 50 mg PO TID #90 tab 09/25/18 Allergies Allergy/AdvReac Type Severity Reaction Status Date / Time ampicillin Allergy Intermediate DIARRHEA Verified 10/06/18 17:08 Review of Systems ROS: all other systems reviewed are negative [facility] Medical History Medical History Stroke (Acute) Alzheimer's disease (Acute) Dementia (Acute) Hypertension (Acute) Kidney disease (Acute) Social History Social History Substance History: No History of Abuse Second Hand Smoke Exposure: No Smoking Status: Never smoker How Often Do You Have a Drink Containing Alcohol: Never Recent Travel in [facility] within the Last 8 Weeks: No Recent Out of Country Travel within the Last 8 Weeks: No Immunization History Tetanus Immunization: Unsure Exam Narrative Exam Narrative: GENERAL: Alert and oriented in no distress. SKIN: Focused skin assessment warm/dry. HEAD: Atraumatic. Normocephalic. EYES: Pupils equal and round. No scleral icterus. No injection or drainage. ENT: No nasal bleeding or discharge. Mucous membranes pink and moist. NECK: Trachea midline. No JVD. CARDIOVASCULAR: Regular rate and rhythm. No murmur appreciated. RESPIRATORY: No accessory muscle use. Clear to auscultation. Breath sounds equal bilaterally. GASTROINTESTINAL: Abdomen soft, non-tender, nondistended. Hepatic and splenic margins not palpable. MUSCULOSKELETAL: No obvious deformities. No clubbing. No cyanosis. No edema. NEUROLOGICAL: Awake and alert. No obvious cranial nerve deficits. Motor grossly within normal limits. Normal speech. PSYCHIATRIC: Appropriate mood and affect; insight and judgment normal. Course Reevaluation(s) Reevaluation #1: Patient on Cardene drip with blood pressure 163/71 on reevaluation. Time: 19:04 Initial Documented Vital Signs Temperature 97.6 F 10/06/18 17:05 Pulse Rate 85 10/06/18 17:05 Respiratory Rate 18 10/06/18 17:05 Blood Pressure 228/107 H 10/06/18 17:05 Pulse Oximetry 98 10/06/18 17:05 Last Documented Vital Signs Temperature 97.7 F 10/06/18 23:19 Pulse Rate 75 10/07/18 07:00 Respiratory Rate 23 10/07/18 07:00 Blood Pressure 127/78 10/07/18 06:56 Pulse Oximetry 96 10/07/18 07:00 Critical Care Time Critical Care Time: Yes Total Critical Care Time: 30 Attestation: Aggregate critical care time was 30 minutes. Time to perform other separately billable procedures was not included in the critical care time. My time did not include minutes spent treating any other patients simultaneously or on activities that did not directly contribute to the patient's treatment. The services I provided to this patient were to treat and/or prevent clinically significant deterioration that could result in: Loss of current lifestyle and or I provided critical care services requiring my management, as noted below: Chart data review, documentation time, medication orders and management, vital sign assessments/reviewing monitor data, ordering and reviewing lab tests, ordering and interpreting/reviewing x-rays and diagnostic studies, care of the patient and discussion of the patient with the admitting physicians. NIH Stroke Scale NIHSS Time Completed NIHSS Time Completed: 17:50 NIH Stroke Scale Level of Consciousness: 0-Alert Orientation Questions: 0-Answers both correct Responds to Commands: 0-Both tasks correct Gaze Eye Movement: 0-Horizontal movement WNL Visual Dumont: 0-No visual field defect Facial Movement: 0-Normal Motor Functions Arm LEFT: 0-No drift Motor Functions Arm RIGHT: 0-No drift Motor Functions Leg LEFT: 0-No drift Motor Functions Leg RIGHT: 0-No drift Limb Ataxia: 0-No ataxia Sensory Loss: 0-No sensory loss Best Language: 0-Normal Articulation: 0-Normal Extinction or Inattention Sensory: 0-Absent Total: 0 Medical Decision Making MDM Narrative Medical decision making narrative: Patient with markedly elevated blood pressure improved on Cardene drip. She is completely asymptomatic without headache nausea vomiting blurry vision chest pain shortness of breath ataxia or lightheadedness. Head CT was obtained and was negative for acute intracranial process. She has had a recent thrombotic event for which she received TPa. Medically stable will admit for hypertensive urgency Medical Screen Exam Complete: Yes Emergency Medical Condition: Yes Lab Data Result diagrams: 10/07/18 05:24 10/07/18 05:24 Lab Results 10/06/18 10/06/18 10/06/18 Range/Units 18:15 18:15 18:15 WBC 8.1 (4.0-11.0) th/mm3 RBC 4.34 (4.00-5.30) mil/mm3 Hgb 13.8 (11.6-15.3) gm/dL Hct 39.8 (35.0-46.0) % MCV 91.8 (80.0-100.0) fL MCH 31.8 (27.0-34.0) pg MCHC 34.6 (32.0-36.0) % RDW 13.4 (11.6-17.2) % Plt Count 249 (150-450) th/mm3 MPV 7.5 (7.0-11.0) fL Neut % (Auto) 68.7 (16.0-70.0) % Lymph % (Auto) 19.8 (9.0-44.0) % [place] % (Auto) 9.4 H (0.0-8.0) % Eos % (Auto) 1.4 (0.0-4.0) % Baso % (Auto) 0.7 (0.0-2.0) % Neut # (Auto) 5.6 (1.8-7.7) th/mm3 Lymph # (Auto) 1.6 (1.0-4.8) th/mm3 [place] # (Auto) 0.8 (0.0-0.9) th/mm3 Eos # (Auto) 0.1 (0.0-0.4) th/mm3 Baso # (Auto) 0.1 (0.0-0.2) th/mm3 WBC Differential . Differential Comment Auto diff final PT 10.4 (9.8-11.6) sec INR 1.0 Ratio APTT 25.4 (23.4-31.7) sec Sodium 141 (136-145) meq/L Potassium 4.0 (3.5-5.1) meq/L Chloride 105 (98-107) meq/L Carbon Dioxide 30.3 (21.0-32.0) meq/L Anion Gap 6 (5-15) meq/L BUN 20 H (7-18) mg/dL Creatinine 1.36 H (0.50-1.00) mg/dL Estimated GFR 38 L (>89) mL/min POC Glucose (68-110) mg/dl Random Glucose 146 H (74-106) mg/dL Calcium 8.6 (8.5-10.1) mg/dL Magnesium (1.5-2.5) mg/dL Total Bilirubin (0.2-1.0) mg/dL AST (15-37) U/L ALT (10-53) U/L Alkaline Phosphatase (45-117) U/L B-Natriuretic Peptide (0-100) pg/mL Total Protein (6.4-8.2) g/dL Albumin (3.4-5.0) g/dL Nasal Screen MRSA (PCR) (Negative) 10/06/18 10/06/18 10/06/18 Range/Units 18:15 23:39 23:40 WBC (4.0-11.0) th/mm3 RBC (4.00-5.30) mil/mm3 Hgb (11.6-15.3) gm/dL Hct (35.0-46.0) % MCV (80.0-100.0) fL MCH (27.0-34.0) pg MCHC (32.0-36.0) % RDW (11.6-17.2) % Plt Count (150-450) th/mm3 MPV (7.0-11.0) fL Neut % (Auto) (16.0-70.0) % Lymph % (Auto) (9.0-44.0) % [place] % (Auto) (0.0-8.0) % Eos % (Auto) (0.0-4.0) % Baso % (Auto) (0.0-2.0) % Neut # (Auto) (1.8-7.7) th/mm3 Lymph # (Auto) (1.0-4.8) th/mm3 [place] # (Auto) (0.0-0.9) th/mm3 Eos # (Auto) (0.0-0.4) th/mm3 Baso # (Auto) (0.0-0.2) th/mm3 WBC Differential Differential Comment PT (9.8-11.6) sec INR Ratio APTT (23.4-31.7) sec Sodium (136-145) meq/L Potassium (3.5-5.1) meq/L Chloride (98-107) meq/L Carbon Dioxide (21.0-32.0) meq/L Anion Gap (5-15) meq/L BUN (7-18) mg/dL Creatinine (0.50-1.00) mg/dL Estimated GFR (>89) mL/min POC Glucose 131 H (68-110) mg/dl Random Glucose (74-106) mg/dL Calcium (8.5-10.1) mg/dL Magnesium (1.5-2.5) mg/dL Total Bilirubin (0.2-1.0) mg/dL AST (15-37) U/L ALT (10-53) U/L Alkaline Phosphatase (45-117) U/L B-Natriuretic Peptide 67 (0-100) pg/mL Total Protein (6.4-8.2) g/dL Albumin (3.4-5.0) g/dL Nasal Screen MRSA (PCR) Not detected (Negative) 11/20/18 11/20/18 Range/Units 05:24 05:24 WBC 6.6 (4.0-11.0) th/mm3 RBC 3.93 L (4.00-5.30) mil/mm3 Hgb 12.5 (11.6-15.3) gm/dL Hct 35.7 (35.0-46.0) % MCV 90.9 (80.0-100.0) fL MCH 31.7 (27.0-34.0) pg MCHC 34.9 (32.0-36.0) % RDW 13.1 (11.6-17.2) % Plt Count 195 (150-450) th/mm3 MPV 8.0 (7.0-11.0) fL Neut % (Auto) 69.1 (16.0-70.0) % Lymph % (Auto) 19.4 (9.0-44.0) % [place] % (Auto) 8.3 H (0.0-8.0) % Eos % (Auto) 1.9 (0.0-4.0) % Baso % (Auto) 1.3 (0.0-2.0) % Neut # (Auto) 4.6 (1.8-7.7) th/mm3 Lymph # (Auto) 1.3 (1.0-4.8) th/mm3 [place] # (Auto) 0.5 (0.0-0.9) th/mm3 Eos # (Auto) 0.1 (0.0-0.4) th/mm3 Baso # (Auto) 0.1 (0.0-0.2) th/mm3 WBC Differential . Differential Comment Auto diff final PT (9.8-11.6) sec INR Ratio APTT (23.4-31.7) sec Sodium 141 (136-145) meq/L Potassium 4.0 (3.5-5.1) meq/L Chloride 108 H (98-107) meq/L Carbon Dioxide 25.1 (21.0-32.0) meq/L Anion Gap 8 (5-15) meq/L BUN 18 (7-18) mg/dL Creatinine 1.17 H (0.50-1.00) mg/dL Estimated GFR 45 L (>89) mL/min POC Glucose (68-110) mg/dl Random Glucose 132 H (74-106) mg/dL Calcium 8.5 (8.5-10.1) mg/dL Magnesium 2.2 (1.5-2.5) mg/dL Total Bilirubin 0.3 (0.2-1.0) mg/dL AST 17 (15-37) U/L ALT 12 (10-53) U/L Alkaline Phosphatase 156 H (45-117) U/L B-Natriuretic Peptide (0-100) pg/mL Total Protein 6.3 L (6.4-8.2) g/dL Albumin 2.8 L (3.4-5.0) g/dL Nasal Screen MRSA (PCR) (Negative) Imaging Data Radiologist's impression: Chest X-Ray 10/06/18 18:10 CONCLUSION: Minimal prominence of interstitium likely related to underlying interstitial disease or mild edema. Head CT 10/06/18 18:10 CONCLUSION: 1. No acute abnormality seen. 2. Decreased density seen throughout the cerebral white matter likely related to small vessel ischemic change. . Discharge Plan Discharge Disposition Patient Disposition: 30 Still Patient Discharge Details Diagnosis: Asymptomatic hypertensive urgency, History of CVA (cerebrovascular accident) without residual deficits Physicians Team ED Provider: Ezequiel Logan Primary Care Provider: UNKNOWN, Attending Provider: Cliff Phipps Other Providers: John Meeks Discharge Interventions Interventions: ED Discharge Assessment Last Done: 10/06/18 23:25 Vital Signs Last Done: 10/06/18 18:52 Status ED Status: Left Department Discharge Information Discharge Date/Time: 10/06/18 23:26
[2018-10-06] MEDS: niCARdipine 20mg/NS Premix 20 MG/200 ML PIGGYBACK IV.SIG PRN (18:29)
[2018-10-06 18:52] LABS: Baso # (Auto) 0.1 th/mm3 (0.0-0.2); Baso % (Auto) 0.7 % (0.0-2.0); Eos # (Auto) 0.1 th/mm3 (0.0-0.4); Eos % (Auto) 1.4 % (0.0-4.0); Hematocrit 39.8 % (35.0-46.0); Hemoglobin 13.8 gm/dL (11.6-15.3); Lymph # (Auto) 1.6 th/mm3 (1.0-4.8); Lymph % (Auto) 19.8 % (9.0-44.0); Mean Corpuscular HGB Conc 34.6 % (32.0-36.0); Mean Corpuscular Hemoglobin 31.8 pg (27.0-34.0); Mean Corpuscular Volume 91.8 fL (80.0-100.0); Mean Platelet Volume 7.5 fL (7.0-11.0); Mono # (Auto) 0.8 th/mm3 (0.0-0.9); Mono % (Auto) 9.4 % (0.0-8.0); Neut # (Auto) 5.6 th/mm3 (1.8-7.7); Neut % (Auto) 68.7 % (16.0-70.0); Platelet Count 249 th/mm3 (150-450); Red Blood Count 4.34 mil/mm3 (4.00-5.30); Red Cell Distribution Width 13.4 % (11.6-17.2); White Blood Count 8.1 th/mm3 (4.0-11.0)
--- NOTE | 2018-10-06 18:52 | CT ---
EXAM DATE: 10/06/2018 6:49 PM EST AGE/SEX: 78 years / Female INDICATIONS: Elevated blood pressure CLINICAL DATA: This is the patient's initial encounter. Patient reports that signs and symptoms have been present for 1 day and indicates a pain score of 0/10. MEDICAL/SURGICAL HISTORY: Alzheimer's disease. Cerebrovascular disease. Hypertension. None. RADIATION DOSE: 56.35 CTDI (mGy) COMPARISON: [facility] [place], 09/19/2018. . TECHNIQUE: CT of the head without contrast. Using automated exposure control and adjustment of the mA and/or kV according to patient size, radiation dose was kept as low as reasonably achievable to ob tain optimal diagnostic quality images. DICOM format image data is available electronically for revi ew and comparison. FINDINGS: Cerebrum: The ventricles are normal for age. There is diffuse decreased attenuation within the cere bral white matter. No evidence of midline shift, mass lesion, hemorrhage or acute infarction. No ext raaxial fluid collections are seen. Posterior Fossa: The cerebellum and brainstem are intact. The 4th ventricle is midline. The cerebe llopontine angle is unremarkable. Extracranial: The visualized portion of the orbits is intact. Skull: The calvaria is intact. No evidence of skull fracture. CONCLUSION: 1. No acute abnormality seen. 2. Decreased density seen throughout the cerebral white matter likely related to small vessel ischem ic change. . Electronically signed by: Declan Olmstead MD 10/06/2018 6:51 PM EST
--- NOTE | 2018-10-06 18:53 | XR ---
EXAM DATE: 10/06/2018 6:37 PM EST AGE/SEX: 78 years / Female INDICATIONS: Chest discomfort. CLINICAL DATA: This is the patient's initial encounter. Patient reports that signs and symptoms have been present for 1 day and indicates a pain score of 1/10. MEDICAL/SURGICAL HISTORY: Hypertension. Stroke. . Loop recorder. COMPARISON: [facility] – [place], CHEST 1V SINGLE AP, 09/18/2018. . FINDINGS: The heart size is normal. There is minimal prominence of interstitium. There appears to be a loop rec order of the left chest. A significant effusion is not seen. There is a chronic deformity from prior fracture at the right proximal humerus. CONCLUSION: Minimal prominence of interstitium likely related to underlying interstitial disease or mild edema. Electronically signed by: Declan Olmstead MD 10/06/2018 6:52 PM EST
[2018-10-06 18:59] LABS: Activated Partial Thrombo Time 25.4 sec (23.4-31.7); Prothrombin Time 10.4 sec (9.8-11.6)
[2018-10-06 19:17] LABS: Calcium 8.6 mg/dL (8.5-10.1); Carbon Dioxide 30.3 meq/L (21.0-32.0)
[2018-10-06] MEDS ORDERED: Bisacodyl 10 MG Supp RECTAL PRN (21:07)
[2018-10-07] MEDS: niCARdipine 20mg/NS Premix 20 MG/200 ML PIGGYBACK IV.SIG PRN ×3 (00:09→19:50)
[2018-10-07] MEDS ORDERED: Chlorhexidine Gluconate 2% 1 Pack (2 Cloths) TOPICAL PRN (04:00)
[2018-10-07] MEDS: Chlorhexidine Gluconate 2% 1 Pack (2 Cloths) TOPICAL SCH (04:32)
[2018-10-07 06:05] LABS: Baso # (Auto) 0.1 th/mm3 (0.0-0.2); Baso % (Auto) 1.3 % (0.0-2.0); Eos # (Auto) 0.1 th/mm3 (0.0-0.4); Eos % (Auto) 1.9 % (0.0-4.0); Hematocrit 35.7 % (35.0-46.0); Hemoglobin 12.5 gm/dL (11.6-15.3); Lymph # (Auto) 1.3 th/mm3 (1.0-4.8); Lymph % (Auto) 19.4 % (9.0-44.0); Mean Corpuscular HGB Conc 34.9 % (32.0-36.0); Mean Corpuscular Hemoglobin 31.7 pg (27.0-34.0); Mean Corpuscular Volume 90.9 fL (80.0-100.0); Mono # (Auto) 0.5 th/mm3 (0.0-0.9); Mono % (Auto) 8.3 % (0.0-8.0); Neut # (Auto) 4.6 th/mm3 (1.8-7.7); Neut % (Auto) 69.1 % (16.0-70.0); Platelet Count 195 th/mm3 (150-450); Red Blood Count 3.93 mil/mm3 (4.00-5.30); Red Cell Distribution Width 13.1 % (11.6-17.2); White Blood Count 6.6 th/mm3 (4.0-11.0)
[2018-10-07 06:30] LABS: Albumin 2.8 g/dL (3.4-5.0); Anion Gap 8 meq/L (5-15); Aspartate Aminotransferase 17 U/L (15-37); Blood Urea Nitrogen 18 mg/dL (7-18); Calcium 8.5 mg/dL (8.5-10.1); Carbon Dioxide 25.1 meq/L (21.0-32.0); Chloride 108 meq/L (98-107); Glomerular Filtration Rate 45 mL/min (>89); Glucose,Random 132 mg/dL (74-106); Magnesium 2.2 mg/dL (1.5-2.5); Sodium 141 meq/L (136-145)
[2018-10-07 06:31] LABS: Alanine Aminotransferase 12 U/L (10-53)
[2018-10-07 06:34] LABS: Alkaline Phosphatase 156 U/L (45-117); Total Protein 6.3 g/dL (6.4-8.2)
[2018-10-07] MEDS ORDERED: Famotidine 20 MG Tablet PO SCH (09:00)
[2018-10-07] MEDS: Famotidine PF Inj 20 MG/2 ML Vial IV.PUSH SCH ×2 (09:43→20:45)
[2018-10-07] MEDS: Senna/Docusate Sodium 8.6/50 MG Tablet PO SCH ×2 (09:43→20:45)
[2018-10-07] MEDS: amLODIPine 10 MG Tablet PO SCH (09:45)
--- NOTE | 2018-10-07 11:09 | P.HPFP ---
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 This includes certification that hospital inpatient services are reasonable and necessary and in the case of services not specified as inpatient-only under 42 CFR 419.22(n), that they are appropriately provided as inpatient services in accordance to with the 2-midnight benchmark under 43 CFR 412.3(e) Estimated Total Length of Stay (Days): 5 Plans for Post Hospital Care: SNF Review of Systems Neurologic: Reports memory loss PMFSH - History History Provided By: Patient - Medical History Medical History: Medical History (Last Reviewed 10/07/18 @ 07:52 by Ezequiel Logan DO) Stroke Alzheimer's disease Dementia Hypertension Kidney disease - Tobacco History Second Hand Smoke Exposure: No Smoking Status: Never smoker - Alcohol History How Often Do You Have a Drink Containing Alcohol: Never - Substance Use History Substance History: No History of Abuse - Travel History Recent Travel in the [place] Within the Last 8 Weeks: No Recent Travel Out of the Country Within the Last 8 Weeks: No - Immunization History Tetanus Immunization: Unsure Hx Influenza Vaccine This Season: Unable to Assess Medications and Allergies Active Medications: Active Medications Al Hydroxide/Mg Hydroxide (Milk Of Khanh Conley) 30 ml PO Q12H PRN PRN Reason: Mild Constipation Amlodipine Besylate (Norvasc) 10 mg PO DAILY [facility] Last Admin: 10/07/18 09:45 Dose: 10 mg Bisacodyl (Dulcolax Supp) 10 mg RECTAL DAILY PRN PRN Reason: SEVERE CONSITIPATION Chlorhexidine Gluconate (Chlorhexidine 2% Cloth) 3 pack TOPICAL DAILY@0400 [facility] Stop: 10/12/18 03:59 Last Admin: 10/07/18 04:32 Dose: 3 pack Chlorhexidine Gluconate (Chlorhexidine 2% Cloth) 3 pack TOPICAL DAILY@0400 PRN PRN Reason: Extra cloth needed Stop: 10/12/18 03:59 Famotidine (Pepcid) 10 mg PO BID [facility] Famotidine (Pepcid Pf Inj) 10 mg IV.PUSH Q12HR [facility] Last Admin: 10/07/18 09:43 Dose: 10 mg Nicardipine/Sodium Chloride (Cardene 20 Mg/Ns 200 Ml Premix) 20 mg in 200 mls @ 50 mls/hr IV.SIG TITRATE PRN; Protocol PRN Reason: Per Protocol Last Titration: 10/07/18 10:00 Dose: 0 mg/hr, 0 mls/hr Lactulose (Lactulose Liq) 30 ml PO DAILY PRN PRN Reason: SEVERE CONSITIPATION Senna/Docusate Sodium (Camila-Colace) 1 tab PO BID [facility] Last Admin: 10/07/18 09:43 Dose: 1 tab Sennosides (Senokot) 17.2 mg PO Q12H PRN PRN Reason: Moderate Constipation Sodium Chloride (Ns Flush) 2 ml IV.FLUSH BID [facility] Last Admin: 10/07/18 09:44 Dose: 2 ml Sodium Chloride (Ns Flush) 2 ml IV.FLUSH PRN PRN PRN Reason: FLUSH AFTER USING IV ACCESS Allergies Allergy/AdvReac Type Severity Reaction Status Date / Time ampicillin Allergy Intermediate DIARRHEA Verified 10/06/18 17:08 Home Medications Medication Instructions Recorded Confirmed Type amlodipine 10 mg PO DAILY 09/18/18 10/06/18 History glipizide 5 mg PO DAILY 09/18/18 10/06/18 History linagliptin [Tradjenta] 5 mg PO DAILY 09/18/18 10/06/18 History omeprazole 20 mg PO HS 09/18/18 10/06/18 History Exam Vital signs: Vital Signs 10/06/18 17:05 10/06/18 17:57 10/06/18 18:31 Temperature 97.6 F Pulse Rate 85 70 67 Respiratory Rate 18 19 20 Blood Pressure 228/107 H 223/98 H 202/92 H Pulse Oximetry 98 95 98 10/06/18 18:52 10/06/18 19:39 10/06/18 20:24 Temperature Pulse Rate 79 74 74 Respiratory Rate 23 20 Blood Pressure 163/71 H 163/64 H 150/65 H Pulse Oximetry 97 96 97 10/06/18 21:09 10/06/18 21:24 10/06/18 21:54 Temperature Pulse Rate 82 74 86 Respiratory Rate 21 18 20 Blood Pressure 154/68 H 152/67 H 154/72 H Pulse Oximetry 97 96 96 10/06/18 22:22 10/06/18 22:51 10/06/18 22:57 Temperature Pulse Rate 72 77 75 Respiratory Rate 20 25 H 20 Blood Pressure 115/59 L 118/64 148/55 H Pulse Oximetry 96 96 98 10/06/18 23:19 10/06/18 23:21 10/06/18 23:30 Temperature 97.7 F Pulse Rate 79 81 Respiratory Rate 22 31 H Blood Pressure 142/63 H 165/66 H Pulse Oximetry 96 96 10/06/18 23:47 10/06/18 23:56 10/07/18 00:00 Temperature Pulse Rate 74 80 76 Respiratory Rate 26 H 27 H 23 Blood Pressure 126/60 151/65 H Pulse Oximetry 95 94 L 10/07/18 00:11 10/07/18 00:26 10/07/18 00:29 Temperature Pulse Rate 75 72 Respiratory Rate 16 17 Blood Pressure 141/57 H 121/58 L Pulse Oximetry 90 L 95 97 10/07/18 00:41 10/07/18 00:56 10/07/18 01:00 Temperature Pulse Rate 72 80 76 Respiratory Rate 19 24 18 Blood Pressure 126/57 L 125/60 Pulse Oximetry 95 95 96 10/07/18 01:11 10/07/18 01:26 10/07/18 01:41 Temperature Pulse Rate 77 77 73 Respiratory Rate 19 19 18 Blood Pressure 117/58 L 106/53 L 113/57 L Pulse Oximetry 96 95 97 10/07/18 01:44 10/07/18 01:56 10/07/18 02:00 Temperature Pulse Rate 81 83 78 Respiratory Rate 22 23 Blood Pressure 119/58 L Pulse Oximetry 97 93 L 10/07/18 02:11 10/07/18 02:26 10/07/18 02:41 Temperature Pulse Rate 79 76 70 Respiratory Rate 19 25 H 17 Blood Pressure 111/57 L 130/60 118/56 L Pulse Oximetry 93 L 96 95 10/07/18 02:56 10/07/18 03:00 10/07/18 03:11 Temperature Pulse Rate 70 70 76 Respiratory Rate 16 18 24 Blood Pressure 115/56 L 124/59 L Pulse Oximetry 96 96 96 10/07/18 03:26 10/07/18 03:41 10/07/18 03:56 Temperature Pulse Rate 71 72 69 Respiratory Rate 18 17 19 Blood Pressure 121/59 L 129/57 L 127/61 Pulse Oximetry 96 95 95 10/07/18 04:00 10/07/18 04:11 10/07/18 04:26 Temperature Pulse Rate 69 68 68 Respiratory Rate 18 16 19 Blood Pressure 131/59 L 130/58 L Pulse Oximetry 95 95 94 L 10/07/18 04:41 10/07/18 04:56 10/07/18 05:00 Temperature Pulse Rate 76 69 67 Respiratory Rate 23 16 18 Blood Pressure 129/60 138/62 Pulse Oximetry 95 95 95 10/07/18 05:11 10/07/18 05:24 10/07/18 05:33 Temperature Pulse Rate 64 79 Respiratory Rate 18 25 H Blood Pressure 132/63 169/69 H Pulse Oximetry 95 10/07/18 05:41 10/07/18 05:56 10/07/18 06:00 Temperature Pulse Rate 75 72 75 Respiratory Rate 20 19 12 Blood Pressure 150/62 H 153/83 H Pulse Oximetry 96 95 95 10/07/18 06:11 10/07/18 06:26 10/07/18 06:41 Temperature Pulse Rate 68 65 68 Respiratory Rate 19 16 17 Blood Pressure 142/66 H 136/57 L 136/63 Pulse Oximetry 95 94 L 94 L 10/07/18 06:56 10/07/18 07:00 Temperature Pulse Rate 80 75 Respiratory Rate 29 H 23 Blood Pressure 127/78 Pulse Oximetry 95 96 Intake & Output 10/06/18 10/07/18 10/07/18 18:59 06:59 18:59 Intake Total 640 / 640 Output Total 100 / 100 Balance 540 / 540 Weight 72.575 kg 74.9 kg Intake: IV 400 / 400 Cardene 20 mg/NS 200 ml Premix 400 / 400 20 mg In 200 ml @ 5 MG/HR 50 mls/hr IV.SIG TITRATE PRN Rx#: [id number] Oral 240 / 240 Output: Urine 100 / 100 Other: Weight On Admission 74.9 kg - Constitutional no acute distress - Routine HEENT Exam Head: Present: normocephalic, atraumatic Eye: Present: EOMI, PERRL ENT: Present: mucous membranes moist - Routine Neck Exam Present: supple, full ROM - Routine Respiratory Exam Present: CTA bilaterally - Routine Cardiovascular Exam Present: RRR - Routine Abdominal Exam Present: soft, normoactive bowel sounds - Routine Neurological Exam marked memory deficit Results - Labs Result diagrams: 10/07/18 05:24 10/07/18 05:24 Abnormal lab results 10/06/18 10/06/18 10/06/18 Range/Units 18:15 18:15 23:39 RBC (4.00-5.30) mil/mm3 Wayne % (Auto) 9.4 H (0.0-8.0) % Chloride (98-107) meq/L BUN 20 H (7-18) mg/dL Creatinine 1.36 H (0.50-1.00) mg/dL Estimated GFR 38 L (>89) mL/min POC Glucose 131 H (68-110) mg/dl Random Glucose 146 H (74-106) mg/dL Alkaline Phosphatase (45-117) U/L Total Protein (6.4-8.2) g/dL Albumin (3.4-5.0) g/dL 10/07/18 10/07/18 Range/Units 05:24 05:24 RBC 3.93 L (4.00-5.30) mil/mm3 Wayne % (Auto) 8.3 H (0.0-8.0) % Chloride 108 H (98-107) meq/L BUN (7-18) mg/dL Creatinine 1.17 H (0.50-1.00) mg/dL Estimated GFR 45 L (>89) mL/min POC Glucose (68-110) mg/dl Random Glucose 132 H (74-106) mg/dL Alkaline Phosphatase 156 H (45-117) U/L Total Protein 6.3 L (6.4-8.2) g/dL Albumin 2.8 L (3.4-5.0) g/dL Short CBC 10/06/18 10/07/18 Range/Units 18:15 05:24 WBC 8.1 6.6 (4.0-11.0) th/mm3 Hgb 13.8 12.5 (11.6-15.3) gm/dL Hct 39.8 35.7 (35.0-46.0) % Plt Count 249 195 (150-450) th/mm3 BMP 10/06/18 10/07/18 18:15 05:24 Sodium 141 141 Potassium 4.0 4.0 Chloride 105 108 H Carbon Dioxide 30.3 25.1 BUN 20 H 18 Creatinine 1.36 H 1.17 H Calcium 8.6 8.5 Liver Function 10/07/18 Range/Units 05:24 Total Bilirubin 0.3 (0.2-1.0) mg/dL AST 17 (15-37) U/L ALT 12 (10-53) U/L Alkaline Phosphatase 156 H (45-117) U/L Albumin 2.8 L (3.4-5.0) g/dL - Imaging Impressions Chest X-Ray 10/06/18 18:10 CONCLUSION: Minimal prominence of interstitium likely related to underlying interstitial disease or mild edema. Head CT 10/06/18 18:10 CONCLUSION: 1. No acute abnormality seen. 2. Decreased density seen throughout the cerebral white matter likely related to small vessel ischemic change. . Caprini VTE Risk Assessment Caprini VTE Risk Assessment: Moderate/High Risk (score >= 2) Caprini Risk Assessment Model: Point Value = 1 Point Value = 2 Point Value = 3 Point Value = 5 Age 41-60 Minor surgery BMI > 25 kg/m2 Swollen legs Varicose veins or History of unexplained or recurrent spontaneous Oral contraceptives or hormone replacement Sepsis (< 1 month) Serious lung disease, including pneumonia (< 1 month) Abnormal pulmonary function Acute myocardial infarction Congestive heart failure (< 1 month) History of inflammatory bowel disease Medical patient at bed rest Age 61-74 Arthroscopic surgery Major open surgery (> 45 min) Laparoscopic surgery (> 45 min) Malignancy Confined to bed (> 72 hours) Immobilizing plaster cast Central venous access Age >= 75 History of VTE Family history of VTE Factor V Leiden Prothrombin [id number] Lupus anticoagulant Anticardiolipin antibodies Elevated serum homocysteine Heparin-induced thrombocytopenia Other congenital or acquired thrombophilia Stroke (< 1 month) Elective arthroplasty Hip, pelvis, or leg fracture Acute spinal cord injury (< 1 month) Prophylaxis Regimen: Total Risk Factor Score Risk Level Prophylaxis Regimen 0-1 Low Early ambulation 2 Moderate Order ONE of the following: *Sequential Compression Device (SCD) *Heparin 5000 units SQ BID 3-4 Higher Order ONE of the following medications: *Heparin 5000 units SQ TID *Enoxaparin/Lovenox 40 mg SQ daily (WT < 150 kg, CrCl > 30 mL/min) *Enoxaparin/Lovenox 30 mg SQ daily (WT < 150 kg, CrCl > 10-29 mL/min) *Enoxaparin/Lovenox 30 mg SQ BID (WT < 150 kg, CrCl > 30 mL/min) AND/OR *Sequential Compression Device (SCD) 5 or more Highest Order ONE of the following medications: *Heparin 5000 units SQ TID (Preferred with Epidurals) *Enoxaparin/Lovenox 40 mg SQ daily (WT < 150 kg, CrCl > 30 mL/min) *Enoxaparin/Lovenox 30 mg SQ daily (WT < 150 kg, CrCl > 10-29 mL/min) *Enoxaparin/Lovenox 30 mg SQ BID (WT < 150 kg, CrCl > 30 mL/min) AND *Sequential Compression Device (SCD) Assessment and Plan - Assessment (1) Hypertensive urgency Code(s): I16.0 - Hypertensive urgency Status: Acute - Assessment and Plan titrate bp meds avoid multiple daily dosing due to memory deficit Discharge Planning: snf H&P: Quality - VTE Deep Vein Thrombosis/Pulmonary Embolism Present on Admission: No
--- NOTE | 2018-10-07 13:22 | ECG ---
Date Performed: 10/06/2018 Time Performed: 17:58:38 PTAGE: 78 years EKG: Sinus rhythm WITH OCCASIONAL SUPRAVENTRICULAR PREMATURE COMPLEXES NONSPECIFIC T-WAVE ABNORMALITY BORDERLINE ECG S jessica the PREVIOUS TRACING , no significant change noted PREVIOUS TRACIN09/24/2018 07.17 DOCTOR: Trini Wright Interpretating Date/Time 10/07/2018 13:20:03
--- NOTE | 2018-10-07 15:53 | MB ---
cc: John Meeks MD DATE: 10/07/2018 HISTORY OF PRESENT ILLNESS: Lydia Carpenter is a very pleasant 78-year-old white female with a history of hypertension. She presented with severe hypertension to the emergency room. She has been forgetting to take her antihypertensive medications. She denies any chest pain or shortness of breath. She is on Cardene IV for blood pressure control. PAST MEDICAL HISTORY: Positive for dementia, Alzheimer disease, stroke, hypertension, chronic kidney disease. MEDICATIONS AT HOME: Include: 1. Omeprazole. 2. Tradjenta. 3. Glipizide 4. Amlodipine. ALLERGIES: AMPICILLIN. SOCIAL HISTORY: The patient does not smoke. She does not drink alcohol. FAMILY HISTORY: Negative for heart disease. REVIEW OF SYSTEMS: Otherwise negative. PHYSICAL EXAMINATION: VITAL SIGNS: Blood pressure 140/104, pulse 109 and regular. HEENT: Negative, 2+ carotid upstrokes, no bruits. LUNGS: Clear. HEART: Regular with no murmur or gallop. ABDOMEN: Soft. No bruits. EXTREMITIES: Trace edema, 2+ pulses peripheral pulses. NEUROLOGIC: Grossly nonfocal. LABORATORY DATA: EKG was reviewed and showed normal sinus rhythm, normal axis and intervals. No acute changes. LABORATORY DATA: Hemoglobin 12.5, potassium 4.0, creatinine 1.2, GFR 45. AST and ALT normal. BNP 67. DIAGNOSES: 1. Severe hypertension. 2. Dementia. 3. History of cerebrovascular accident. DISPOSITION: Ms. Carpenter will be monitored on telemetry. We will wean off Cardene and titrate her antihypertensive medications. I will follow her for cardiology during her hospitalization. We will also see her back in followup in our office after discharge. John Meeks MD OQ/ct , 03:28 PM , 03:36 PM MTDKelly
[2018-10-07] MEDS: Pantoprazole Sodium 20 MG DR Tablet PO SCH (20:45)
[2018-10-08] MEDS: niCARdipine 20mg/NS Premix 20 MG/200 ML PIGGYBACK IV.SIG PRN ×7 (00:04→22:53)
[2018-10-08] MEDS: Chlorhexidine Gluconate 2% 1 Pack (2 Cloths) TOPICAL SCH (03:34)
[2018-10-08 05:26] LABS: Calcium 8.4 mg/dL (8.5-10.1); Carbon Dioxide 22.7 meq/L (21.0-32.0); Potassium 4.2 meq/L (3.5-5.1)
[2018-10-08] MEDS: Famotidine PF Inj 20 MG/2 ML Vial IV.PUSH SCH ×2 (08:18→21:30)
[2018-10-08] MEDS: amLODIPine 10 MG Tablet PO SCH (08:19)
[2018-10-08] MEDS: glipiZIDE 5 MG Tablet PO SCH (08:19)
[2018-10-08] MEDS: Senna/Docusate Sodium 8.6/50 MG Tablet PO SCH ×2 (08:19→21:30)
[2018-10-08] MEDS ORDERED: amLODIPine 10 MG Tablet PO SCH (09:00)
[2018-10-08] MEDS ORDERED: LINAGLIPTIN 5 MG PO SCH (09:00)
[2018-10-08] MEDS ORDERED: [UNRECOGNIZED DRUG - OTHER] PO SCH (09:00)
--- NOTE | 2018-10-08 14:43 | P.PNFP ---
Subjective Interval history: pt bp improved off drips Results - Labs Result diagrams: 10/07/18 05:24 10/08/18 04:50 Abnormal lab results 10/07/18 10/07/18 10/08/18 Range/Units 17:24 23:50 04:50 Chloride 109 H (98-107) meq/L BUN 23 H (7-18) mg/dL Creatinine 1.20 H (0.50-1.00) mg/dL Estimated GFR 43 L (>89) mL/min POC Glucose 160 H 138 H (68-110) mg/dl Random Glucose 126 H (74-106) mg/dL Calcium 8.4 L (8.5-10.1) mg/dL BMP 10/08/18 04:50 Sodium 140 Potassium 4.2 Chloride 109 H Carbon Dioxide 22.7 BUN 23 H Creatinine 1.20 H Calcium 8.4 L Physical Exam Vital signs: Vital Signs 10/07/18 14:41 10/07/18 15:00 10/07/18 15:02 Temperature Pulse Rate 102 H 83 84 Respiratory Rate Blood Pressure 196/118 H 153/70 H Pulse Oximetry 97 96 10/07/18 15:29 10/07/18 15:45 10/07/18 16:05 Temperature Pulse Rate 76 88 85 Respiratory Rate 12 Blood Pressure 156/70 H 151/67 H Pulse Oximetry 95 96 10/07/18 16:15 10/07/18 16:30 10/07/18 16:44 Temperature Pulse Rate 80 80 116 H Respiratory Rate Blood Pressure 165/73 H 166/75 H Pulse Oximetry 95 95 10/07/18 18:28 10/07/18 18:29 10/07/18 19:01 Temperature Pulse Rate Respiratory Rate Blood Pressure 194/90 H 176/86 H Pulse Oximetry 96 10/07/18 19:02 10/07/18 19:04 10/07/18 19:15 Temperature Pulse Rate Respiratory Rate Blood Pressure 171/75 H Pulse Oximetry 95 96 10/07/18 19:31 10/07/18 19:45 10/07/18 20:00 Temperature 97.7 F Pulse Rate 63 Respiratory Rate 24 Blood Pressure 143/76 H 141/66 H 141/63 H Pulse Oximetry 97 10/07/18 20:15 10/07/18 20:34 10/07/18 20:45 Temperature Pulse Rate 67 66 67 Respiratory Rate 25 H Blood Pressure 131/62 141/63 H 137/65 Pulse Oximetry 95 96 92 L 10/07/18 21:00 10/07/18 21:03 10/07/18 21:33 Temperature Pulse Rate 72 75 74 Respiratory Rate 24 Blood Pressure 168/77 H 150/67 H Pulse Oximetry 96 94 L 10/07/18 21:45 10/07/18 22:00 10/07/18 22:15 Temperature Pulse Rate 57 L 60 59 L Respiratory Rate 18 15 19 Blood Pressure 124/58 L 136/61 125/60 Pulse Oximetry 96 95 96 10/07/18 22:30 10/07/18 22:45 10/07/18 23:00 Temperature Pulse Rate 60 62 64 Respiratory Rate 16 17 19 Blood Pressure 124/58 L 121/59 L 125/57 L Pulse Oximetry 94 L 94 L 96 10/07/18 23:15 10/07/18 23:30 10/07/18 23:45 Temperature Pulse Rate 65 68 73 Respiratory Rate 18 28 H 24 Blood Pressure 124/60 153/69 H 142/65 H Pulse Oximetry 95 97 97 10/08/18 00:00 10/08/18 00:15 10/08/18 00:30 Temperature 98.1 F Pulse Rate 66 67 63 Respiratory Rate 18 19 17 Blood Pressure 141/64 H 152/69 H 132/60 Pulse Oximetry 95 94 L 94 L 10/08/18 00:45 10/08/18 01:00 10/08/18 01:15 Temperature Pulse Rate 68 76 Respiratory Rate 20 Blood Pressure 140/64 151/65 H 132/58 L Pulse Oximetry 94 L 100 10/08/18 01:34 10/08/18 01:57 10/08/18 02:00 Temperature Pulse Rate 72 63 65 Respiratory Rate 24 18 32 H Blood Pressure 124/56 L 137/62 Pulse Oximetry 98 99 97 10/08/18 03:00 10/08/18 04:00 10/08/18 04:15 Temperature 98 F Pulse Rate 66 56 L 59 L Respiratory Rate 13 17 19 Blood Pressure 137/62 112/46 L 102/51 L Pulse Oximetry 96 97 96 10/08/18 04:30 10/08/18 04:31 10/08/18 04:50 Temperature Pulse Rate 56 L 55 L 72 Respiratory Rate 18 19 32 H Blood Pressure 169/72 H Pulse Oximetry 95 96 97 10/08/18 04:58 10/08/18 05:00 10/08/18 05:20 Temperature Pulse Rate 64 67 69 Respiratory Rate 20 32 H 24 Blood Pressure 167/68 H 148/65 H 148/65 H Pulse Oximetry 100 98 100 10/08/18 05:30 10/08/18 05:45 10/08/18 06:00 Temperature Pulse Rate 57 L 55 L 54 L Respiratory Rate 17 17 19 Blood Pressure 129/58 L 122/60 Pulse Oximetry 97 96 97 10/08/18 06:01 10/08/18 06:15 10/08/18 06:30 Temperature Pulse Rate 57 L 55 L 58 L Respiratory Rate 15 18 17 Blood Pressure 128/62 122/58 L Pulse Oximetry 96 96 96 10/08/18 06:45 10/08/18 07:00 10/08/18 07:15 Temperature Pulse Rate 59 L 54 L 54 L Respiratory Rate 16 16 17 Blood Pressure 111/54 L 120/58 L 116/56 L Pulse Oximetry 97 98 97 10/08/18 07:30 10/08/18 07:45 10/08/18 08:00 Temperature 97.7 F Pulse Rate 54 L 56 L 69 Respiratory Rate 17 17 23 Blood Pressure 115/56 L 105/53 L 147/65 H Pulse Oximetry 97 95 96 10/08/18 08:03 10/08/18 08:15 10/08/18 08:30 Temperature Pulse Rate 62 59 L 69 Respiratory Rate 12 17 29 H Blood Pressure 117/57 L 122/57 L 150/70 H Pulse Oximetry 96 98 99 10/08/18 08:33 10/08/18 08:35 10/08/18 08:45 Temperature Pulse Rate 68 67 62 Respiratory Rate 27 H 28 H 32 H Blood Pressure 173/74 H 170/74 H 148/68 H Pulse Oximetry 100 100 100 10/08/18 09:00 10/08/18 09:15 10/08/18 09:30 Temperature Pulse Rate 67 70 72 Respiratory Rate 31 H 34 H 29 H Blood Pressure 166/69 H Pulse Oximetry 96 97 10/08/18 09:46 10/08/18 09:47 10/08/18 09:51 Temperature Pulse Rate 72 66 Respiratory Rate 35 H Blood Pressure 161/73 H 154/68 H Pulse Oximetry 97 11/21/18 10:00 10/08/18 10:04 10/08/18 10:15 Temperature Pulse Rate 67 67 65 Respiratory Rate 31 H 37 H 29 H Blood Pressure 147/65 H Pulse Oximetry 97 96 98 10/08/18 10:19 10/08/18 10:33 10/08/18 10:34 Temperature Pulse Rate 65 72 67 Respiratory Rate 23 23 Blood Pressure 130/59 L 135/59 L Pulse Oximetry 97 97 10/08/18 10:45 10/08/18 10:49 10/08/18 11:00 Temperature Pulse Rate 65 66 69 Respiratory Rate 30 H 24 22 Blood Pressure 128/59 L Pulse Oximetry 99 98 99 10/08/18 11:04 10/08/18 11:15 10/08/18 11:19 Temperature Pulse Rate 64 64 61 Respiratory Rate 25 H 36 H 25 H Blood Pressure 126/64 129/64 Pulse Oximetry 98 97 98 10/08/18 11:30 10/08/18 11:34 10/08/18 11:45 Temperature Pulse Rate 65 64 69 Respiratory Rate 32 H 25 H 25 H Blood Pressure 133/63 Pulse Oximetry 98 98 98 10/08/18 11:49 10/08/18 12:00 10/08/18 12:04 Temperature 97.7 F Pulse Rate 67 66 65 Respiratory Rate 20 24 22 Blood Pressure 131/76 144/65 H Pulse Oximetry 98 97 99 10/08/18 12:15 10/08/18 12:19 10/08/18 12:30 Temperature Pulse Rate 65 73 67 Respiratory Rate 22 27 H 35 H Blood Pressure 145/70 H Pulse Oximetry 98 98 97 10/08/18 12:34 10/08/18 12:45 10/08/18 12:49 Temperature Pulse Rate 67 76 75 Respiratory Rate 27 H 40 H 38 H Blood Pressure 137/61 Pulse Oximetry 98 96 10/08/18 12:54 10/08/18 13:00 10/08/18 13:04 Temperature Pulse Rate 65 70 Respiratory Rate 28 H 29 H Blood Pressure 162/75 H 140/64 Pulse Oximetry 98 98 10/08/18 13:15 10/08/18 13:30 10/08/18 13:33 Temperature Pulse Rate 65 70 69 Respiratory Rate 26 H 28 H 29 H Blood Pressure 139/84 Pulse Oximetry 98 98 97 10/08/18 13:45 10/08/18 13:50 10/08/18 14:00 Temperature Pulse Rate 65 71 63 Respiratory Rate 24 47 H 15 Blood Pressure 140/65 143/65 H Pulse Oximetry 96 97 96 Intake & Output 10/07/18 10/08/18 10/08/18 18:59 06:59 18:59 Intake Total 420 / 420 840 / 840 200 / 200 Balance 420 / 420 840 / 840 200 / 200 Weight 74.1 kg Intake: IV 600 / 600 200 / 200 Cardene 20 mg/NS 200 ml Premix 600 / 600 200 / 200 20 mg In 200 ml @ 5 MG/HR 50 mls/hr IV.SIG TITRATE PRN Rx#: [id number] Oral 420 / 420 240 / 240 Other: # Voids 4 # Incontinent Voids 3 Date of Last Bowel Movement 10/06/18 10/08/18 - Constitutional no acute distress, mild distress - Routine HEENT Exam Head: Present: normocephalic - Routine Neck Exam Present: supple, full ROM - Routine Respiratory Exam Present: CTA bilaterally - Routine Cardiovascular Exam Present: RRR - Routine Abdominal Exam Present: soft, normoactive bowel sounds - Routine Neurological Exam Present: alert ( [id number] ) remaqins forgetful - Routine Psychiatric Exam Present: normal affect Assessment and Plan - Assessment (1) Hypertensive urgency Code(s): I16.0 - Hypertensive urgency Status: Acute - Assessment and Plan titrate bp meds avoid multiple daily dosing due to memory deficit Discharge Plannin/21 will need a simplified antihypertensivr regeime at discharge with as many once daily meds as possible
--- NOTE | 2018-10-08 15:10 | P.PNCA ---
Subjective Interval history: No CP or SOB, feels well, BP still elevated Medications and Allergies Active Medications: Active Medications Al Hydroxide/Mg Hydroxide (Milk Of Magnesia Liq) 30 ml PO Q12H PRN PRN Reason: Mild Constipation Amlodipine Besylate (Norvasc) 10 mg PO DAILY [facility] Last Admin: 10/08/18 08:19 Dose: 10 mg Atorvastatin Calcium (Lipitor) 20 mg PO HS [facility] Last Admin: 10/07/18 20:44 Dose: 20 mg Bisacodyl (Dulcolax Supp) 10 mg RECTAL DAILY PRN PRN Reason: SEVERE CONSITIPATION Chlorhexidine Gluconate (Chlorhexidine 2% Cloth) 3 pack TOPICAL DAILY@0400 [facility] Stop: 10/12/18 03:59 Last Admin: 10/08/18 03:34 Dose: 3 pack Chlorhexidine Gluconate (Chlorhexidine 2% Cloth) 3 pack TOPICAL DAILY@0400 PRN PRN Reason: Extra cloth needed Stop: 10/12/18 03:59 Clopidogrel Bisulfate (Plavix) 75 mg PO DAILY [facility] Last Admin: 10/08/18 08:19 Dose: 75 mg Famotidine (Pepcid) 10 mg PO BID [facility] Famotidine (Pepcid Pf Inj) 10 mg IV.PUSH Q12HR [facility] Last Admin: 10/08/18 08:18 Dose: 10 mg Glipizide (Glucotrol) 5 mg PO DAILYAC [facility] Last Admin: 10/08/18 08:19 Dose: 5 mg Nicardipine/Sodium Chloride (Cardene 20 Mg/Ns 200 Ml Premix) 20 mg in 200 mls @ 50 mls/hr IV.SIG TITRATE PRN; Protocol PRN Reason: Per Protocol Last Titration: 10/08/18 13:53 Dose: 0 mg/hr, 0 mls/hr Lactulose (Lactulose Liq) 30 ml PO DAILY PRN PRN Reason: SEVERE CONSITIPATION Losartan Potassium (Cozaar) 25 mg PO DAILY [facility] Last Admin: 10/08/18 08:19 Dose: 25 mg Metoprolol Succinate (Toprol Xl) 25 mg PO DAILY [facility] Last Admin: 10/08/18 08:19 Dose: 25 mg Pantoprazole Sodium (Protonix) 20 mg PO HS [facility] Last Admin: 10/07/18 20:45 Dose: 20 mg Ptownmed(Linagliptin ([Tradjenta] 5 Mg)) 0 each PO DAILY [facility] Senna/Docusate Sodium (Camila-Colace) 1 tab PO BID [facility] Last Admin: 10/08/18 08:19 Dose: 1 tab Sennosides (Senokot) 17.2 mg PO Q12H PRN PRN Reason: Moderate Constipation Sodium Chloride (Ns Flush) 2 ml IV.FLUSH BID [facility] Last Admin: 10/08/18 08:19 Dose: 2 ml Sodium Chloride (Ns Flush) 2 ml IV.FLUSH PRN PRN PRN Reason: FLUSH AFTER USING IV ACCESS Allergies Allergy/AdvReac Type Severity Reaction Status Date / Time ampicillin Allergy Intermediate DIARRHEA Verified 10/06/18 17:08 Home Medications Medication Instructions Recorded Confirmed Type amlodipine 10 mg PO DAILY 09/18/18 10/06/18 History glipizide 5 mg PO DAILY 09/18/18 10/06/18 History linagliptin [Tradjenta] 5 mg PO DAILY 09/18/18 10/06/18 History omeprazole 20 mg PO HS 09/18/18 10/06/18 History Physical Exam Vital signs: Vital Signs 10/07/18 15:29 10/07/18 15:45 10/07/18 16:05 Temperature Pulse Rate 76 88 85 Respiratory Rate 12 Blood Pressure 156/70 H 151/67 H Pulse Oximetry 95 96 10/07/18 16:15 10/07/18 16:30 10/07/18 16:44 Temperature Pulse Rate 80 80 116 H Respiratory Rate Blood Pressure 165/73 H 166/75 H Pulse Oximetry 95 95 10/07/18 18:28 10/07/18 18:29 10/07/18 19:01 Temperature Pulse Rate Respiratory Rate Blood Pressure 194/90 H 176/86 H Pulse Oximetry 96 10/07/18 19:02 10/07/18 19:04 10/07/18 19:15 Temperature Pulse Rate Respiratory Rate Blood Pressure 171/75 H Pulse Oximetry 95 96 10/07/18 19:31 10/07/18 19:45 10/07/18 20:00 Temperature 97.7 F Pulse Rate 63 Respiratory Rate 24 Blood Pressure 143/76 H 141/66 H 141/63 H Pulse Oximetry 97 10/07/18 20:15 10/07/18 20:34 10/07/18 20:45 Temperature Pulse Rate 67 66 67 Respiratory Rate 25 H Blood Pressure 131/62 141/63 H 137/65 Pulse Oximetry 95 96 92 L 10/07/18 21:00 10/07/18 21:03 10/07/18 21:33 Temperature Pulse Rate 72 75 74 Respiratory Rate 24 Blood Pressure 168/77 H 150/67 H Pulse Oximetry 96 94 L 10/07/18 21:45 10/07/18 22:00 10/07/18 22:15 Temperature Pulse Rate 57 L 60 59 L Respiratory Rate 18 15 19 Blood Pressure 124/58 L 136/61 125/60 Pulse Oximetry 96 95 96 10/07/18 22:30 10/07/18 22:45 10/07/18 23:00 Temperature Pulse Rate 60 62 64 Respiratory Rate 16 17 19 Blood Pressure 124/58 L 121/59 L 125/57 L Pulse Oximetry 94 L 94 L 96 10/07/18 23:15 10/07/18 23:30 10/07/18 23:45 Temperature Pulse Rate 65 68 73 Respiratory Rate 18 28 H 24 Blood Pressure 124/60 153/69 H 142/65 H Pulse Oximetry 95 97 97 10/08/18 00:00 10/08/18 00:15 10/08/18 00:30 Temperature 98.1 F Pulse Rate 66 67 63 Respiratory Rate 18 19 17 Blood Pressure 141/64 H 152/69 H 132/60 Pulse Oximetry 95 94 L 94 L 10/08/18 00:45 10/08/18 01:00 10/08/18 01:15 Temperature Pulse Rate 68 76 Respiratory Rate 20 Blood Pressure 140/64 151/65 H 132/58 L Pulse Oximetry 94 L 100 10/08/18 01:34 10/08/18 01:57 10/08/18 02:00 Temperature Pulse Rate 72 63 65 Respiratory Rate 24 18 32 H Blood Pressure 124/56 L 137/62 Pulse Oximetry 98 99 97 10/08/18 03:00 10/08/18 04:00 10/08/18 04:15 Temperature 98 F Pulse Rate 66 56 L 59 L Respiratory Rate 13 17 19 Blood Pressure 137/62 112/46 L 102/51 L Pulse Oximetry 96 97 96 10/08/18 04:30 10/08/18 04:31 10/08/18 04:50 Temperature Pulse Rate 56 L 55 L 72 Respiratory Rate 18 19 32 H Blood Pressure 169/72 H Pulse Oximetry 95 96 97 10/08/18 04:58 10/08/18 05:00 10/08/18 05:20 Temperature Pulse Rate 64 67 69 Respiratory Rate 20 32 H 24 Blood Pressure 167/68 H 148/65 H 148/65 H Pulse Oximetry 100 98 100 10/08/18 05:30 10/08/18 05:45 10/08/18 06:00 Temperature Pulse Rate 57 L 55 L 54 L Respiratory Rate 17 17 19 Blood Pressure 129/58 L 122/60 Pulse Oximetry 97 96 97 10/08/18 06:01 10/08/18 06:15 10/08/18 06:30 Temperature Pulse Rate 57 L 55 L 58 L Respiratory Rate 15 18 17 Blood Pressure 128/62 122/58 L Pulse Oximetry 96 96 96 10/08/18 06:45 10/08/18 07:00 10/08/18 07:15 Temperature Pulse Rate 59 L 54 L 54 L Respiratory Rate 16 16 17 Blood Pressure 111/54 L 120/58 L 116/56 L Pulse Oximetry 97 98 97 10/08/18 07:30 10/08/18 07:45 10/08/18 08:00 Temperature 97.7 F Pulse Rate 54 L 56 L 69 Respiratory Rate 17 17 23 Blood Pressure 115/56 L 105/53 L 147/65 H Pulse Oximetry 97 95 96 10/08/18 08:03 10/08/18 08:15 10/08/18 08:30 Temperature Pulse Rate 62 59 L 69 Respiratory Rate 12 17 29 H Blood Pressure 117/57 L 122/57 L 150/70 H Pulse Oximetry 96 98 99 10/08/18 08:33 10/08/18 08:35 10/08/18 08:45 Temperature Pulse Rate 68 67 62 Respiratory Rate 27 H 28 H 32 H Blood Pressure 173/74 H 170/74 H 148/68 H Pulse Oximetry 100 100 100 10/08/18 09:00 10/08/18 09:15 10/08/18 09:30 Temperature Pulse Rate 67 70 72 Respiratory Rate 31 H 34 H 29 H Blood Pressure 166/69 H Pulse Oximetry 96 97 10/08/18 09:46 10/08/18 09:47 10/08/18 09:51 Temperature Pulse Rate 72 66 Respiratory Rate 35 H Blood Pressure 161/73 H 154/68 H Pulse Oximetry 97 10/08/18 10:00 10/08/18 10:04 10/08/18 10:15 Temperature Pulse Rate 67 67 65 Respiratory Rate 31 H 37 H 29 H Blood Pressure 147/65 H Pulse Oximetry 97 96 98 10/08/18 10:19 10/08/18 10:33 10/08/18 10:34 Temperature Pulse Rate 65 72 67 Respiratory Rate 23 23 Blood Pressure 130/59 L 135/59 L Pulse Oximetry 97 97 10/08/18 10:45 10/08/18 10:49 10/08/18 11:00 Temperature Pulse Rate 65 66 69 Respiratory Rate 30 H 24 22 Blood Pressure 128/59 L Pulse Oximetry 99 98 99 10/08/18 11:04 10/08/18 11:15 10/08/18 11:19 Temperature Pulse Rate 64 64 61 Respiratory Rate 25 H 36 H 25 H Blood Pressure 126/64 129/64 Pulse Oximetry 98 97 98 10/08/18 11:30 10/08/18 11:34 10/08/18 11:45 Temperature Pulse Rate 65 64 69 Respiratory Rate 32 H 25 H 25 H Blood Pressure 133/63 Pulse Oximetry 98 98 98 10/08/18 11:49 10/08/18 12:00 10/08/18 12:04 Temperature 97.7 F Pulse Rate 67 66 65 Respiratory Rate 20 24 22 Blood Pressure 131/76 144/65 H Pulse Oximetry 98 97 99 10/08/18 12:15 10/08/18 12:19 10/08/18 12:30 Temperature Pulse Rate 65 73 67 Respiratory Rate 22 27 H 35 H Blood Pressure 145/70 H Pulse Oximetry 98 98 97 10/08/18 12:34 10/08/18 12:45 10/08/18 12:49 Temperature Pulse Rate 67 76 75 Respiratory Rate 27 H 40 H 38 H Blood Pressure 137/61 Pulse Oximetry 98 96 10/08/18 12:54 10/08/18 13:00 10/08/18 13:04 Temperature Pulse Rate 65 70 Respiratory Rate 28 H 29 H Blood Pressure 162/75 H 140/64 Pulse Oximetry 98 98 10/08/18 13:15 10/08/18 13:30 10/08/18 13:33 Temperature Pulse Rate 65 70 69 Respiratory Rate 26 H 28 H 29 H Blood Pressure 139/84 Pulse Oximetry 98 98 97 11/21/18 13:45 10/08/18 13:50 10/08/18 14:00 Temperature Pulse Rate 65 71 63 Respiratory Rate 24 47 H 15 Blood Pressure 140/65 143/65 H Pulse Oximetry 96 97 96 10/08/18 14:15 10/08/18 14:30 10/08/18 14:38 Temperature Pulse Rate 58 L 66 70 Respiratory Rate 18 26 H 20 Blood Pressure 144/65 H 141/65 H Pulse Oximetry 96 95 97 10/08/18 14:45 10/08/18 14:46 10/08/18 14:47 Temperature Pulse Rate 69 69 Respiratory Rate 22 20 Blood Pressure 189/77 H 185/77 H Pulse Oximetry 96 97 10/08/18 15:00 Temperature Pulse Rate 60 Respiratory Rate 19 Blood Pressure 208/82 H Pulse Oximetry 96 Intake & Output 10/07/18 10/08/18 10/08/18 18:59 06:59 18:59 Intake Total 420 / 420 840 / 840 200 / 200 Balance 420 / 420 840 / 840 200 / 200 Weight 163 lb 5.8 oz Intake: IV 600 / 600 200 / 200 Cardene 20 mg/NS 200 ml Premix 600 / 600 200 / 200 20 mg In 200 ml @ 5 MG/HR 50 mls/hr IV.SIG TITRATE PRN Rx#: [id number] Oral 420 / 420 240 / 240 Other: # Voids 4 # Incontinent Voids 3 Date of Last Bowel Movement 10/06/18 10/08/18 Narrative: In NAD lungs clear cor reg abd soft no edema neuro grossly intact Results 10/07/18 05:24 10/08/18 04:50 Cardiac Enzymes 10/06/18 10/07/18 Range/Units 18:15 05:24 AST 17 (15-37) U/L B-Natriuretic Peptide 67 (0-100) pg/mL Coagulation 10/06/18 10/06/18 Range/Units 18:15 18:15 PT 10.4 (9.8-11.6) sec APTT 25.4 (23.4-31.7) sec B-Natriuretic Peptide 67 (0-100) pg/mL CBC 10/06/18 10/07/18 Range/Units 18:15 05:24 WBC 8.1 6.6 (4.0-11.0) th/mm3 RBC 4.34 3.93 L (4.00-5.30) mil/mm3 Hgb 13.8 12.5 (11.6-15.3) gm/dL Hct 39.8 35.7 (35.0-46.0) % Plt Count 249 195 (150-450) th/mm3 Neut # (Auto) 5.6 4.6 (1.8-7.7) th/mm3 Lymph # (Auto) 1.6 1.3 (1.0-4.8) th/mm3 Irwin # (Auto) 0.8 0.5 (0.0-0.9) th/mm3 Eos # (Auto) 0.1 0.1 (0.0-0.4) th/mm3 Baso # (Auto) 0.1 0.1 (0.0-0.2) th/mm3 Comprehensive Metabolic Panel 10/06/18 10/07/18 10/08/18 Range/Units 18:15 05:24 04:50 Sodium 141 141 140 (136-145) meq/L Potassium 4.0 4.0 4.2 (3.5-5.1) meq/L Chloride 105 108 H 109 H (98-107) meq/L Carbon Dioxide 30.3 25.1 22.7 (21.0-32.0) meq/L BUN 20 H 18 23 H (7-18) mg/dL Creatinine 1.36 H 1.17 H 1.20 H (0.50-1.00) mg/dL Calcium 8.6 8.5 8.4 L (8.5-10.1) mg/dL AST 17 (15-37) U/L ALT 12 (10-53) U/L Alkaline Phosphatase 156 H (45-117) U/L Total Protein 6.3 L (6.4-8.2) g/dL Albumin 2.8 L (3.4-5.0) g/dL Intake and Output 10/08/18 10/08/18 10/08/18 06:59 14:59 22:59 Intake Total 640 / 640 200 / 200 Balance 640 / 640 200 / 200 Intake: IV 400 / 400 200 / 200 Cardene 20 mg/NS 200 ml Premix 400 / 400 200 / 200 20 mg In 200 ml @ 5 MG/HR 50 mls/hr IV.SIG TITRATE PRN Rx#: [id number] Oral 240 / 240 Other: # Incontinent Voids 3 Date of Last Bowel Movement 10/06/18 10/08/18 Weight 163 lb 5.8 oz - Imaging and Cardiology Imaging: Impressions Chest X-Ray 10/06/18 18:10 CONCLUSION: Minimal prominence of interstitium likely related to underlying interstitial disease or mild edema. Head CT 10/06/18 18:10 CONCLUSION: 1. No acute abnormality seen. 2. Decreased density seen throughout the cerebral white matter likely related to small vessel ischemic change. . Assessment and Plan - Assessment (1) Hypertensive urgency Code(s): I16.0 - Hypertensive urgency Status: Acute (2) Dementia Code(s): F03.90 - Unspecified dementia without behavioral disturbance Status: Acute (3) History of CVA (cerebrovascular accident) without residual deficits Code(s): Z86.73 - Personal history of transient ischemic attack (TIA), and cerebral infarction without residual deficits Status: Acute - Plan BP improved, but still elevated. Continue and titrate combination tx for HTN. Not taking her meds regularly at home. Increase activity. Will schedule outpt f/ u.
[2018-10-08] MEDS: Pantoprazole Sodium 20 MG DR Tablet PO SCH (21:30)
[2018-10-09] MEDS: niCARdipine 20mg/NS Premix 20 MG/200 ML PIGGYBACK IV.SIG PRN ×3 (01:40→07:25)
[2018-10-09] MEDS: Chlorhexidine Gluconate 2% 1 Pack (2 Cloths) TOPICAL SCH (04:06)
[2018-10-09 06:54] LABS: Calcium 8.6 mg/dL (8.5-10.1); Carbon Dioxide 23.6 meq/L (21.0-32.0); Potassium 3.8 meq/L (3.5-5.1)
[2018-10-09] MEDS: glipiZIDE 5 MG Tablet PO SCH (07:57)
[2018-10-09] MEDS: amLODIPine 10 MG Tablet PO SCH (08:00)
[2018-10-09] MEDS: Senna/Docusate Sodium 8.6/50 MG Tablet PO SCH ×2 (08:00→20:44)
[2018-10-09] MEDS: Famotidine PF Inj 20 MG/2 ML Vial IV.PUSH SCH ×2 (08:01→22:05)
--- NOTE | 2018-10-09 10:15 | P.PNIM ---
Subjective Interval history: BP much better. CEASAR RN. CEASAR . her and her son will take charge of her medications to make sure she takes them. She has dementia that appear to be progressing. Turn off drip this AM. Patient is hallucinating, confused. Physical Exam Vital signs: Vital Signs 10/08/18 10:15 10/08/18 10:19 10/08/18 10:33 Temperature Pulse Rate 65 65 72 Respiratory Rate 29 H 23 Blood Pressure 130/59 L Pulse Oximetry 98 97 10/08/18 10:34 10/08/18 10:45 10/08/18 10:49 Temperature Pulse Rate 67 65 66 Respiratory Rate 23 30 H 24 Blood Pressure 135/59 L 128/59 L Pulse Oximetry 97 99 98 10/08/18 11:00 10/08/18 11:04 10/08/18 11:15 Temperature Pulse Rate 69 64 64 Respiratory Rate 22 25 H 36 H Blood Pressure 126/64 Pulse Oximetry 99 98 97 10/08/18 11:19 10/08/18 11:30 10/08/18 11:34 Temperature Pulse Rate 61 65 64 Respiratory Rate 25 H 32 H 25 H Blood Pressure 129/64 133/63 Pulse Oximetry 98 98 98 10/08/18 11:45 10/08/18 11:49 10/08/18 12:00 Temperature 97.7 F Pulse Rate 69 67 66 Respiratory Rate 25 H 20 24 Blood Pressure 131/76 Pulse Oximetry 98 98 97 10/08/18 12:04 10/08/18 12:15 10/08/18 12:19 Temperature Pulse Rate 65 65 73 Respiratory Rate 22 22 27 H Blood Pressure 144/65 H 145/70 H Pulse Oximetry 99 98 98 10/08/18 12:30 10/08/18 12:34 10/08/18 12:45 Temperature Pulse Rate 67 67 76 Respiratory Rate 35 H 27 H 40 H Blood Pressure 137/61 Pulse Oximetry 97 98 96 10/08/18 12:49 10/08/18 12:54 10/08/18 13:00 Temperature Pulse Rate 75 65 Respiratory Rate 38 H 28 H Blood Pressure 162/75 H Pulse Oximetry 98 10/08/18 13:04 10/08/18 13:15 10/08/18 13:30 Temperature Pulse Rate 70 65 70 Respiratory Rate 29 H 26 H 28 H Blood Pressure 140/64 Pulse Oximetry 98 98 98 10/08/18 13:33 10/08/18 13:45 10/08/18 13:50 Temperature Pulse Rate 69 65 71 Respiratory Rate 29 H 24 47 H Blood Pressure 139/84 140/65 Pulse Oximetry 97 96 97 10/08/18 14:00 10/08/18 14:15 10/08/18 14:30 Temperature Pulse Rate 63 58 L 66 Respiratory Rate 15 18 26 H Blood Pressure 143/65 H 144/65 H 141/65 H Pulse Oximetry 96 96 95 10/08/18 14:38 10/08/18 14:45 10/08/18 14:46 Temperature Pulse Rate 70 69 Respiratory Rate 20 22 Blood Pressure 189/77 H Pulse Oximetry 97 96 10/08/18 14:47 10/08/18 15:00 10/08/18 15:05 Temperature Pulse Rate 69 60 63 Respiratory Rate 20 19 18 Blood Pressure 185/77 H 208/82 H 165/74 H Pulse Oximetry 97 96 96 10/08/18 15:15 10/08/18 15:30 10/08/18 15:45 Temperature Pulse Rate 63 82 73 Respiratory Rate 19 20 24 Blood Pressure 163/73 H 145/67 H 131/61 Pulse Oximetry 96 97 97 10/08/18 16:00 10/08/18 16:15 10/08/18 16:30 Temperature 97.8 F Pulse Rate 79 75 75 Respiratory Rate 18 21 Blood Pressure 152/69 H 131/59 L 122/56 L Pulse Oximetry 96 97 97 10/08/18 16:45 10/08/18 17:00 10/08/18 17:15 Temperature Pulse Rate 77 78 84 Respiratory Rate Blood Pressure 120/58 L 118/57 L Pulse Oximetry 96 96 96 10/08/18 17:30 10/08/18 17:45 10/08/18 18:00 Temperature Pulse Rate 82 85 84 Respiratory Rate 20 Blood Pressure 133/66 135/65 Pulse Oximetry 94 L 94 L 93 L 10/08/18 19:00 10/08/18 19:15 10/08/18 19:22 Temperature Pulse Rate 82 81 77 Respiratory Rate 24 28 H 19 Blood Pressure 129/58 L 125/57 L Pulse Oximetry 95 96 95 10/08/18 19:30 10/08/18 19:37 10/08/18 19:45 Temperature Pulse Rate 75 81 79 Respiratory Rate 15 Blood Pressure 123/56 L Pulse Oximetry 96 96 95 10/08/18 19:52 10/08/18 20:00 10/08/18 20:07 Temperature 97.9 F Pulse Rate 74 75 77 Respiratory Rate 21 21 28 H Blood Pressure 125/57 L 129/56 L Pulse Oximetry 95 95 96 10/08/18 20:15 10/08/18 20:22 10/08/18 20:30 Temperature Pulse Rate 76 77 79 Respiratory Rate 23 21 22 Blood Pressure 142/64 H Pulse Oximetry 95 96 95 10/08/18 20:37 10/08/18 20:45 10/08/18 20:52 Temperature Pulse Rate 77 77 81 Respiratory Rate 21 20 21 Blood Pressure 143/65 H 134/59 L Pulse Oximetry 96 95 94 L 10/08/18 21:00 10/08/18 21:08 10/08/18 21:14 Temperature Pulse Rate 84 86 77 Respiratory Rate 25 H 30 H 22 Blood Pressure 159/70 H 144/65 H Pulse Oximetry 95 96 96 10/08/18 21:15 10/08/18 21:22 10/08/18 21:30 Temperature Pulse Rate 77 76 77 Respiratory Rate 19 22 24 Blood Pressure 144/67 H Pulse Oximetry 97 95 96 10/08/18 21:37 10/08/18 21:45 10/08/18 21:52 Temperature Pulse Rate 76 76 74 Respiratory Rate 20 15 23 Blood Pressure 132/61 128/62 Pulse Oximetry 96 96 95 10/08/18 22:00 10/08/18 22:07 10/08/18 22:15 Temperature Pulse Rate 82 83 84 Respiratory Rate 25 H 24 24 Blood Pressure 151/70 H Pulse Oximetry 95 95 96 10/08/18 22:30 10/08/18 22:45 10/08/18 23:00 Temperature Pulse Rate 77 72 83 Respiratory Rate 20 21 25 H Blood Pressure 133/63 155/64 H Pulse Oximetry 94 L 96 94 L 10/08/18 23:15 10/08/18 23:30 10/08/18 23:32 Temperature Pulse Rate 77 74 75 Respiratory Rate 22 27 H Blood Pressure 120/59 L Pulse Oximetry 94 L 94 L 95 10/08/18 23:45 10/09/18 00:00 10/09/18 00:30 Temperature 98.8 F Pulse Rate 74 75 70 Respiratory Rate 25 H 24 19 Blood Pressure 117/53 L 125/58 L Pulse Oximetry 95 96 94 L 10/09/18 01:00 10/09/18 01:25 10/09/18 01:36 Temperature Pulse Rate 71 79 79 Respiratory Rate 16 24 24 Blood Pressure 164/69 H 108/61 Pulse Oximetry 95 95 94 L 10/09/18 02:00 10/09/18 02:12 10/09/18 02:32 Temperature Pulse Rate 78 80 68 Respiratory Rate 19 Blood Pressure 155/65 H 152/63 H Pulse Oximetry 96 95 93 L 10/09/18 02:45 10/09/18 03:00 10/09/18 03:07 Temperature Pulse Rate 77 67 72 Respiratory Rate 28 H 12 20 Blood Pressure 146/60 H Pulse Oximetry 96 95 96 10/09/18 03:30 10/09/18 04:00 10/09/18 04:30 Temperature 98.8 F Pulse Rate 66 67 67 Respiratory Rate 20 15 Blood Pressure 138/63 136/60 88/49 L Pulse Oximetry 94 L 95 94 L 10/09/18 04:35 10/09/18 04:45 10/09/18 05:00 Temperature Pulse Rate 64 65 62 Respiratory Rate Blood Pressure 130/62 128/62 Pulse Oximetry 95 95 94 L 10/09/18 05:15 10/09/18 05:48 10/09/18 06:00 Temperature Pulse Rate 77 74 67 Respiratory Rate 24 16 Blood Pressure 143/94 H 136/63 125/56 L Pulse Oximetry 94 L 97 95 10/09/18 06:15 10/09/18 06:30 10/09/18 06:34 Temperature Pulse Rate 67 67 67 Respiratory Rate 23 25 H 19 Blood Pressure 118/58 L Pulse Oximetry 96 93 L 93 L 10/09/18 06:45 10/09/18 07:00 10/09/18 07:15 Temperature Pulse Rate 72 75 70 Respiratory Rate 42 H 41 H 23 Blood Pressure Pulse Oximetry 94 L 95 10/09/18 07:23 10/09/18 07:30 10/09/18 07:45 Temperature Pulse Rate 69 71 71 Respiratory Rate 19 36 H 34 H Blood Pressure 135/63 Pulse Oximetry 97 96 Intake & Output 10/08/18 10/09/18 10/09/18 18:59 06:59 18:59 Intake Total 600 / 600 1040 / 1040 200 / 200 Balance 600 / 600 1040 / 1040 200 / 200 Weight 74.6 kg Intake: IV 600 / 600 800 / 800 200 / 200 Cardene 20 mg/NS 200 ml Premix 600 / 600 800 / 800 200 / 200 20 mg In 200 ml @ 5 MG/HR 50 mls/hr IV.SIG TITRATE PRN Rx#: [id number] Oral 240 / 240 Other: # Incontinent Voids 5 4 Date of Last Bowel Movement 10/08/18 10/08/18 # Bowel Movements 2 Narrative: GENERAL: Elderly female in no acute distress. Confused and hallucinating CARDIOVASCULAR: Normal rate and regular rhythm without murmurs, gallops, or rubs. RESPIRATORY: Good respiratory efforts. Breath sounds equal and clear to auscultation bilaterally. GASTROINTESTINAL: Abdomen soft, non-tender, non-distended. Normal active bowel sounds MUSCULOSKELETAL: Extremities without cyanosis, or edema. NEURO: Alert and oriented to self only. Moves all ext x4 PSYCH: Confused, hallucinating Results - Labs CBC & Chem 7: 10/07/18 05:24 10/09/18 05:49 Laboratory Results - last 24 hr 10/09/18 10/09/18 00:25 05:49 Sodium 142 Potassium 3.8 Chloride 109 H Carbon Dioxide 23.6 Anion Gap 9 BUN 18 Creatinine 1.18 H Estimated GFR 44 L POC Glucose 114 H Random Glucose 114 H Calcium 8.6 Assessment and Plan - Plan 78-year-old female with dementia admitted to the hospital for hypertensive urgency secondary to noncompliance with medications. Apparently the patient has been more forgetful and has not been taking her antihypertensives. She was admitted to the ICU on a Cardene drip. Hypertensive urgency: - Wean off Cardene drip. -BP much better controlled. Current regimen includes Norvasc, Cozaar, metoprolol. -I discussed the need for compliance at length with the patient's . They are planning to move to an [facility] within the next month. He reports that once she is discharged from the hospital, he will take charge of her medications and her son will be helping as well. Dementia with behavioral disturbances: Probably made worse by being in the ICU and unfamiliar environment. -Will consult psychiatry for assistance. Her symptoms would likely continue to progress given the progressive nature of dementia. - Add low dose Haldol PRN. Discharge Planning: Okay to transfer to the medical floor. Anticipate discharge tomorrow with home health if blood pressure remained control and behavior is at baseline.
[2018-10-09] MEDS ORDERED: Haloperidol 1 MG Tablet PO PRN (15:01)
[2018-10-09] MEDS ORDERED: QUEtiapine 25 MG Tablet PO ONE (19:15)
[2018-10-09] MEDS: Pantoprazole Sodium 20 MG DR Tablet PO SCH (20:45)
[2018-10-10] MEDS: Chlorhexidine Gluconate 2% 1 Pack (2 Cloths) TOPICAL SCH (03:52)
[2018-10-10] MEDS: glipiZIDE 5 MG Tablet PO SCH (06:48)
[2018-10-10] MEDS: amLODIPine 10 MG Tablet PO SCH (08:28)
[2018-10-10] MEDS: Famotidine PF Inj 20 MG/2 ML Vial IV.PUSH SCH ×2 (08:28→21:59)
[2018-10-10] MEDS: Senna/Docusate Sodium 8.6/50 MG Tablet PO SCH ×2 (08:28→22:00)
[2018-10-10 08:58] LABS: Calcium 9.1 mg/dL (8.5-10.1); Carbon Dioxide 27.8 meq/L (21.0-32.0); Potassium 3.5 meq/L (3.5-5.1)
--- NOTE | 2018-10-10 09:59 | P.PN ---
Subjective Interval history: This is a pleasant 78 y/o Female with Hypertensive Urgency, weaned off Cardene, she has Dementia, her relatives have the compromise to give her her medicines from now. confused. 10/10: Seen in her bedroom, pleasantly demented but improving, no nausea, vomit or diarrhea. Physical Exam Vital signs: Vital Signs 10/09/18 10:00 10/09/18 10:15 10/09/18 10:30 Temperature Pulse Rate 61 61 60 Respiratory Rate 41 H 22 24 Blood Pressure 143/83 H 145/67 H 141/57 H Pulse Oximetry 99 98 98 10/09/18 10:45 10/09/18 11:00 10/09/18 12:00 Temperature 97.8 F Pulse Rate 61 64 66 Respiratory Rate 22 20 22 Blood Pressure 138/70 112/64 147/71 H Pulse Oximetry 98 99 10/09/18 13:00 10/09/18 16:00 10/09/18 20:00 Temperature 97.8 F 97.8 F Pulse Rate 67 76 79 Respiratory Rate 29 H 18 20 Blood Pressure 152/65 H 157/85 H 179/77 H Pulse Oximetry 97 97 10/09/18 20:30 10/09/18 22:00 10/10/18 00:00 Temperature 97.6 F Pulse Rate 80 75 Respiratory Rate 20 Blood Pressure 152/70 H 164/70 H Pulse Oximetry 95 10/10/18 00:52 10/10/18 04:00 Temperature 97.9 F Pulse Rate 65 75 Respiratory Rate 20 Blood Pressure Pulse Oximetry 96 Intake & Output 10/09/18 10/10/18 10/10/18 18:59 06:59 18:59 Intake Total 200 / 200 120 / 120 Balance 200 / 200 120 / 120 Weight 72.7 kg Intake: IV 200 / 200 Cardene 20 mg/NS 200 ml Premix 200 / 200 20 mg In 200 ml @ 5 MG/HR 50 mls/hr IV.SIG TITRATE PRN Rx#: [id number] Oral 120 / 120 Other: # Incontinent Voids 2 Date of Last Bowel Movement 10/08/18 Narrative: GENERAL: Elderly female in no acute distress. confused but improving, no agitation. CARDIOVASCULAR: Normal rate and regular rhythm without murmurs, gallops, or rubs. RESPIRATORY: Good respiratory efforts. Breath sounds equal and clear to auscultation bilaterally. GASTROINTESTINAL: Abdomen soft, non-tender, non-distended. Normal active bowel sounds MUSCULOSKELETAL: Extremities without cyanosis, or edema. NEURO: Alert and oriented to self only. Moves all ext x4 PSYCH: Confused Results - Labs CBC & Chem 7: 10/07/18 05:24 10/10/18 07:00 Laboratory Results - last 24 hr 10/09/18 10/10/18 10/10/18 17:50 02:04 06:47 Sodium Potassium Chloride Carbon Dioxide Anion Gap BUN Creatinine Estimated GFR POC Glucose 99 138 H 124 H Random Glucose Calcium 10/10/18 07:00 Sodium 144 Potassium 3.5 Chloride 106 Carbon Dioxide 27.8 Anion Gap 10 BUN 16 Creatinine 1.08 H Estimated GFR 49 L POC Glucose Random Glucose 113 H Calcium 9.1 - Imaging Chest X-Ray 10/06/18 18:10 CONCLUSION: Minimal prominence of interstitium likely related to underlying interstitial disease or mild edema. Head CT 10/06/18 18:10 CONCLUSION: 1. No acute abnormality seen. 2. Decreased density seen throughout the cerebral white matter likely related to small vessel ischemic change. . - Procedures None Assessment and Plan - Plan 78-year-old female with dementia admitted to the hospital for hypertensive urgency secondary to noncompliance with medications. Apparently the patient has been more forgetful and has not been taking her antihypertensives. She was admitted to the ICU on a Cardene drip. Hypertensive urgency: - Weaned off Cardene drip. -BP much better controlled. Current regimen includes Norvasc, Cozaar, metoprolol. 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 no admission recommended. DVT prophylaxis with Heparin. Code Status: Full code. Discussed Condition With: Patient and nurse Miss Sierra. Discharge Planning: Expected in one to two days
[2018-10-10] MEDS ORDERED: Haloperidol Inj 5 MG/ML Ampul IM PRN (10:29)
--- NOTE | 2018-10-10 10:41 | P.CONPSY ---
Provisional Diagnosis Admission Date: October 06, 2018 19:57 Norris I.: Neurocognitive deficits (dementia), rule out superimposed delirium History of Present Illness Service: Psychiatry Consult date: 10/10/18 Reason for Consult: Agitation Primary Care Provider: UNKNOWN Chief Complaint: dont feel good History of Present Illness: Patient is a 78-year-old woman, domiciled with son, retired, with no formal past psychiatric history, no previous psychiatric diagnoses, psychiatric admissions, suicide attempts or prior mental health services as per patient, with a past mental history significant for CKD, HTN and CVA who was admitted to the medical service due to hypertensive emergency secondary to noncompliance with medications with psychiatry were consulted for evaluation of agitation. Discussion nursing staff reported the patient was agitated last evening and required restraints but that receive any medications for agitation. Patient is alert and oriented to person only. Patient was found lying in hospital bed in soft restraints noted to be calm and cooperative. Patient is continues to be alert and oriented only to person when at times state she believes she may be in hospital but they would revert back stating that she thought she was at her home. Patient states she is 58 years old and believes that she was in her son' s house. Patient mentions having had difficulty with memory stating "I just want her around" and having much difficulty recalling her history. Patient admits to noncompliance with medications stating that she forgets to take her medications at home and is agreeable that she needs help to remind her. Patient also becomes tearful when stating that she feels that she is forgetful and states that she gets lost going down the street. She denies any depressed mood stating her mood is "pretty good" denying any manic or psychotic symptoms at this time denying any perceptual disturbances or delusions currently. Patient was agreeable to continue treatment here in the hospital stating that she will take her medications if the nurse provides him and agrees to having more services at home or facility where she is providing more help. Family psychiatric history: Denies Past psychiatric history: Denies Substance use history: Denies Past medical history: Hypertension, CVA, CKD Social history: Javon son (Vincent), retired, reports having siblings still alive. Review of Systems All other systems reviewed negative except as stated in HPI [facility] - History History Provided By: Patient, Medical Record - Medical History Medical History: Medical History (Last Reviewed 10/07/18 @ 07:52 by Ezequiel Logan DO) Stroke Alzheimer's disease Dementia Hypertension Kidney disease - Tobacco History Second Hand Smoke Exposure: No Smoking Status: Never smoker - Alcohol History How Often Do You Have a Drink Containing Alcohol: Never - Substance Use History Substance History: No History of Abuse - Travel History Recent Travel in the [place] Within the Last 8 Weeks: No Recent Travel Out of the Country Within the Last 8 Weeks: No - Immunization History Tetanus Immunization: Unsure Hx Influenza Vaccine This Season: Unable to Assess Medications and Allergies Active Medications: Active Medications Al Hydroxide/Mg Hydroxide (Milk Of Khanh Lisherrill) 30 ml PO Q12H PRN PRN Reason: Mild Constipation Amlodipine Besylate (Norvasc) 10 mg PO DAILY [facility] Last Admin: 10/10/18 08:28 Dose: 10 mg Atorvastatin Calcium (Lipitor) 20 mg PO HS [facility] Last Admin: 10/09/18 20:44 Dose: Not Given Bisacodyl (Dulcolax Supp) 10 mg RECTAL DAILY PRN PRN Reason: SEVERE CONSITIPATION Chlorhexidine Gluconate (Chlorhexidine 2% Cloth) 3 pack TOPICAL DAILY@0400 [facility] Stop: 10/12/18 03:59 Last Admin: 10/10/18 03:52 Dose: 3 pack Chlorhexidine Gluconate (Chlorhexidine 2% Cloth) 3 pack TOPICAL DAILY@0400 PRN PRN Reason: Extra cloth needed Stop: 10/12/18 03:59 Clopidogrel Bisulfate (Plavix) 75 mg PO DAILY [facility] Last Admin: 10/10/18 08:28 Dose: 75 mg Famotidine (Pepcid) 10 mg PO BID [facility] Famotidine (Pepcid Pf Inj) 10 mg IV.PUSH Q12HR [facility] Last Admin: 10/10/18 08:28 Dose: 10 mg Glipizide (Glucotrol) 5 mg PO DAILYAC [facility] Last Admin: 10/10/18 06:48 Dose: 5 mg Haloperidol Lactate (Haldol Inj) 2 mg IM Q8H PRN PRN Reason: AGITATION Nicardipine/Sodium Chloride (Cardene 20 Mg/Ns 200 Ml Premix) 20 mg in 200 mls @ 50 mls/hr IV.SIG TITRATE PRN; Protocol PRN Reason: Per Protocol Last Titration: 10/09/18 10:00 Dose: 0 mg/hr, 0 mls/hr Lactulose (Lactulose Liq) 30 ml PO DAILY PRN PRN Reason: SEVERE CONSITIPATION Losartan Potassium (Cozaar) 50 mg PO DAILY [facility] Last Admin: 10/10/18 08:28 Dose: 50 mg Metoprolol Succinate (Toprol Xl) 50 mg PO DAILY [facility] Last Admin: 10/10/18 08:27 Dose: 50 mg Pantoprazole Sodium (Protonix) 20 mg PO [facility] Last Admin: 10/09/18 20:45 Dose: Not Given Ptownmed(Linagliptin ([Tradjenta] 5 Mg)) 0 each PO DAILY [facility] Senna/Docusate Sodium (Camila-Colace) 1 tab PO BID [facility] Last Admin: 10/10/18 08:28 Dose: 1 tab Sennosides (Senokot) 17.2 mg PO Q12H PRN PRN Reason: Moderate Constipation Sodium Chloride (Ns Flush) 2 ml IV.FLUSH BID [facility] Last Admin: 10/10/18 08:28 Dose: 2 ml Sodium Chloride (Ns Flush) 2 ml IV.FLUSH PRN PRN PRN Reason: FLUSH AFTER USING IV ACCESS Allergies Allergy/AdvReac Type Severity Reaction Status Date / Time ampicillin Allergy Intermediate DIARRHEA Verified 10/06/18 17:08 Home Medications Medication Instructions Recorded Confirmed Type amlodipine 10 mg PO DAILY 09/18/18 10/06/18 History glipizide 5 mg PO DAILY 09/18/18 10/06/18 History linagliptin [Tradjenta] 5 mg PO DAILY 09/18/18 10/06/18 History omeprazole 20 mg PO HS 09/18/18 10/06/18 History Exam Vital signs: Vital Signs 10/09/18 10:45 10/09/18 11:00 10/09/18 12:00 Temperature 97.8 F Pulse Rate 61 64 66 Respiratory Rate 22 20 22 Blood Pressure 138/70 112/64 147/71 H Pulse Oximetry 98 99 10/09/18 13:00 10/09/18 16:00 10/09/18 20:00 Temperature 97.8 F 97.8 F Pulse Rate 67 76 79 Respiratory Rate 29 H 18 20 Blood Pressure 152/65 H 157/85 H 179/77 H Pulse Oximetry 97 97 10/09/18 20:30 10/09/18 22:00 10/10/18 00:00 Temperature 97.6 F Pulse Rate 80 75 Respiratory Rate 20 Blood Pressure 152/70 H 164/70 H Pulse Oximetry 95 10/10/18 00:52 10/10/18 04:00 Temperature 97.9 F Pulse Rate 65 75 Respiratory Rate 20 Blood Pressure Pulse Oximetry 96 Intake & Output 10/09/18 10/10/18 10/10/18 18:59 06:59 18:59 Intake Total 200 / 200 120 / 120 Balance 200 / 200 120 / 120 Weight 72.7 kg Intake: IV 200 / 200 Cardene 20 mg/NS 200 ml Premix 200 / 200 20 mg In 200 ml @ 5 MG/HR 50 mls/hr IV.SIG TITRATE PRN Rx#: [id number] Oral 120 / 120 Other: # Incontinent Voids 2 Date of Last Bowel Movement 10/08/18 - Constitutional no acute distress, cooperative Mental Status Examination Appearance: Appropriate, Other (Noted to be in soft restraints) Consciousness: Alert Orientation: Person Speech: Unremarkable Language: Adequate Fund of Knowledge: Inadequate Attention and Concentration: Adequate Memory: Impaired Mood: Appropriate Affect: Appropriate Thought Process & Associations: Intact, Linear Thought Content: Appropriate Hallucination Type: None Delusion Type: None Suicidal Ideation: No Suicidal Plan: No Suicidal Intention: No Homicidal Ideation: No Homicidal Plan: No Homicidal Intention: No Insight: Poor Judgment: Impulsive Assessment and Plan - Assessment (1) Dementia Code(s): F03.90 - Unspecified dementia without behavioral disturbance Status: Acute - Plan Plan: Estimated LOS: [] days Patient is a 78-year-old woman who carries a diagnosis of dementia, no previous psychiatric admissions, suicide attempts or psychiatric services was admitted to the medical service for hypertensive urgency with psychiatry was consulted for evaluation of agitation. Patient last evening did require soft restraints and had review some of her medications but did not receive any psychotropic medications to manage her agitation. Patient noted with neurocognitive deficits from previous diagnosis of dementia but also may have superimposed delirium secondary to current medical conditions. Patient would benefit from social worker psychiatric to assist and exploring possible residential facilities that would provide support services if family is unable to care for patient at home. If patient and family decided to have patient return home having home health services implemented would be of assistance for the family and patient. logistics planning manager/social media job titles to assist in disposition planning. Recommend Haldol 2 mg IM every 8 hours as needed for agitation. Patient at this time appears to be willing to continue recommendations and be compliant with her treatment. Patient at this time does not meet criteria for inpatient psychiatric level of care. Consult appreciated. Justification for Continued Inpatient Stay: At risk of further decompensation at lower level care. (1) Dementia Qualifiers: Alzheimer's disease onset: unspecified onset
[2018-10-10] MEDS: Pantoprazole Sodium 20 MG DR Tablet PO SCH (22:01)
[2018-10-10] MEDS ORDERED: hydrALAZINE 25 MG Tablet PO ONE (22:53)
[2018-10-11] MEDS: Chlorhexidine Gluconate 2% 1 Pack (2 Cloths) TOPICAL SCH (04:03)
[2018-10-11] MEDS: glipiZIDE 5 MG Tablet PO SCH (06:03)
[2018-10-11] MEDS: amLODIPine 10 MG Tablet PO SCH (09:43)
[2018-10-11] MEDS: Famotidine PF Inj 20 MG/2 ML Vial IV.PUSH SCH (09:43)
[2018-10-11] MEDS: Senna/Docusate Sodium 8.6/50 MG Tablet PO SCH ×2 (09:43→22:10)
--- NOTE | 2018-10-11 15:52 | P.PN ---
Subjective Interval history: This is a pleasant 78 y/o Female with Hypertensive Urgency, weaned off Cardene, she has Dementia, her relatives have the compromise to give her her medicines from now. confused. 10/10: Seen in her bedroom, pleasantly demented but improving. 10/11: Stable in her bedroom, today alert and oriented in place and Person, asked the nurse to remove restraints, also continue adjusting medicines for blood pressure added Spironolactone and increased Losartan to 100 mg daily following. no nausea, vomit or diarrhea. Physical Exam Vital signs: Vital Signs 10/10/18 16:00 10/10/18 20:00 10/11/18 00:00 Temperature 97.9 F 98.1 F 97.8 F Pulse Rate 75 65 67 Respiratory Rate 20 20 20 Blood Pressure 194/86 H 190/85 H 181/78 H Pulse Oximetry 96 96 97 10/11/18 04:00 10/11/18 08:00 10/11/18 12:00 Temperature 97.5 F L 97.0 F L 98.0 F Pulse Rate 68 61 64 Respiratory Rate 20 16 14 Blood Pressure 178/82 H 177/78 H 154/60 H Pulse Oximetry 96 96 98 Intake & Output 10/10/18 10/11/18 10/11/18 18:59 06:59 18:59 Intake Total 240 / 240 Balance 240 / 240 Weight 71.3 kg Intake: Oral 240 / 240 Other: # Voids 1 2 Date of Last Bowel Movement 10/08/18 # Bowel Movements 0 Narrative: GENERAL: Elderly female in no acute distress. confused but improving, no agitation. CARDIOVASCULAR: Normal rate and regular rhythm without murmurs, gallops, or rubs. RESPIRATORY: Good respiratory efforts. Breath sounds equal and clear to auscultation bilaterally. GASTROINTESTINAL: Abdomen soft, non-tender, non-distended. Normal active bowel sounds MUSCULOSKELETAL: Extremities without cyanosis, or edema. NEURO: Alert and oriented to self only. Moves all ext x4 PSYCH: Confused Results - Labs CBC & Chem 7: 10/07/18 05:24 10/10/18 07:00 Laboratory Results - last 24 hr 10/11/18 01:55 POC Glucose 102 - Imaging Chest X-Ray 10/06/18 18:10 CONCLUSION: Minimal prominence of interstitium likely related to underlying interstitial disease or mild edema. Head CT 10/06/18 18:10 CONCLUSION: 1. No acute abnormality seen. 2. Decreased density seen throughout the cerebral white matter likely related to small vessel ischemic change. . - Procedures None Assessment and Plan - Plan 78-year-old female with dementia admitted to the hospital for hypertensive urgency secondary to noncompliance with medications. Apparently the patient has been more forgetful and has not been taking her antihypertensives. She was admitted to the ICU on a Cardene drip. Hypertensive urgency: continue with uncontrolled blood pressure added Spironolactone 25 mg daily and increased Losartan to 100 mg daily. - Weaned off Cardene drip. -BP much better controlled. Current regimen includes Norvasc, Cozaar, metoprolol. Medical Non compliance will need better management by social director. Dementia with behavioral disturbances: Seen by Psychiatry specialist and recommended for neurology manager for social director Haldol 2 mg as needed every 8 hours. no admission recommended. DVT prophylaxis with Heparin. Code Status: Full code. Discussed Condition With: patient and Nurse Miss Hooper and ROEL. Discharge Planning: Expected by tomorrow.
[2018-10-11] MEDS: Spironolactone 25 MG Tablet PO SCH (16:39)
[2018-10-11] MEDS: Pantoprazole Sodium 20 MG DR Tablet PO SCH (22:10)
[2018-10-11] MEDS: Heparin - SQ 10,000 UNITS/ML Vial SQ SCH (22:10)
[2018-10-12] MEDS: Heparin - SQ 10,000 UNITS/ML Vial SQ SCH ×3 (06:10→21:56)
[2018-10-12] MEDS: glipiZIDE 5 MG Tablet PO SCH (06:10)
[2018-10-12] MEDS: Spironolactone 25 MG Tablet PO SCH (09:12)
[2018-10-12] MEDS: amLODIPine 10 MG Tablet PO SCH (09:12)
[2018-10-12] MEDS: Senna/Docusate Sodium 8.6/50 MG Tablet PO SCH ×2 (09:12→21:56)
--- NOTE | 2018-10-12 09:38 | P.PN ---
Subjective Interval history: This is a pleasant 78 y/o Female with Hypertensive Urgency, weaned off Cardene, she has Dementia, her relatives have the compromise to give her her medicines from now. confused. 10/10: Seen in her bedroom, pleasantly demented but improving. 10/11: Stable in her bedroom, today alert and oriented in place and Person, asked the nurse to remove restraints, also continue adjusting medicines for blood pressure added Spironolactone and increased Losartan to 100 mg daily following. 10/12: Discussed with nurse Miss Hooper, no nausea, vomit or diarrhea. improved her blood pressure continue present care okay to discharge home on [facility] for PT. Physical Exam Vital signs: Vital Signs 10/11/18 12:00 10/11/18 16:00 10/11/18 20:00 Temperature 98.0 F 98.0 F 97.2 F L Pulse Rate 66 67 62 Respiratory Rate 14 16 20 Blood Pressure 154/60 H 167/77 H 126/72 Pulse Oximetry 98 99 97 10/12/18 00:00 10/12/18 00:10 10/12/18 04:00 Temperature 98.1 F 98.1 F Pulse Rate 67 66 65 Respiratory Rate 20 20 Blood Pressure 161/73 H 127/75 Pulse Oximetry 96 97 10/12/18 08:00 Temperature Pulse Rate 65 Respiratory Rate Blood Pressure Pulse Oximetry Intake & Output 10/11/18 10/12/18 10/12/18 18:59 06:59 18:59 Intake Total 480 / 480 Balance 480 / 480 Weight 70.8 kg Intake: Oral 480 / 480 Other: # Voids 2 3 # Incontinent Voids 1 Date of Last Bowel Movement 10/08/18 10/11/18 # Bowel Movements 3 Narrative: GENERAL: Elderly female in no acute distress alert and oriented today. CARDIOVASCULAR: Normal rate and regular rhythm without murmurs, gallops, or rubs. RESPIRATORY: Good respiratory efforts. Breath sounds equal and clear to auscultation bilaterally. GASTROINTESTINAL: Abdomen soft, non-tender, non-distended. Normal active bowel sounds MUSCULOSKELETAL: Extremities without cyanosis, or edema. NEURO: Alert and oriented to self only. Moves all ext x4 PSYCH: Confused Results - Labs CBC & Chem 7: 10/07/18 05:24 10/10/18 07:00 Laboratory Results - last 24 hr 11/10/11/18 10/11/18 15:36 15:37 17:40 POC Glucose 205 H 113 H 147 H 10/12/18 10/12/18 00:36 05:44 POC Glucose 175 H 82 - Imaging Chest X-Ray 10/06/18 18:10 CONCLUSION: Minimal prominence of interstitium likely related to underlying interstitial disease or mild edema. Head CT 10/06/18 18:10 CONCLUSION: 1. No acute abnormality seen. 2. Decreased density seen throughout the cerebral white matter likely related to small vessel ischemic change. . - Procedures None Assessment and Plan - Plan 78-year-old female with dementia admitted to the hospital for hypertensive urgency secondary to noncompliance with medications. Apparently the patient has been more forgetful and has not been taking her antihypertensives. She was admitted to the ICU on a Cardene drip. Hypertensive urgency: continue with uncontrolled blood pressure added Spironolactone 25 mg daily and increased Losartan to 100 mg daily. - Weaned off Cardene drip. -BP much better controlled. Current regimen includes Norvasc, Cozaar, metoprolol. will need to follow with PCP in three days Medical Non compliance will need better management by social sciences chair. Dementia with behavioral disturbances: Seen by Psychiatry specialist and recommended for manager cable for social sciences chair Haldol 2 mg as needed every 8 hours. no admission recommended. DVT prophylaxis with Heparin. Code Status: Full code. Discussed Condition With: patient and nurse Miss Hooper. Discharge Planning: Discharge Home on [facility] for PT and skilled nurse.
--- NOTE | 2018-10-12 16:40 | P.DCO ---
- Diagnosis (1) Acute CVA (cerebrovascular accident) Status: Acute (2) Hypertensive urgency Status: Acute (3) Encephalopathy acute Status: Acute - Physical Therapy Order: Evaluate and treat, Improve ambulation, Strength and gait training - Home Health Nursing Order: Medical education, Signs/symptoms of disease process, Diabetic education , Medication education-adverse effect, Nursing assessment with vital signs - Case Management Consult Case Management Consult-Home Health: Yes - Certification I have seen patient Lydia Carpenter on 10/12/18. My clinical findings support the need for the requested home health care services because: Deconditioned with increased weakness I certify that my clinical findings support that this patient is homebound because: Unsafe to leave home unassisted
--- NOTE | 2018-10-12 16:41 | P.DS ---
Date of admission: 10/06/18 19:57 Primary care physician: UNKNOWN Attending physician on discharge: Morgan Avendano Anticipated date of discharge: 10/12/18 Brief History from admission: pt has had longwall foreman htn and diabetes unfortunately she often forgets her meds and presented to ed with severe htn patient reviewed with ed doctor last pm and admission orders entered DS: Diagnosis - Discharge Diagnosis (1) Acute CVA (cerebrovascular accident) Status: Acute (2) Hypertensive urgency Status: Acute (3) Encephalopathy acute Status: Acute DS: Summary Hospital Course: This is a pleasant 78 y/o Female with Hypertensive Urgency, weaned off Cardene, she has Dementia, her relatives have the compromise to give her her medicines from now. confused. 10/10: Seen in her bedroom, pleasantly demented but improving. 10/11: Stable in her bedroom, today alert and oriented in place and Person, asked the nurse to remove restraints, also continue adjusting medicines for blood pressure added Spironolactone and increased Losartan to 100 mg daily following. 10/12: Discussed with nurse Miss Hooper, no nausea, vomit or diarrhea. improved her blood pressure continue present care okay to discharge home on [facility] for PT. Assessment and Plan - Plan 78-year-old female with dementia admitted to the hospital for hypertensive urgency secondary to noncompliance with medications. Apparently the patient has been more forgetful and has not been taking her antihypertensives. She was admitted to the ICU on a Cardene drip. Hypertensive urgency: continue with uncontrolled blood pressure added Spironolactone 25 mg daily and increased Losartan to 100 mg daily. - Weaned off Cardene drip. -BP much better controlled. Current regimen includes Norvasc, Cozaar, metoprolol. will need to follow with PCP in three days Medical Non compliance will need better management by outreach and education social worker. Dementia with behavioral disturbances: Seen by Psychiatry specialist and recommended for project manager process development for outreach and education social worker Haldol 2 mg as needed every 8 hours. no admission recommended. DVT prophylaxis with Heparin. Code Status: Full code. Discussed Condition With: patient and nurse Miss Hooper. Discharge Planning: Discharge Home on [facility] for PT and skilled nurse. - Time Spent with Patient Total time spent providing and/or coordinating discharge services: Greater than 30 minutes - Quality: VTE Deep Vein Thrombosis/Pulmonary Embolism Present on Admission: No Exam Vital signs: Vital Signs 10/11/18 20:00 10/12/18 00:00 10/12/18 00:10 Temperature 97.2 F L 98.1 F Pulse Rate 62 67 66 Respiratory Rate 20 20 Blood Pressure 126/72 161/73 H Pulse Oximetry 97 96 10/12/18 04:00 10/12/18 08:00 10/12/18 12:00 Temperature 98.1 F 97.9 F 96.5 F L Pulse Rate 65 77 68 Respiratory Rate 20 17 15 Blood Pressure 127/75 175/89 H 158/76 H Pulse Oximetry 97 99 99 Intake & Output 10/11/18 10/12/18 10/12/18 18:59 06:59 18:59 Intake Total 480 / 480 Balance 480 / 480 Weight 70.8 kg Intake: Oral 480 / 480 Other: # Voids 2 3 # Incontinent Voids 1 Date of Last Bowel Movement 10/08/18 10/11/18 # Bowel Movements 3 Narrative: GENERAL: Elderly female in no acute distress alert and oriented today. CARDIOVASCULAR: Normal rate and regular rhythm without murmurs, gallops, or rubs. RESPIRATORY: Good respiratory efforts. Breath sounds equal and clear to auscultation bilaterally. GASTROINTESTINAL: Abdomen soft, non-tender, non-distended. Normal active bowel sounds MUSCULOSKELETAL: Extremities without cyanosis, or edema. NEURO: Alert and oriented to self only. Moves all ext x4 PSYCH: Confused Results Procedures completed during hospitalization: None Labs on day of discharge: Labs from last 24 hours 10/12/18 10/12/18 10/12/18 12:08 05:44 00:36 POC Glucose 109 82 175 H 10/11/18 17:40 POC Glucose 147 H - Impressions ITS Impressions Chest X-Ray 10/06/18 18:10 CONCLUSION: Minimal prominence of interstitium likely related to underlying interstitial disease or mild edema. Head CT 10/06/18 18:10 CONCLUSION: 1. No acute abnormality seen. 2. Decreased density seen throughout the cerebral white matter likely related to small vessel ischemic change. . Discharge Plan - Discharge Disposition Patient Disposition: W/Home Health Service - Discharge Condition Condition: Stable - Discharge Order Discharge Orders: Discharge Order (Routine); Ordered 10/12/18 Ordered By: Morgan Avendano - Discharge Details Anticipated Discharge Date: 10/12/18 Discharge Comment: Follow up with PCP in three days. - Physicians Team Primary Care Provider: UNKNOWN, Attending Provider: Cliff Phipps Other Providers: John Meeks MD ; Freddy Patel MD
[2018-10-12] MEDS: Pantoprazole Sodium 20 MG DR Tablet PO SCH (21:57)
[2018-10-12] MEDS ORDERED: hydrALAZINE 25 MG Tablet PO ONE (23:29)
[2018-10-13] MEDS ORDERED: hydrALAZINE 25 MG Tablet PO ONE (04:56)
[2018-10-13] MEDS: Heparin - SQ 10,000 UNITS/ML Vial SQ SCH (05:32)
[2018-10-13] MEDS: glipiZIDE 5 MG Tablet PO SCH (06:08)
[2018-10-13] MEDS: Spironolactone 25 MG Tablet PO SCH (08:45)
[2018-10-13] MEDS: amLODIPine 10 MG Tablet PO SCH (08:45)
[2018-10-13] MEDS: Senna/Docusate Sodium 8.6/50 MG Tablet PO SCH (08:47)
[2018-10-13 08:51] VITALS: BP 158/87; RESP 19; TEMP 97.3; O2SAT 98
[2018-10-13 10:29] VITALS: PULSE 93
== END 2018-10-13 12:18 | disposition home health service (06) ==
LOC: NEPC 17:00 → NEDA 19:57 → N03 23:14 → N04 10-09 16:16
PROVIDERS: ADMIT Family Medicine; ATTEND Family Medicine